=== PATIENT | female | born 1935 | race Caucasian/White ===

== ENCOUNTER → 2017-10-18 11:48 | Outpatient (CLI) | payer MEDICARE, OTHER, SELFPAY ==
[2017-10-18 11:56] LABS: Mucous, Urine 0 SEEN /hpf (<or=2+); Red Blood Cells-Urine 0 SEEN /hpf (0-5)
[2017-10-18 16:01] LABS: Color, Urine Yellow (Yellow); Glucose, Dipstick Normal (Normal); Ketone-Dipstick Negative (Negative); Leukocyte Esterase-Dipstick 500 /ul (Negative); Nitrite-Dipstick Positive (Negative); Occult Blood-Urine Negative /ul (Negative); Protein-Dipstick Negative (Negative); Urine Bilirubin Dipstick Negative (Negative); Urine Clarity Sl. Cloudy (Clear); Urine Urobilinogen Normal (Normal)
[2017-10-18 16:16] LABS: Anion Gap 8 (5-15); BUN 12 mg/dL (7-18); BUN/Creat Ratio 21.1 RATIO (10-20); Calcium,Total 9.2 mg/dL (8.5-10.1); Chloride 103 mmol/L (98-107); Creatinine, Serum 0.57 mg/dL (0.55-1.02); EST Glomerular Filtration Rate 108 mL/min (>60); Est Glom Filt Rate - Afr Amer 131 mL/min (>60); Glucose 82 mg/dL (70-110); Sodium Level 140 mmol/L (136-145); Thyroid Stim Hormone (TSH) 1.11 uIU/mL (0.358-3.74)
[2017-10-18 16:21] LABS: Squamous Epithelial Cells - UA 0-5 SEEN /hpf (5-10); White Blood Cells 10-25 SEEN /hpf (0-5)
[2017-10-18 16:22] LABS: Bacteria RARE /hpf (None Seen)
== END ==
PROVIDERS: Family Provider Family Medicine; PCP Family Medicine; Visit Provider Family Medicine
DX: I10 Essential (primary) hypertension (principal); E03.9 Hypothyroidism, unspecified
CPT/HCPCS: 36415; 80048; 81001; 84443

== ENCOUNTER 2017-11-07 13:00 | Outpatient (RCR) | payer MEDICARE, OTHER, SELFPAY ==
--- NOTE | 2017-10-25 13:21 | HP.PTEVAL_ITS ---
Patient's Visit Information DAVIAN ESCALERA is a 81 year old F referred to Physical Therapy by ALISHA AZUL with a diagnosis of Physical deconditioning.. Date of Evaluation: 10/25/17 Physical Therapist: Abran Torres DPT, OC - Visit Plan Frequency: 2x /Week Duration: 4-6 Weeks Plan: 2x/week for 4 weeks... 1. Teach machines for LE strength and work to I membership. 2. Teach balance ex on foam and or ec and dynamic and work to I with pics. 3. Functional steps and transfer to and fro floor. - Subjective Subjective: Has meningiomas and gets checked yearly. Doctor thought that she needs some ex for balance and because she is inactive. Tumors are front and R. Physical therapy in the past has made her feel. PT admits to getting winded easy and being unsteady although no falls recently. Last fall was a number of months ago as she was bending to get something in the closet. Got back up was a struggle but was able to do it. H/O B knee and hip replacement. Aslo hard to get out of tub, needed to call grandchildren to get out of tub last time so does not do it anymore (take a bath). Would love to take a bath. Did not have the strength. 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 No spinning. No numbness in legs but feels like she may have neuropathy. Had injection in R shoulder 3 months ago. Sleep is OK but stays up late as she is a night owl. Gets 7 hours sleep. Has cane that she uses occasionally if out of breath or tired and walking into college basketball games. Has steps to basement with railing to do laundry, doesnt like the steps and they wear her out. Basic ADLs are OK, dresses self, not much cooking or cleaning, makes her own meals. Does not work outside of the home. No regular exercises. Sits alot of day TV computer and reading. - Objective Walks well safe and I on firm flat surface. trasnfers I. Steps are reciprocal and needs railing. reflexes patella and achilles 1/3. Sensation LE distally is limited to gross light touch. strength LE 3+ hips and ankles, 4- knees. Functionally weak on steps noticably. Coordination to reciprocal toe and heel tap is minimal deficits as is heel to alex. VOR is unable to walk and mvoe head while focussing, head stops. - Balance Scores Functional Gait Assessment Score: 19 % Disability: 36.6700 CATSIB Score (Max score 120 seconds): 83 - Goals Goal 1:: FGA to limit fall risk Goal Time Frame: 4-6 Weeks Goal 2:: Pat feel balance and strength 50% improved and I with approp continued home/gym ex program Goal Time Frame: 4-6 Weeks Goal 3:: Get up off floor to simulate getting out of tub I. Goal Time Frame: 4-6 Weeks - Rehabilitation Potential Physical Therapy Diagnosis: Imbalance and weakness leading to mobility deficits Rehabilitation Potential: Fair - Anticipated Interventions Patient/Client Instruction: Educate patient on: Condition For the Purpose of:: To decrease pain, To increase tolerance to activity/ condition/position Therapeutic Exercise to Include: Balance training, Flexibilty training, Gait and locomotor training For the Purpose of:: To improve ability of physical actions for home/community/ work/leisure, To improve gait and locomotor functions, To improve balance Thank you for the opportunity to evaluate your patient. For Medicare and Medicare HMO plans, please review the plan of care and approve it. It will need to be FAXED BACK to us at [phone] for Medicare purposes. Please let me know if there are questions or concerns regarding this plan of care. Physician Signature: Date:
--- NOTE | 2018-03-11 15:15 | HP.PTDCNRP_ITS ---
HP - Discharge Summary (1) - Patient Information DAVIAN ESCALERA was seen in my office for initial evaluation on 10/25/17. The following Plan of Care was established for this patient: Initial Frequency: 2x /Week Initial Duration: 4-6 Weeks - Anticipated Interventions Patient/Client Instruction: Educate patient on: Condition For the Purpose of:: To decrease pain, To increase tolerance to activity/ condition/position Therapeutic Exercise to Include: Balance training, Flexibilty training, Gait and locomotor training For the Purpose of:: To improve ability of physical actions for home/community/ work/leisure, To improve gait and locomotor functions, To improve balance This patient was last seen in our office 11/07/17. Pertinent comments regarding their Physical therapy will appear below: Pt seen 5 visits but cancelled his last three due to illness and neglected to reschedule including recheck. At this point, it has been over 3 months and I will discontinue due to nonattendance. At this point I will be discontinuing this patient from physical therapy. I would be happy to see this patient again in the future if found appropriate by the physician. Thank you! Abran Torres, DPT, OC
== END 2017-11-07 19:00 | disposition home or self-care (01) ==
LOC: PT 13:00
PROVIDERS: Family Provider Family Medicine; PCP Family Medicine
DX: R53.81 Other malaise (principal)
CPT/HCPCS: 97110; 97162

== ENCOUNTER → 2017-11-19 16:04 | Outpatient (CLI) | payer MEDICARE, OTHER, SELFPAY ==
--- NOTE | 2017-11-19 16:10 | RAD_ITS ---
STUDY: X-RAY CHEST REASON FOR EXAM: Female, 81 years old. Acute bronchitis cough TECHNIQUE: PA and lateral views of the chest. COMPARISON: June 29, 2016 chest x-ray FINDINGS: The lungs are clear and expanded. There is no demonstrated pleural abnormality. Normal size heart. Normal mediastinum and chip. Normal visualized pulmonary arteries. There is atherosclerotic tortuosity of the aortic arch and descending thoracic aorta. There are diffuse degenerative changes of the visualized thoracic spine. Normal visualized ribs, clavicles, and shoulders. There is partial visualization of a lumbar spine fusion. There is no demonstrated abnormality of the visualized soft tissue structures of the upper abdomen. RAD/Chest PA and Lateral IMPRESSION: Degenerative changes, as described above. Stable chest. No demonstrated acute cardiopulmonary process. Electronically Signed: Dianne Clark MD at 1:52 EST Tel , Service support ,
== END ==
PROVIDERS: Family Provider Family Medicine; PCP Family Medicine; Visit Provider Family Medicine
DX: J20.9 Acute bronchitis, unspecified (principal)
CPT/HCPCS: 71046

== ENCOUNTER → 2018-06-10 14:06 | Outpatient (CLI) | payer MEDICARE, OTHER, SELFPAY ==
[2018-06-10 15:28] LABS: Absolute Lymphocyte Count 1.59 X10^3/ul (0.83-4.51); Absolute Neutrophil Count 4.4 X10^3/uL (2.0-7.7); Basophil# 0.02 X10^3/uL; Basophil% 0.3 % (0-1); Eosinophil# 0.08 X10^3/uL; Eosinophils% 1.3 % (0-5); Hematocrit 43.2 % (37-47); Hemoglobin 13.7 g/dl (12.0-15.0); Lymphocyte # 1.59 X10^3/ul (4.0); Lymphocyte % 24.9 % (19-41); Mean Corp Hgb Conc 31.7 g/gl (32-36); Mean Corpuscular Hgb 27.6 pg (27.0-32.0); Mean Corpuscular Volume 86.9 fL (81-99); Mean Platelet Vol. 9.6 fl (6.2-12.0); Monocyte# 0.31 X10^3/uL; Monocyte% 4.9 % (0-10); Neutrophil # 4.37 X10^3/uL (2.7-7.7); Neutrophil % 68.4 % (47-70); Platelet Count 275 K/mm3 (150-450); RBC Distribution Width CV 14.3 % (11.6-14.6); RBC Distribution Width SD 45.2 fl (35.1-43.9); Red Blood Count 4.97 M/mm3 (4.2-5.4); White Blood Count 6.4 K/mm3 (4.4-11.0)
[2018-06-10 15:45] LABS: ALB/GLOB Ratio 1.1 RATIO (0.9-2.4); AST(SGOT) 20 U/L (15-37); Alanine Aminotransfer ALT/SGPT 26 U/L (13-56); Albumin, Serum 3.8 g/dL (3.2-5.0); Alkaline Phosphatase 71 U/L (45-117); Anion Gap 9 (5-15); BUN 17 mg/dL (7-18); BUN/Creat Ratio 24.8 RATIO (10-20); Calcium,Total 9.6 mg/dL (8.5-10.1); Chloride 105 mmol/L (98-107); Creatinine, Serum 0.69 mg/dL (0.55-1.02); EST Glomerular Filtration Rate 87 mL/min (>60); Est Glom Filt Rate - Afr Amer 105 mL/min (>60); Globulin 3.4 g/dL (2.2-4.2); Glucose 84 mg/dL (74-106); POSITIVE COUNT NO; POSITIVE DIFFERENTIAL NO; POSITIVE MORPHOLOGY NO; Potassium 4.2 mmol/L (3.5-5.1); Protein, Total 7.2 g/dL (6.4-8.2); Sodium Level 143 mmol/L (136-145); T4 Free Direct 1.19 ng/dL (0.76-1.46); Thyroid Stim Hormone (TSH) 1.31 uIU/mL (0.358-3.74)
== END ==
PROVIDERS: Family Provider Family Medicine; PCP Family Medicine; Visit Provider Family Medicine
DX: E03.9 Hypothyroidism, unspecified (principal); I10 Essential (primary) hypertension; F41.8 Other specified anxiety disorders
CPT/HCPCS: 36415; 80053; 84439; 84443; 85025

== ENCOUNTER → 2018-07-08 12:31 | Outpatient (CLI) | payer MEDICARE, OTHER, SELFPAY ==
--- NOTE | 2018-07-08 12:34 | BI_ITS ---
MAMMOGRAPHY - BILATERAL SCREENING REASON FOR EXAM: Female, 82 years old. Routine annual screening examination. PERTINENT HISTORY: Sister with breast cancer. Mother with breast cancer. Prior right excisional breast biopsy. TECHNIQUE: Digital bilateral breast kristian (3D mammographic acquisition) in the CC and MLO projections. 2-D mediolateral oblique (MLO) and craniocaudad (CC) views of both breasts were obtained. CAD: Full Field Digital Mammography with Computer Added Detection was performed. COMPARISON: Comparison is made with prior study dated June 14, 2017 and February 24, 2016. FINDINGS: Breast Composition: There are scattered areas of fibroglandular density. There are no dominant masses or suspicious calcifications. Stable benign-appearing axillary lymph nodes. No other significant abnormalities are identified. There has been no significant change since the prior study. BI/SCREENING MAMM (CAD), BILAT IMPRESSION: Stable bilateral screening mammogram. Yearly follow-up mammogram recommended. (A) ASSESSMENT CATEGORY: BIRADS Category 2: Benign. A letter regarding these results will be sent to the patient by the facility within 30 days. Approximately 10% of breast cancers are not detected by mammography. A normal mammogram should not delay biopsy of a clinically suspicious abnormality. [id number] Electronically Signed: Hari Gomez MD at 12:05 EDT Tel [phone], Service support ,
== END ==
PROVIDERS: Family Provider Family Medicine; PCP Family Medicine; Referring Provider Family Medicine; Visit Provider Family Medicine
DX: Z12.31 Encounter for screening mammogram for malignant neoplasm of breast (principal); M25.512 Pain in left shoulder; M25.511 Pain in right shoulder; M54.9 Dorsalgia, unspecified
CPT/HCPCS: 77063; 77067; 97035; 97110

== ENCOUNTER 2018-07-29 16:00 | Outpatient (RCR) | payer MEDICARE, OTHER, SELFPAY ==
--- NOTE | 2018-07-03 16:05 | HP.PTEVAL_ITS ---
Patient's Visit Information DAVIAN ESCALERA is a 82 year old F referred to Physical Therapy by Seb Cohen MD with a diagnosis of Bilateral shoulder pain, trap tightness.. Date of Evaluation: 07/03/18 Physical Therapist: Magy Garza - Visit Plan Frequency: 2x /Week Duration: 3 Weeks Plan: Focus on RC strengthening to increase balance with deltoid, proper posture, scapular stabilization, and pain free shoulder ROM. Encourage movement and motivation as pt. says she tends to avoid activity. - Subjective Subjective: Shoulder, neck, back pain for 2 years, no ZOYA. R hand dominant. Dr. Preciado said it may be rotator cuff about 6 months ago. Pain has gotten worse, he said to try PT. Started in traps and midline, now at shoulder mainly R and moving down arm and starting in L. Taking Tyelnol, Advil. Had low back fusion surgery 2013. No imaging for shoulders. No f/u scheduled. Injection a year ago, helped a couple days. Had bursitis in past. Describes pain mostly along c-spine, R lateral shoulder, and supraspinus fossa. Some deltoid pain left arm. Not very active. Pain described as prominent, deep pain. Painful to the touch. Current shoulder pain 8/10, worst 8/10, best 0/10 when sleeping and if taking Advil/Alieve/Extra Strength. Sometimes pain radiates to elbow. Every once and awhile numbness/tingling in hand. Occasional BETANCOURT. 2 meningeomas getting watched at [facility] MRI once a year, have not grown much. Cataract surgery in February. Lightheaded if get up too fast. Sometimes massage helps, have used pain patches, heat helps a little. Sleep on one side and then rotate to other; pain wakes up from sleep. If vaccuum or carrying laundry increase pain. Does not do much activity to avoid pain in shoulders and other places. Doing little cooking, difficulty reaching behind to shower, difficult dressing when have to reach behind. Does not run errands much, procrastinate. Attends [employer], goes out to eat, grandchildren. Feels shoulder pain and fatigue restricts from doing these activities. Sits a lot at home. Drives, able to enter/exit car. No recent falls. PMH: bilat. TKA, hip replacements, laminectomy and L3,4,5 fusion. Retired 20 years ago. . Medications: Vilma lax, centrum silver, citracal, hylaauronic acid, Altace, Carvedilol, Levothryoxine sodium. Goals: decrease pain. - Pain R shoulder Pain Intensity (Out of 10): 8 Pain Intensity Range: 0, 8 - Objective Gait: WFL, good arm swing. Posture: R shoulder elevated, FHP, rounded shoulders. Dermatomes: UE intact bilat. ROM: Cervical flex. WNL, ext. approx 20 deg, side bend approx 15 deg, rotation aprox 20 deg. L shoulder flex. and abd. approx 170 deg, R shoulder flex. and abd. approx 100 deg, shoudler ext. WFL, L IR reach to mid back, R IR reach to nearly touch low back with pain in R shoulder, IR/ER arms at side WFL, elbow, wrist, opposition WNL. Strength: L shoulder flex 4+/5, R flex. 4/5, L abd. 4/5, R abd 3+/5, ext. 5/5, IR/ER in neutral and 90 deg 4/5, most increased pain with IR. Scapular strength fair. Palpation: TTP along cervical spinous processes, medial border L scapula, and infrapinatus on R. Traps mild restriction. Special: Neer's (-), Guerrero Rodrigo (-) Empty Can (-), Drop arm R (+) - Goals Goal 1:: Pt. will be I with HEP and progressions. Goal Time Frame: 4-6 Weeks Goal 2:: Pt. will demonstrate R shoulder flexion to at least 160 degrees. Goal Time Frame: 4-6 Weeks Goal 3:: Pt. will maintain proper posture throughout session to demonstrate good scapular strength. Goal Time Frame: 4-6 Weeks Goal 4:: Pt. will increase shoulder strength to at least 4+/5 throughout. Goal Time Frame: 4-6 Weeks Goal 5:: Pt. will demonstrate R shoulder abd. to at least 150 degrees. Goal Time Frame: 4-6 Weeks Goal 6:: Pt. will report pain 4/10 or less for 1 week. Goal Time Frame: 4-6 Weeks - Rehabilitation Potential Physical Therapy Diagnosis: Pt. presents with hypomobility. Decreased neck and shoulder ROM, muscular imbalance, scapular strength and stability along with pain and poor posture limiting pt. from full pn free mobility for household and activities outside the house. Rehabilitation Potential: Good - Anticipated Interventions Patient/Client Instruction: Educate patient on: Benefits of Fitness Program For the Purpose of:: To improve nutrient delivery to tissue, To increase flexibility/ROM, To improve endurance Therapeutic Exercise to Include: Strength training, Power training, Endurance tr aining, Coordination, Body mechanics, Postural training, Flexibilty training, Passive ROM, Active ROM, Scapular Strength/Stabilization For the Purpose of:: To decrease pain, To decrease swelling/inflammation, To increase ROM, To improve muscle performance and motor function, To improve ability to perform ADL's, To increase tolerance to activity/condition/position, To improve performance and independence with ADL's TENS: Yes Cryotherapy (ice pack, ice massage): Yes Thermo therapy (hot pack): Yes Ultrasound (thermal/non thermal): Yes For the Purpose of:: To decrease pain Thank you for the opportunity to evaluate your patient. For Medicare and Medicare HMO plans, please review the plan of care and approve it. It will need to be FAXED BACK to us at [phone] for Medicare purposes. Please let me know if there are questions or concerns regarding this plan of care. Physician Signature: Date:
--- NOTE | 2018-07-25 11:53 | HP.PTREVAL ---
Seb Cohen MD, It has been my pleasure to treat DAVIAN ESCALERA over the last 7 visits for Bilateral shoulder pain, trap tightness.. Please see the progress note below for an update on the physical therapy plan of care! Subjective: Patient reports that the shoulders are not so good- Sometimes she feels they are better and others they are not. Sleep is worse. Feels its her fault she isn't better because she isn't doing her exercises. Right is still much worse and the left is starting to get there. Objective/Function: Gait: WFL, good arm swing. Posture: R shoulder elevated, FHP, rounded shoulders. Can correct with verbal cueing but does not maitain.ROM: WFL L shoulder flex. and abd. approx 170 deg, R shoulder flex. and abd. approx 130 deg, shoudler ext. WFL, L IR reach to mid back, R IR reach to nearly touch low back with pain in R shoulder, IR/ER arms at side WFL, elbow, wrist, opposition WNL. Strength: L shoulder flex 4+/5, R flex. 4/5, L abd. 4/5, R abd 4-/5, ext. 5/5, IR/ER in neutral and 90 deg 4/5, most increased pain with IR. Scapular strength fair. Plan Plan: Continue 2x a week for 3 weeks with strength exercises Goals Goal 1:: Pt. will be I with HEP and progressions. Goal Time Frame: 4-6 Weeks Goal Progress: Progressing Goal 2:: Pt. will demonstrate R shoulder flexion to at least 160 degrees. Goal Time Frame: 4-6 Weeks Goal Progress: Progressing Goal 3:: Pt. will maintain proper posture throughout session to demonstrate good scapular strength. Goal Time Frame: 4-6 Weeks Goal Progress: Progressing Goal 4:: Pt. will increase shoulder strength to at least 4+/5 throughout. Goal Time Frame: 4-6 Weeks Goal Progress: Progressing Goal 5:: Pt. will demonstrate R shoulder abd. to at least 150 degrees. Goal Time Frame: 4-6 Weeks Goal Progress: Progressing Goal 6:: Pt. will report pain 4/10 or less for 1 week. Goal Time Frame: 4-6 Weeks Goal Progress: Progressing Anticipated Interventions Patient/Client Instruction: Educate patient on: Benefits of Fitness Program For the Purpose of:: To improve nutrient delivery to tissue, To increase flexibility/ROM, To improve endurance Therapeutic Exercise to Include: Strength training, Power training, Endurance training, Coordination, Body mechanics, Postural training, Flexibilty training, Passive ROM, Active ROM, Scapular Strength/Stabilization For the Purpose of:: To decrease pain, To decrease swelling/inflammation, To increase ROM, To improve muscle performance and motor function, To improve ability to perform ADL's, To increase tolerance to activity/condition/position, To improve performance and independence with ADL's TENS: Yes Cryotherapy (ice pack, ice massage): Yes Thermo therapy (hot pack): Yes Ultrasound (thermal/non thermal): Yes For the Purpose of:: To decrease pain Please do not hesitate to contact me at [phone] by phone or if you have questions or concerns regarding this new plan of care! Sincerely, Magy Garza
== END 2018-07-29 19:00 | disposition home or self-care (01) ==
LOC: PT 16:00
PROVIDERS: Family Provider Family Medicine; PCP Family Medicine; Referring Provider Family Medicine; Visit Provider Family Medicine
DX: M25.512 Pain in left shoulder (principal); M25.511 Pain in right shoulder; M54.9 Dorsalgia, unspecified
CPT/HCPCS: 97035; 97110; 97140; 97161; 97164

== ENCOUNTER → 2019-01-06 15:25 | Outpatient (CLI) | payer MEDICARE, OTHER, SELFPAY ==
[2018-08-20 13:19] VITALS: BMI 38.9
[2019-01-08 16:07] LABS: Endomysial Antibody IgA Negative (Negative)
[2019-01-08 16:59] LABS: Immunoglobulin A 107 mg/dL (64-422); t-Transglutaminase IgA <2 U/mL (0-3)
[2019-01-11 15:20] LABS: Giardia Lamblia, Stool EIA Negative (Negative)
== END ==
PROVIDERS: Family Provider Family Medicine; PCP Family Medicine; Visit Provider Family Medicine
DX: R19.7 Diarrhea, unspecified (principal)
CPT/HCPCS: 36415; 82784; 83516; 86255; 87329; 87493; 87506

== ENCOUNTER → 2019-06-24 13:49 | Outpatient (CLI) | payer MEDICARE, OTHER, SELFPAY ==
[2019-05-13 12:30] VITALS: BMI 38.5
[2019-06-24 15:21] LABS: Absolute Lymphocyte Count 1.33 X10^3/uL (0.83-4.51); Absolute Neutrophil Count 5.3 X10^3/uL (2.0-7.7); Basophil# 0.04 X10^3/uL; Basophil% 0.5 % (0-1); Eosinophil# 0.12 X10^3/uL; Eosinophils% 1.6 % (0-5); Hematocrit 44.4 % (37-47); Hemoglobin 14.4 g/dL (12.0-15.0); Lymphocyte # 1.33 X10^3/ul (4.0); Lymphocyte % 18.3 % (19-41); Mean Corp Hgb Conc 32.4 g/dL (32-36); Mean Corpuscular Hgb 27.9 pg (27.0-32.0); Mean Platelet Vol. 9.6 fl (6.2-12.0); Monocyte# 0.45 X10^3/uL; Monocyte% 6.2 % (0-10); NRBC Flagged by Analyzer 0 % (0-5); Neutrophil # 5.31 X10^3/uL (2.7-7.7); Platelet Count 293 K/mm3 (150-450); RBC Distribution Width CV 13.9 % (11.6-14.6); Red Blood Count 5.16 M/mm3 (4.2-5.4); White Blood Count 7.3 K/mm3 (4.4-11.0)
[2019-06-24 15:57] LABS: ALB/GLOB Ratio 1.1 RATIO (0.9-2.4); AST(SGOT) 17 U/L (15-37); Alanine Aminotransfer ALT/SGPT 28 U/L (13-56); Albumin, Serum 3.8 g/dL (3.2-5.0); Alkaline Phosphatase 76 U/L (45-117); Anion Gap 9 (5-15); BUN 18 mg/dL (7-18); BUN/Creat Ratio 26.8 RATIO (10-20); Calcium,Total 9.3 mg/dL (8.5-10.1); Chloride 108 mmol/L (98-107); Creatinine, Serum 0.67 mg/dL (0.55-1.02); EST Glomerular Filtration Rate 89 mL/min (>60); Est Glom Filt Rate - Afr Amer 108 mL/min (>60); Globulin 3.4 g/dL (2.2-4.2); Glucose 87 mg/dL (74-106); Phosphorus 3.1 mg/dL (2.5-4.9); Potassium 4.2 mmol/L (3.5-5.1); Protein, Total 7.2 g/dL (6.4-8.2); Sodium Level 143 mmol/L (136-145); T4 Free Direct 1.28 ng/dL (0.76-1.46); Thyroid Stim Hormone (TSH) 1.41 uIU/mL (0.358-3.74)
== END ==
PROVIDERS: Family Provider Family Medicine; PCP Family Medicine; Visit Provider Family Medicine
DX: I10 Essential (primary) hypertension (principal); E03.9 Hypothyroidism, unspecified; R06.00 Dyspnea, unspecified; L29.9 Pruritus, unspecified
CPT/HCPCS: 36415; 80053; 84100; 84439; 84443; 85025

== ENCOUNTER → 2019-07-10 12:01 | Outpatient (CLI) | payer MEDICARE, OTHER, SELFPAY ==
[2019-05-13 12:30] VITALS: BMI 38.5
--- NOTE | 2019-07-10 12:04 | BI_ITS ---
MAMMOGRAPHY - BILATERAL SCREENING REASON FOR EXAM: Female, 83 years old. Routine annual screening examination. PERTINENT HISTORY: Sisters with breast cancer. Mother with breast cancer. Remote right excisional breast biopsy. TECHNIQUE: Digital bilateral breast kaylan (3D mammographic acquisition) in the CC and MLO projections. 2-D mediolateral oblique (MLO) and craniocaudad (CC) views of both breasts were obtained. CAD: Full Field Digital Mammography with Computer Added Detection was performed. COMPARISON: Comparison is made with prior examination in July 08, 2018 and June 14, 2017. FINDINGS: Breast Composition: There are scattered areas of fibroglandular density. There are no dominant masses or suspicious calcifications. Stable asymmetry of breast tissue where more breast tissue is seen in the left breast as compared to the right side. Stable appearance of the benign-appearing bilateral axillary lymph nodes. No other significant abnormalities are identified. There has been no significant change since the prior study. BI/SCREEN MAMM (CAD) W/KAYLAN BILAT IMPRESSION: Stable bilateral screening mammogram. Yearly follow-up mammogram recommended. (A) ASSESSMENT CATEGORY: BIRADS Category 2: Benign. A letter regarding these results will be sent to the patient by the facility within 30 days. Approximately 10% of breast cancers are not detected by mammography. A normal mammogram should not delay biopsy of a clinically suspicious abnormality. [id number] Electronically Signed: Hari Gomez, at 13:42 EDT , Service support ,
== END ==
PROVIDERS: Family Provider Family Medicine; PCP Family Medicine; Referring Provider Family Medicine; Visit Provider Family Medicine
DX: Z12.31 Encounter for screening mammogram for malignant neoplasm of breast (principal)
CPT/HCPCS: 77063; 77067

== ENCOUNTER → 2020-05-28 12:52 | Outpatient (CLI) | payer MEDICARE, OTHER, SELFPAY ==
[2020-05-18 12:59] VITALS: BMI 37.5
--- NOTE | 2020-05-28 12:53 | ECHOD_ITS ---
Reason For Study: CHF Procedure This was a 2D Doppler, Color Flow transthoracic echocardiogram. Exam performed in department. Left Ventricle Normal LV size. Left ventricular systolic function is normal. The estimated ejection fraction is 60 %. Stage 1 diastolic dysfunction. No regional wall motion abnormalities noted. Right Ventricle Normal RV size. Normal systolic function. Atria Normal left atrium. Normal right atrium. Mitral Valve Normal mitral valve. Tricuspid Valve Normal tricuspid valve. Aortic Valve Trisinus/trileaflet aortic valve. Great Vessels Normal aortic root. The pulmonary artery is normal size. Normal inferior vena cava. Pericardium/Pleural No pericardial effusion. MMode/2D Measurements & Calculations LVIDd: 4.8 cm IVSd: 1.1 cm Ao root diam: 3.3 cm LVIDs: 3.8 cm LVPWd: 1.2 cm RVDd: 2.8 cm FS: 20.4 % LAV(MOD-bp): 39.9 ml LVAd ap4: 30.2 cm2 SV(MOD-sp4): 40.4 ml LAV(MOD-bp) Indexed: 21.1 ml/m2 EDV(MOD-sp4): 97.4 ml LAV(MOD-sp2): 39.4 ml EDV(sp4-el): 101.7 ml LAV(MOD-sp4): 39.7 ml LVAs ap4: 21.6 cm2 ESV(MOD-sp4): 56.9 ml ESV(sp4-el): 58.8 ml EF(MOD-sp4): 41.5 % EF(sp4-el): 42.1 % SV(sp4-el): 42.8 ml LA dimension(2D): 3.4 cm LA A4 area: 15.7 cm2 RA A4 area: 11.6 cm2 Time Measurements MV dec time: 0.33 sec Doppler Measurements & Calculations MV E max good: 49.2 cm/sec Lat Peak E' Good: 4.5 cm/sec Med Peak E' Good: 3.8 cm/sec MV A max good: 97.7 cm/sec E/E' lat: 11.0 E/E' med: 12.9 MV E/A: 0.50 Ao V2 max: 164.5 cm/sec LV V1 max: 73.5 cm/sec PA V2 max: 71.0 cm/sec Ao max P.8 mmHg LV V1 max P.2 mmHg Interpretation Summary Normal LV size. Left ventricular systolic function is normal. The estimated ejection fraction is 60 %. Stage 1 diastolic dysfunction. Compared to previous study, the left ventricular systolic function has improved.. Ordering Physician: Jose Francisco Parkinson Referring Physician: CESAR GARCIA Performed By: Nevaeh Patino RDCS
== END ==
PROVIDERS: PCP Family Medicine; Referring Provider Internal Medicine Cardiovascular Disease; Visit Provider Internal Medicine Cardiovascular Disease
DX: R06.00 Dyspnea, unspecified (principal)
CPT/HCPCS: 93306

== ENCOUNTER → 2020-07-29 12:06 | Outpatient (CLI) | payer MEDICARE, OTHER, SELFPAY ==
[2020-05-18 12:59] VITALS: BMI 37.5
--- NOTE | 2020-07-29 12:08 | BI_ITS ---
MAMMOGRAPHY - BILATERAL SCREENING REASON FOR EXAM: Female, 84 years old. Routine annual screening examination. PERTINENT HISTORY: Sisters with breast cancer. Mother with breast cancer. Remote right excisional breast biopsy. TECHNIQUE: Digital bilateral breast kaylan (3D mammographic acquisition) in the CC and MLO projections. 2-D mediolateral oblique (MLO) and craniocaudad (CC) views of both breasts were obtained. CAD: Full Field Digital Mammography with Computer Added Detection was performed. COMPARISON: Comparison is made with prior study dated 07/10/2019 and 07/08/2018. FINDINGS: Breast Composition: There are scattered areas of fibroglandular density. There are no dominant masses or suspicious calcifications. Once again, there is stable asymmetry of breast tissue where more breast tissue is seen in the left breast as compared to the right side. Stable small benign-appearing bilateral axillary lymph nodes. No other significant abnormalities are identified. There has been no significant change since the prior study. BI/SCREEN MAMM (CAD) W/KAYLAN BILAT IMPRESSION: Stable bilateral screening mammogram. Yearly follow-up mammogram recommended. (A) ASSESSMENT CATEGORY: BIRADS Category 2: Benign. A letter regarding these results will be sent to the patient by the facility within 30 days. Approximately 10% of breast cancers are not detected by mammography. A normal mammogram should not delay biopsy of a clinically suspicious abnormality. [id number] Electronically Signed: Hari Gomez, at 13:12 EST , Service support ,
== END ==
PROVIDERS: PCP Family Medicine; Referring Provider Family Medicine; Visit Provider Family Medicine
DX: Z12.31 Encounter for screening mammogram for malignant neoplasm of breast (principal); Z80.3 Family history of malignant neoplasm of breast
CPT/HCPCS: 77063; 77067

== ENCOUNTER → 2020-09-14 10:59 | Outpatient (CLI) | payer MEDICARE, OTHER, SELFPAY ==
[2020-05-18 12:59] VITALS: BMI 37.5
[2020-08-30 15:43] VITALS: BMI 36.9
[2020-09-14 12:16] LABS: Absolute Lymphocyte Count 1.51 X10^3/uL (0.83-4.51); Absolute Neutrophil Count 3.8 X10^3/uL (2.0-7.7); Basophil# 0.04 X10^3/uL; Basophil% 0.7 % (0-1); Eosinophil# 0.12 X10^3/uL; Hematocrit 43.2 % (37-47); Hemoglobin 13.9 g/dL (12.0-15.0); Lymphocyte # 1.51 X10^3/ul (4.0); Lymphocyte % 25.4 % (19-41); Mean Corp Hgb Conc 32.2 g/dL (32-36); Mean Corpuscular Hgb 28.7 pg (27.0-32.0); Mean Corpuscular Volume 89.1 fL (81-99); Mean Platelet Vol. 9.6 fl (6.2-12.0); Monocyte# 0.45 X10^3/uL; Monocyte% 7.6 % (0-10); NRBC Flagged by Analyzer 0 % (0-5); Platelet Count 257 K/mm3 (150-450); RBC Distribution Width CV 14.5 % (11.6-14.6); RBC Distribution Width SD 46.3 fl (35.1-43.9); Red Blood Count 4.85 M/mm3 (4.2-5.4); White Blood Count 5.9 K/mm3 (4.4-11.0)
[2020-09-14 12:58] LABS: ALB/GLOB Ratio 1.1 RATIO (0.9-2.4); AST(SGOT) 12 U/L (15-37); Alanine Aminotransfer ALT/SGPT 23 U/L (13-56); Albumin, Serum 3.6 g/dL (3.2-5.0); Alkaline Phosphatase 75 U/L (45-117); Anion Gap 6 (5-15); BUN 17 mg/dL (7-18); BUN/Creat Ratio 26.1 RATIO (10-20); Calcium,Total 9.6 mg/dL (8.5-10.1); Chloride 106 mmol/L (98-107); Cholesterol 220 mg/dL (200); Creatinine, Serum 0.65 mg/dL (0.55-1.02); EST Glomerular Filtration Rate 92 mL/min (>60); Est Glom Filt Rate - Afr Amer 111 mL/min (>60); Globulin 3.4 g/dL (2.2-4.2); Glucose 82 mg/dL (74-106); High Density Lipoprotein 58 mg/dL; Potassium 4.5 mmol/L (3.5-5.1); Sodium Level 141 mmol/L (136-145); T4 Free Direct 1.22 ng/dL (0.76-1.46); Thyroid Stim Hormone (TSH) 0.98 uIU/mL (0.358-3.74); Triglycerides 130 mg/dL; Very Low Density Lipoprotein 26 mg/dL (5-40)
== END ==
PROVIDERS: PCP Family Medicine; Visit Provider Family Medicine
DX: I10 Essential (primary) hypertension (principal); F41.8 Other specified anxiety disorders; E03.9 Hypothyroidism, unspecified; I42.8 Other cardiomyopathies
CPT/HCPCS: 36415; 80053; 80061; 84439; 84443; 85025

== ENCOUNTER 2021-11-01 14:49 | Outpatient (CLI) | payer MEDICARE, OTHER, SELFPAY ==
--- NOTE | 2021-11-01 14:52 | BI_ITS ---
MAMMOGRAPHY - BILATERAL SCREENING REASON FOR EXAM: Female, 85 years old. Routine annual screening examination. PERTINENT HISTORY: Sisters with breast cancer. Mother with breast cancer. TECHNIQUE: Digital bilateral breast kaylan (3D mammographic acquisition) in the CC and MLO projections. 2-D mediolateral oblique (MLO) and craniocaudad (CC) views of both breasts were obtained. CAD: Full Field Digital Mammography with Computer Added Detection was performed. COMPARISON: Comparison is made with prior study dated 07/29/2020 and 07/10/2019. FINDINGS: Breast Composition: There are scattered areas of fibroglandular density. There are no dominant masses or suspicious calcifications. Stable asymmetry of breast tissue where more breast tissue is seen in the left breast as compared to the right side. Stable small benign appearing bilateral axillary lymph. No other significant abnormalities are identified. There has been no significant change since the prior study. BI/SCRN MAMM (CAD)W/KAYLAN BILAT IMPRESSION: Stable bilateral screening mammogram. Yearly follow-up mammogram recommended. (A) ASSESSMENT CATEGORY: BIRADS Category 2: Benign. A letter regarding these results will be sent to the patient by the facility within 30 days. Approximately 10% of breast cancers are not detected by mammography. A normal mammogram should not delay biopsy of a clinically suspicious abnormality. [id number] Electronically Signed: Hari Gomez MD at 15:44 EST ,
== END 2021-11-01 23:59 | disposition home or self-care (01) ==
LOC: OPBI 14:49
PROVIDERS: PCP Family Medicine; Referring Provider Obstetrics & Gynecology; Visit Provider Obstetrics & Gynecology
DX: Z12.31 Encounter for screening mammogram for malignant neoplasm of breast (principal); Z80.3 Family history of malignant neoplasm of breast
CPT/HCPCS: 77063; 77067

== ENCOUNTER → 2023-01-31 | Outpatient (CLI) | payer MEDICARE, OTHER, SELFPAY ==
--- NOTE | 2023-01-31 14:12 | BI_ITS ---
MAMMOGRAPHY - BILATERAL SCREENING REASON FOR EXAM: Female, 87 years old. Routine annual screening examination. PERTINENT HISTORY: Sisters with breast cancer. Mother with breast cancer. Prior right excisional breast biopsy and aspiration. TECHNIQUE: Digital bilateral breast kaylan (3D mammographic acquisition) in the CC and MLO projections. 2-D mediolateral oblique (MLO) and craniocaudad (CC) views of both breasts were obtained. CAD: Full Field Digital Mammography with Computer Added Detection was performed. COMPARISON: Comparison is made with prior study November 01, 2021 and July 29, 2020. FINDINGS: Breast Composition: There are scattered areas of fibroglandular density. There are no dominant masses or suspicious calcifications. No other significant abnormalities are identified. There has been no significant change since the prior study. BI/SCRN MAMM (CAD)W/KAYLAN BILAT IMPRESSION: Stable bilateral screening mammogram. Yearly follow-up mammogram recommended. (A) ASSESSMENT CATEGORY: BIRADS Category 1: Negative. A letter regarding these results will be sent to the patient by the facility within 30 days. Approximately 10% of breast cancers are not detected by mammography. A normal mammogram should not delay biopsy of a clinically suspicious abnormality. [id number] Electronically Signed: Hari Gomez MD at 15:28 EDT ,
== END | disposition home or self-care (01) ==
LOC: OPBI 14:11
PROVIDERS: PCP Family Medicine; Referring Provider Obstetrics & Gynecology; Visit Provider Obstetrics & Gynecology
DX: Z12.31 Encounter for screening mammogram for malignant neoplasm of breast (principal); Z80.3 Family history of malignant neoplasm of breast
CPT/HCPCS: 77063; 77067

== ENCOUNTER → 2023-02-09 | Outpatient (CLI) | payer MEDICARE, OTHER, SELFPAY ==
--- NOTE | 2023-02-09 13:08 | VDLE_ITS ---
Reason For Study: Left Calf Pain RIGHT LEFT CFV is compressible, spontaneous, phasic, GSV is normal. competent and demonstrates normal CFV is compressible, spontaneous, phasic, augmentation. competent, and demonstrates normal Procedure augmentation. This is a venous duplex using B-mode, color FV is compressible, spontaneous, phasic, flow and spectral Doppler. competent and demonstrates normal Exam performed in department. augmentation. The exam was diagnostic. POP V is compressible, spontaneous, phasic, A preliminary report was called and/or faxed competent and demonstrates normal to Yoli Mane MANAGER OF MERCHANDISING. augmentation. T/P Trunk is compressible. PTV is compressible. LT PerV is compressible. VL/Venous Duplex US, Unilateral Interpretation Summary There is no evidence of left lower extremity deep vein thrombosis. Left great s aphenous vein appears patent and compressible segmentally. Normal flow patterns right common femoral vein Ordering Physician: Yoli Mane Referring Physician: Yoli Mane Performed By: Saji Fajardo RVT
[2023-02-09 13:23] LABS: Absolute Lymphocyte Count 1.54 X10^3/uL (0.83-4.51); Absolute Neutrophil Count 6.3 X10^3/uL (2.0-7.7); Basophil# 0.03 X10^3/uL; Basophil% 0.4 % (0-1); Eosinophils% 1.2 % (0-5); Hematocrit 44.5 % (37-47); Hemoglobin 14.3 g/dL (12.0-15.0); Lymphocyte # 1.54 X10^3/ul (0.83-4.51); Mean Corp Hgb Conc 32.1 g/dL (32-36); Mean Corpuscular Hgb 27.7 pg (27.0-32.0); Mean Corpuscular Volume 86.2 fL (81-99); Mean Platelet Vol. 9.2 fl (6.2-12.0); Monocyte# 0.51 X10^3/uL; NRBC Flagged by Analyzer 0 % (0-5); Neutrophil # 6.34 X10^3/uL (2.7-7.7); Neutrophil % 74.2 % (47-70); Platelet Count 269 K/mm3 (150-450); RBC Distribution Width CV 14.7 % (11.6-14.6); RBC Distribution Width SD 47.1 fl (35.1-43.9); Red Blood Count 5.16 M/mm3 (4.2-5.4); White Blood Count 8.5 K/mm3 (4.4-11.0)
[2023-02-09 14:03] LABS: ALB/GLOB Ratio 1.1 RATIO (0.9-2.4); AST(SGOT) 15 U/L (15-37); Alanine Aminotransfer ALT/SGPT 20 U/L (13-56); Albumin, Serum 3.7 g/dL (3.2-5.0); Alkaline Phosphatase 69 U/L (45-117); Anion Gap 6 (5-15); BUN 18 mg/dL (7-18); BUN/Creat Ratio 26.1 RATIO (10-20); Calcium,Total 9.6 mg/dL (8.5-10.1); Chloride 107 mmol/L (98-107); Cholesterol 218 mg/dL (200); Creatinine, Serum 0.69 mg/dL (0.55-1.02); EST Glomerular Filtration Rate 86 mL/min (>60); Est Glom Filt Rate - Afr Amer 104 mL/min (>60); Globulin 3.5 g/dL (2.2-4.2); Glucose 94 mg/dL (74-106); High Density Lipoprotein 66 mg/dL; Potassium 4.4 mmol/L (3.5-5.1); Protein, Total 7.2 g/dL (6.4-8.2); Sodium Level 142 mmol/L (136-145); T4 Free Direct 1.28 ng/dL (0.76-1.46); Thyroid Stim Hormone (TSH) 0.86 uIU/mL (0.358-3.74); Triglycerides 133 mg/dL; Very Low Density Lipoprotein 27 mg/dL (5-40)
== END | disposition home or self-care (01) ==
LOC: CVS 12:54
PROVIDERS: PCP Family Medicine; Referring Provider Nurse Practitioner Family; Visit Provider Nurse Practitioner Family
DX: I10 Essential (primary) hypertension (principal); E03.9 Hypothyroidism, unspecified; E78.5 Hyperlipidemia, unspecified; M79.662 Pain in left lower leg
CPT/HCPCS: 36415; 80053; 80061; 84439; 84443; 85025; 93971

== ENCOUNTER → 2024-02-13 | Outpatient (CLI) | payer MEDICARE, OTHER, SELFPAY ==
[2024-02-13 15:21] LABS: Absolute Lymphocyte Count 1.44 X10^3/uL (0.83-4.51); Absolute Neutrophil Count 5.1 X10^3/uL (2.0-7.7); Basophil# 0.02 X10^3/uL; Basophil% 0.3 % (0-1); Eosinophil# 0.12 X10^3/uL; Eosinophils% 1.7 % (0-5); Hematocrit 43.3 % (37-47); Hemoglobin 13.6 g/dL (12.0-15.0); Lymphocyte # 1.44 X10^3/ul (0.83-4.51); Lymphocyte % 20.1 % (19-41); Mean Corp Hgb Conc 31.4 g/dL (32-36); Mean Corpuscular Hgb 27.4 pg (27.0-32.0); Mean Corpuscular Volume 87.1 fL (81-99); Monocyte# 0.43 X10^3/uL; NRBC Flagged by Analyzer 0 % (0-5); Neutrophil # 5.12 X10^3/uL (2.7-7.7); Neutrophil % 71.5 % (47-70); Platelet Count 282 K/mm3 (150-450); RBC Distribution Width CV 14.3 % (11.6-14.6); RBC Distribution Width SD 45.8 fl (35.1-43.9); Red Blood Count 4.97 M/mm3 (4.2-5.4); White Blood Count 7.2 K/mm3 (4.4-11.0)
[2024-02-13 16:02] LABS: Vitamin B12 599 pg/mL (211-911); Vitamin D,25 Hydroxy 40.8 ng/mL
[2024-02-13 16:13] LABS: ALB/GLOB Ratio 1.1 RATIO (0.9-2.4); AST(SGOT) 19 U/L (15-37); Alanine Aminotransfer ALT/SGPT 20 U/L (13-56); Albumin, Serum 3.7 g/dL (3.2-5.0); Alkaline Phosphatase 69 U/L (45-117); Anion Gap 7 (5-15); BUN 16 mg/dL (7-18); BUN/Creat Ratio 22.8 RATIO (10-20); Calcium,Total 9.7 mg/dL (8.5-10.1); Chloride 106 mmol/L (98-107); Cholesterol 189 mg/dL (200); EST Glomerular Filtration Rate 84 mL/min (>60); Est Glom Filt Rate - Afr Amer 101 mL/min (>60); Globulin 3.3 g/dL (2.2-4.2); Glucose 89 mg/dL (74-106); High Density Lipoprotein 64 mg/dL; Potassium 4.2 mmol/L (3.5-5.1); Sodium Level 139 mmol/L (136-145); T4 Free Direct 1.59 ng/dL (0.76-1.46); Thyroid Stim Hormone (TSH) 0.21 uIU/mL (0.358-3.74); Triglycerides 82 mg/dL; Very Low Density Lipoprotein 16 mg/dL (5-40)
== END | disposition home or self-care (01) ==
LOC: BFHLAB 13:34
PROVIDERS: PCP Nurse Practitioner Family; Referring Provider Nurse Practitioner Family; Visit Provider Nurse Practitioner Family
DX: I10 Essential (primary) hypertension (principal); E03.9 Hypothyroidism, unspecified; E78.5 Hyperlipidemia, unspecified; E55.9 Vitamin D deficiency, unspecified; E53.8 Deficiency of other specified B group vitamins
CPT/HCPCS: 36415; 80053; 80061; 82306; 82607; 84439; 84443; 85025

== ENCOUNTER → 2024-02-18 | Outpatient (CLI) | payer MEDICARE, OTHER, SELFPAY ==
--- NOTE | 2024-02-18 15:36 | BI_ITS ---
MAMMOGRAPHY - BILATERAL SCREENING REASON FOR EXAM: Female, 88 years old. Routine annual screening examination. PERTINENT HISTORY: Sisters with breast cancer. Mother with breast cancer. Remote right excisional breast biopsy and breast aspiration. TECHNIQUE: Digital bilateral breast kaylan (3D mammographic acquisition) in the CC and MLO projections. 2-D mediolateral oblique (MLO) and craniocaudad (CC) views of both breasts were obtained. CAD: Full Field Digital Mammography with Computer Added Detection was performed. COMPARISON: Comparison is made with prior study dated January 31, 2023 and November 01, 2021. FINDINGS: Breast Composition: There are scattered areas of fibroglandular density. There are no dominant masses or suspicious calcifications. Stable benign-appearing axillary lymph nodes. No other significant abnormalities are identified. There has been no significant change since the prior study. BI/SCRN MAMM (CAD)W/KAYLAN BILAT IMPRESSION: Stable bilateral screening mammogram. Yearly follow-up mammogram recommended. (A) ASSESSMENT CATEGORY: BIRADS Category 2: Benign. A letter regarding these results will be sent to the patient by the facility within 30 days. Approximately 10% of breast cancers are not detected by mammography. A normal mammogram should not delay biopsy of a clinically suspicious abnormality. [id number] Electronically Signed: Hari Gomez MD at 8:36 EDT ,
== END | disposition home or self-care (01) ==
LOC: OPBI 15:34
PROVIDERS: PCP Nurse Practitioner Family; Referring Provider Nurse Practitioner Family; Visit Provider Nurse Practitioner Family
DX: Z12.31 Encounter for screening mammogram for malignant neoplasm of breast (principal); Z80.3 Family history of malignant neoplasm of breast
CPT/HCPCS: 77063; 77067

== ENCOUNTER → 2024-08-08 | Outpatient (CLI) | payer MEDICARE, OTHER, SELFPAY ==
[2024-08-08 15:38] LABS: Absolute Lymphocyte Count 1.29 X10^3/uL (0.83-4.51); Absolute Neutrophil Count 4.8 X10^3/uL (2.0-7.7); Basophil# 0.06 X10^3/uL; Basophil% 0.9 % (0-1); Eosinophil# 0.24 X10^3/uL; Eosinophils% 3.5 % (0-5); Hematocrit 42.7 % (37-47); Hemoglobin 13.6 g/dL (12.0-15.0); Lymphocyte # 1.29 X10^3/ul (0.83-4.51); Lymphocyte % 18.7 % (19-41); Mean Corp Hgb Conc 31.9 g/dL (32-36); Mean Corpuscular Hgb 27.6 pg (27.0-32.0); Mean Corpuscular Volume 86.6 fL (81-99); Mean Platelet Vol. 9.6 fl (6.2-12.0); Monocyte% 7.2 % (0-10); NRBC Flagged by Analyzer 0 % (0-5); Neutrophil # 4.79 X10^3/uL (2.7-7.7); Neutrophil % 69.3 % (47-70); Platelet Count 278 K/mm3 (150-450); RBC Distribution Width CV 13.9 % (11.6-14.6); RBC Distribution Width SD 44.5 fl (35.1-43.9); Red Blood Count 4.93 M/mm3 (4.2-5.4); White Blood Count 6.9 K/mm3 (4.4-11.0)
[2024-08-08 16:39] LABS: AST(SGOT) 13 U/L (15-37); Alanine Aminotransfer ALT/SGPT 19 U/L (13-56); Albumin, Serum 3.5 g/dL (3.2-5.0); Alkaline Phosphatase 70 U/L (45-117); Anion Gap 8 (5-15); BUN 15 mg/dL (7-18); BUN/Creat Ratio 22.2 RATIO (10-20); Calcium,Total 9.6 mg/dL (8.5-10.1); Chloride 106 mmol/L (98-107); Cholesterol 207 mg/dL (200); Creatinine, Serum 0.68 mg/dL (0.55-1.02); EST Glomerular Filtration Rate 87 mL/min (>60); Est Glom Filt Rate - Afr Amer 106 mL/min (>60); Globulin 3.5 g/dL (2.2-4.2); Glucose 96 mg/dL (74-106); High Density Lipoprotein 53 mg/dL; Potassium 4.3 mmol/L (3.5-5.1); Sodium Level 139 mmol/L (136-145); T4 Free Direct 1.14 ng/dL (0.76-1.46); Triglycerides 186 mg/dL; Very Low Density Lipoprotein 37 mg/dL (5-40)
== END | disposition home or self-care (01) ==
LOC: BFHLAB 13:35
PROVIDERS: PCP Nurse Practitioner Family; Referring Provider Nurse Practitioner Family; Visit Provider Nurse Practitioner Family
DX: E03.9 Hypothyroidism, unspecified (principal); I10 Essential (primary) hypertension; E78.5 Hyperlipidemia, unspecified
CPT/HCPCS: 36415; 80053; 80061; 84439; 84443; 85025

== ENCOUNTER 2024-09-23 14:40 | Day surgery (SDC) | payer MEDICARE, OTHER, SELFPAY ==
--- NOTE | 2024-09-23 | IMM_PTH ---
PATIENT: DAVIAN ESCALERA LOC: EN U#:[id number] AGE/SX: 88/F ROOM: RE09/23/[address]: Dr. Radhames Casillas DO : 1935 BED: DIS: 09/23/2024 SPEC #: [id number] RECD: 09/25/24 11:24 STATUS: KAYLA RESonja #: [id number] THELMA: 09/23/24 00:[address]: Radhames Casillas DEPT: IMMUNOHISTOCHEMISTRY RECD BY: Geoff Manzano ENTERED: 09/25/24 11:25 SP TYPE: IMMUNO OTHR DR: Yoli Mane, DRUM SANDER OFFBEARER-C Tissues: A - Gastric mucous membrane Procedures: H Pylori (initial) PHYSICIAN & INSTITUTION [place] [id number] SPECIMEN INFORMATION: Tissue Source: A- Gastric polyp biopsy Clinical Info: Constipation, diarrhea Specimen Number: [id number] CPT code: 53658 METHODOLOGY: Deparaffinized sections of prefer/formalin-fixed tissue or PAP/DQ stained slides are incubated with monoclonal/polyclonal antibodies/oligonucleotide probes. Localization is made via biotin free immunoperoxidase method. Appropriate controls are performed and reacted as expected. Results on target cell population are indicated in the following table: RESULTS: ANTIBODY / CLONE RESULT Block A H Pylori (polyclonal) negative These tests were developed and their performance characteristics determined by [facility]. They may not have been cleared or approved by the U.S. Food and Drug Administration. The FDA has determined that such clearance or approval is not necessary. The above immunohistochemical/dualISH markers are ordered and reviewed by the Pathologist. INTERPRETATION: A. Gastric polyp, biopsy: Negative for Helicobacter pylori organisms. 09/26/2024
[2024-09-23 15:08] VITALS: BP 155/79; PULSE 70; RESP 16; TEMP 36.6; O2SAT 97; BMI 36.1
--- NOTE | 2024-09-23 15:30 | COLBX_PTH ---
PATIENT: DAVIAN ESCALERA LOC: EN U#:[id number] AGE/SX: 88/F ROOM: RE09/23/[address]: Dr. Radhames Casillas DO : 1935 BED: DIS: 09/23/2024 SPEC #: [id number] RECD: 09/23/24 17:18 STATUS: KAYLA ALEXYS #: [id number] THELMA: 09/23/24 15:[address]: Radhames Casillas DEPT: SURGICAL PATHOLOGY RECD BY: Katie Quinones ENTERED: 09/24/24 09:06 SP TYPE: COLON BX OTHR DR: Yoli Mane, AGER OPERATOR-C Tissues: A - Gastric mucous membrane B - Cecum, NOS C - COLON BIOPSY Procedures: Surgery Specimen Level IV HEADER OPERATION: Colonoscopy, EGD, biopsy PRE-OP DIAGNOSIS: Constipation, diarrhea TISSUE SUBMITTED: A- Gastric polyp biopsy, B- Cecal polyp biopsy, C- Random colonic biopsy MICROSCOPIC DIAGNOSIS A. Gastric polyp, biopsy: Moderate gastritis. See microscopic description and comment. B. Cecal polyp, biopsy: Fragments of tubular adenoma. C. Colon, random biopsy: Fragments of colonic mucosa, no pathologic diagnosis. 09/25/2024 COMMENT A. The results of immunohistochemistry for Helicobacter pylori will be reported separately ([id number]). MICROSCOPIC DESCRIPTION Slides are reviewed. A. The specimen shows fragments of gastric mucosa with chronic inflammatory cell infiltrates in the lamina propria consisting of lymphocytes and plasma cells, consistent with moderate chronic gastritis. GROSS DESCRIPTION A. Received in fixative is one container labeled with the patient's name and designated Gastric polyp biopsy. The specimen consists of one irregular fragment of light bauman soft tissue that measures 0.7 x 0.4 x 0.1 cm. The specimen is totally submitted in one cassette. B. Received in fixative is one container labeled with the patient's name and designated Cecal polyp biopsy. The specimen consists of multiple irregular fragments of light bauman soft tissue that in aggregate measure 1.0 x 0.5 x 0.1 cm. The specimen is totally submitted in one cassette. C. Received in fixative is one container labeled with the patient's name and designated Random colonic biopsy. The specimen consists of multiple irregular fragments of light bauman soft tissue that in aggregate measure 1.5 x 0.5 x 0.2 cm. The specimen is totally submitted in one cassette. 09/24/2024 TC:1 CPT:82375b5
--- NOTE | 2024-09-23 15:33 | HP.PCM_ITS ---
HPI - General General Date of Admission: 09/23/24 Date of Service: 09/23/24 Chief Complaint: Diarrhea HPI Narrative DAVIAN ESCALERA, is a 88 F who presentsSOL ESCALERA, is a 88 F who presents to the office today for initial consult. *[facility] established 1.3 pt referred by primary for colonoscopy due to worsening symptoms. Pt reports she has always had constipation, but in the past few months miralax stopped working for her, her primary gave her lactulose. Since taking lactulose pt is having daily incontinence and only liquid stools. Pt reports she thinks there is a blockage she has been unable to pass. Pt reports lactulose gives her a stomachache and increased flatulence. Pt reports her last colonoscopy was 5 years ago. [facility] Medical History Lichen sclerosus Hypothyroidism Non-ischemic cardiomyopathy Chronic systolic heart failure Essential (primary) hypertension Lichen sclerosus et atrophicus Cystocele and rectocele with incomplete uterovaginal prolapse Osteoarthritis Vision problems Kidney stones IBS (irritable bowel syndrome) Hearing loss Depression Anxiety Breast lump in female DVT (deep venous thrombosis) Back problem Arthritis Seasonal allergies Hyperlipemia Body mass index (BMI) 35 or more Obesity Home Medications ?Medication ?Instructions ?Recorded ?Last Taken ?Type levothyroxine 100 mcg tablet 100 mcg PO DAILY 10/31/13 07/17/16 History ramipril 10 mg capsule 10 mg PO DAILY 10/31/13 09/23/24 History multivitamin with folic acid 400 1 tab PO DAILY 07/14/16 Unknown History mcg tablet Curt Move Free Ultra PO DAILY 05/13/19 Unknown History cranberry concentrate-ascorbic 2 cap PO .qday PRN uti 05/18/20 Unknown History acid 4,200 mg-20 mg capsule lactobacillus combination no.8 3 3,000 mmu cells PO DAILY 08/30/20 Unknown History billion cell capsule (Adult Probiotic) calcium 250 mg (as 1 tab PO DAILY 11/16/20 Unknown History citrate)-vitamin D3 5 mcg (200 unit) tablet (Citracal Regular) clobetasol 0.05 % topical ointment 1 applic topical QHS PRN itching 01/19/23 Unknown Rx #30 grams carvedilol 6.25 mg tablet 6.25 mg PO BID #180 TABLETS 07/18/24 09/23/24 07:00 Rx Allergy/AdvReac Type Severity Reaction Status Date / Time Penicillins Allergy Anaphylaxis Verified 09/23/24 15:04 shrimp Allergy Unknown Verified 09/23/24 15:04 procaine (From Novocain) AdvReac Severe / Verified 09/23/24 15:04 amoxicillin AdvReac Intermediate / Verified 09/23/24 15:04 Family History Mother Breast cancer CAD (coronary artery disease) Brother Asthma Heart disease Bronchitis Father Parkinsons disease Sister Breast cancer Heart disease Daughter Anxiety Son COPD (chronic obstructive pulmonary disease) Alcoholism Other Family history of alcohol abuse Surgical History History of left heart catheterization (07/17/16) Hx of breast lump removal H/O laminectomy H/O bilateral hip replacements History of bilateral knee replacement S/P excision of White's neuroma History of bladder suspension procedure History of hysterectomy H/O umbilical hernia repair History of appendectomy H/O adenoidectomy History of tonsillectomy H/O tubal ligation Cataracts, bilateral Social History Smoking Status: Former smoker quit date: 09/16/71 how long ago did patient quit smokin second hand exposure: No alcohol intake: current alcohol intake frequency: a few times a week Alcohol type: wine substance use type: does not use caffeine: Yes Type: coffee Number of servings: 3 what type of physical activity do you participate in: none seatbelt use: always do you feel safe at home: Yes ROS Constitutional Constitutional: Denies fatigue, fever(s), poor appetite, weight gain or weight loss Gastrointestinal Gastrointestinal: Denies belching, bloating, change in bowel habits, change in stool character, chewing difficulty, coffee ground emesis, constipation, cramping, diarrhea, dyspepsia, dysphagia, early satiety, excessive flatus, fecal incontinence, heartburn, hematemesis, hematochezia, hemorrhoids, loose stools, melena, nausea, odynophagia, rectal bleeding, tenesmus, vomiting or weight changes Vital Signs Vital Signs Vital Signs: 09/23/24 15:08 Temperature 97.8 F Temperature Source Temporal Pulse Rate 70 Respiratory Rate 16 Blood Pressure 155/79 H Blood Pressure Mean 104 Blood Pressure Source Monitor Blood Pressure Position Semi-Fowlers Blood Pressure Location Right Arm Pulse Ox 97 Oxygen Delivery Method Room Air Weight Weight: 191 lb Body Mass Index (BMI) 36.1 Physical Exam Const alert, oriented x3, no apparent distress and healthy appearing General Appearance: cooperative GI normal to inspection, nondistended, normoactive bowel sounds, soft to palpation, non-tender and non-distended Percussion: normal to percussion Rectal Exam: deferred Assessment & Plan Assessment/Plan (1) Diarrhea: PLAN: Assessment and Plan Assessment and Plan (1) Constipation: Status: Acute (2) Diarrhea: Status: Acute Plan: I think she mostly has irritable bowel syndrome with constipation, diarrhea or both. However due to her change in stool diameter and other symptoms such as worsening diarrhea. We will check her stools for infection and inflammation. She will get a CT scan of the abdomen pelvis. It we may also get a gastric emptying study pending her colonoscopy.
--- NOTE | 2024-09-23 15:44 | PRE.ANES_ITS ---
ASA Classification* ASA Classification ASA Classification: 3 Assessment & Plan Anesthesia* Anesthesia Assessment Anesthesia Assessment: Discussed sedation and/or anesthesia options, risks, benefits, and alternatives with patient/parents/legal guardian/POA. Questions invited. The patient/parents/legal guardian/POA seems to understand and agrees to proceed with anesthesia plan. Reviewed the physical assessment, medical history, allergy history and patient home medications list prior to surgery/procedure/anesthetic and documented any changes. Performed airway and anesthesia risk assessments. Anesthesia Type Anesthesia Type: MAC History Source History Obtained from:: Patient and Chart Anesthesia Focused Assessment* Temperature: 97.8 F Pulse Rate: 70 Blood Pressure: 155/79 Respiratory Rate: 16 Pulse Ox: 97 Oxygen Delivery Method: Room Air Airway Assessment Mouth opens: >3 cm Mallampati Score: II Teeth Condition: Full (Patient has a full upper denture.) and Partial (Patient has a partial lower denture. Rest of her teeth are tight.) Neck Range of motion (ROM): Full ROM Focused Labs Anesthesia Preop lab: CBC WBC 6.9 K/mm3 (4.4-11.0) 08/08/24 13:36 RBC 4.93 M/mm3 (4.2-5.4) 08/08/24 13:36 Hgb 13.6 g/dL (12.0-15.0) 08/08/24 13:36 Hct 42.7 % (37-47) 08/08/24 13:36 Plt Count 278 K/mm3 (150-450) 08/08/24 13:36 CHEMISTRY Potassium 4.3 mmol/L (3.5-5.1) 08/08/24 13:36 Sodium 139 mmol/L (136-145) 08/08/24 13:36 Phosphorus 3.1 mg/dL (2.5-4.9) 06/24/19 13:50 BUN 15 mg/dL (7-18) 08/08/24 13:36 Creatinine 0.68 mg/dL (0.55-1.02) 08/08/24 13:36 Glucose 96 mg/dL (74-106) 08/08/24 13:36 TSH 1.240 uIU/mL (0.358-3.740) 08/08/24 13:36 COAG PT 13.2 SECONDS (11.7-14.9) 06/29/16 16:15 Pre-Assessment Diagnosis/Proposed Procedure Planned Operative Procedure(s): colonoscopy Anesthesia History Anesthesia History - public space attendant: Anesthesia History - public space attendant Hx Hospitalization No 09/23/24 15:08 Any Problems With Anesthesia Yes: PONV 09/23/24 15:08 Cholinesterase deficiency No 09/23/24 15:08 You/Your Family Experience No 09/23/24 15:08 fever (hyperthermia) with Relationship Recent Exposure to Contagious No 09/23/24 15:08 Disease Does patient have nerve No 09/23/24 15:08 stimulator Patient instructed to have device shut off --Does patient have Pacemaker No 09/23/24 15:08 or ICD? When Was Last Pacemaker Check QUESTION #4 FULL TEXT: You/Your Family Experience fever (hyperthermia) with Anesthesia Last Oral Intake Last Oral intake: Last Oral Intake NPO since 11:30 09/23/24 15:08 Meds taken in AM with sips of water? Meds patient instructed to take am of surgery Any additional information?: Yes NPO since: 11:30 (Patient finished the last of her prep at 11:30 AM.) Meds taken in AM with sips of water?: Yes PONV PONV - public space attendant: PONV - public space attendant Female Yes 09/23/24 15:08 HX of Motion Sickness No 09/23/24 15:08 HX of N/V After Surgery Yes 09/23/24 15:08 Non-Smoker Yes 09/23/24 15:08 Duration of Surgery greater No 09/23/24 15:08 than 60 minutes Number of Risk Factors 3 09/23/24 15:08 PONV Score Moderate Risk 09/23/24 15:08 Height & Weight Height & Weight: Anesthesia: Height & Weight Height 5 ft 1 in 09/23/24 15:08 Weight: 86.636 kg 09/23/24 15:08 Body Mass Index (BMI) 36.1 09/23/24 15:08 Respiratory Assessment Respiratory Assessment - public space attendant: Respiratory Tract Infection Hx - public space attendant Hx Respiratory Tract Infection No 09/23/24 15:08 STOP Sleep Apnea STOP Sleep Apnea - public space attendant: STOP Sleep Apnea - public space attendant Hx Hypertension Yes 09/23/24 15:08 Hx Sleep Apnea No 09/23/24 15:08 CPAP No 10/31/13 12:26 BIPAP No 10/31/13 12:26 Do you snore loudly (louder No 09/23/24 15:08 than talking or can be heard Do you often feel tired/ No 09/23/24 15:08 fatigued/ sleepy during daytime? Has anyone observed you stop No 09/23/24 15:08 breathing during sleep? STOP Results Negative 09/23/24 15:08 QUESTION #5 FULL TEXT : Do you snore loudly (louder than talking or can be heard through closed doors)? Tobacco Use History Tobacco Use History - public space attendant: Tobacco Use History - public space attendant Tobacco Use Smoking Status Former smoker 09/23/24 15:08 Hx Tobacco Use No 09/23/24 15:08 Years Smoking Packs Smoked per Day Smoking Cessation Date was Yes - quit smoking within 15 09/23/24 15:08 within the last 15 years years Hx Smoking Cessation Date Hx Smoking Cessation Counseling Hematologic Medial History Hematologic Hx - public space attendant: Hematologic Medical Hx - pediatric speech language pathologist Hx of Blood Transfusion No 09/23/24 15:08 Hx of Transfusion in last 3 No 09/23/24 15:08 Months Date of Last Transfusion (if within last 3 months) Ever experience any problems No 09/23/24 15:08 with transfusion(s)? Specify any problems Hx of Preganancy in last 3 No 09/23/24 15:08 Months Nurse Filling Out Transfusion KNAPOLKACY 09/23/24 15:08 & Questions: Date: 09/23/24 09/23/24 15:08 Time: 15:12 09/23/24 15:08 Patient unable to answer at this time (ie. confused, unrespo /Reproduction History /Reproductive History - public space attendant: /Reproductive Hx- public space attendant Hx Now Gestational Age (in weeks): EDC: Hx Hx Para Hx Section SAB No 09/21/21 14:21 PFSH Medical History Lichen sclerosus Hypothyroidism Non-ischemic cardiomyopathy Chronic systolic heart failure Essential (primary) hypertension Lichen sclerosus et atrophicus Cystocele and rectocele with incomplete uterovaginal prolapse Osteoarthritis Vision problems Kidney stones IBS (irritable bowel syndrome) Hearing loss Depression Anxiety Breast lump in female DVT (deep venous thrombosis) Back problem Arthritis Seasonal allergies Hyperlipemia Body mass index (BMI) 35 or more Obesity Home Medications ?Medication ?Instructions ?Recorded ?Last Taken ?Type levothyroxine 100 mcg tablet 100 mcg PO DAILY 10/31/13 07/17/16 History ramipril 10 mg capsule 10 mg PO DAILY 10/31/13 09/23/24 History multivitamin with folic acid 400 1 tab PO DAILY 07/14/16 Unknown History mcg tablet Curt Move Free Ultra PO DAILY 05/13/19 Unknown History cranberry concentrate-ascorbic 2 cap PO .qday PRN uti 05/18/20 Unknown History acid 4,200 mg-20 mg capsule lactobacillus combination no.8 3 3,000 mmu cells PO DAILY 08/30/20 Unknown History billion cell capsule (Adult Probiotic) calcium 250 mg (as 1 tab PO DAILY 11/16/20 Unknown History citrate)-vitamin D3 5 mcg (200 unit) tablet (Citracal Regular) clobetasol 0.05 % topical ointment 1 applic topical QHS PRN itching 01/19/23 Unknown Rx #30 grams carvedilol 6.25 mg tablet 6.25 mg PO BID #180 TABLETS 07/18/24 09/23/24 07:00 Rx Allergy/AdvReac Type Severity Reaction Status Date / Time Penicillins Allergy Anaphylaxis Verified 09/23/24 15:04 shrimp Allergy Unknown Verified 09/23/24 15:04 procaine (From Novocain) AdvReac Severe / Verified 09/23/24 15:04 amoxicillin AdvReac Intermediate / Verified 09/23/24 15:04 Family History Mother Breast cancer CAD (coronary artery disease) Brother Asthma Heart disease Bronchitis Father Parkinsons disease Sister Breast cancer Heart disease Daughter Anxiety Son COPD (chronic obstructive pulmonary disease) Alcoholism Other Family history of alcohol abuse Surgical History History of left heart catheterization (07/17/16) Hx of breast lump removal H/O laminectomy H/O bilateral hip replacements History of bilateral knee replacement S/P excision of White's neuroma History of bladder suspension procedure History of hysterectomy H/O umbilical hernia repair History of appendectomy H/O adenoidectomy History of tonsillectomy H/O tubal ligation Cataracts, bilateral Social History Smoking Status: Former smoker quit date: 09/16/71 how long ago did patient quit smokin second hand exposure: No alcohol intake: current alcohol intake frequency: a few times a week Alcohol type: wine substance use type: does not use caffeine: Yes Type: coffee Number of servings: 3 what type of physical activity do you participate in: none seatbelt use: always do you feel safe at home: Yes Review of Systems (Anesthesia) ROS Narrative System reviewed and no additional complaints, except as documented.
[2024-09-23 15:48] VITALS: BP 155/79; PULSE 70; RESP 16; TEMP 36.6; O2SAT 97
[2024-09-23 16:13] VITALS: BP 144/73; BP 155/79; PULSE 62; RESP 16; TEMP 37.2; O2SAT 97
--- NOTE | 2024-09-23 16:14 | PCM.POST.ANE ---
Anesthesia: Postop Eval I Current Vital Signs Temperature: 98.9 F Pulse Rate: 62 Blood Pressure: 144/73 Respiratory Rate: 16 Pulse Ox: 97 Oxygen Delivery Method: Room Air Assessment Airway patent: Yes Spontaneous unlabored respirations: Yes Mental status: Awake and Calm nausea: No Vomiting: No Anesthesia Complication: No Fluid Hydration Crystalloid volume administer (ml): 10 Total IV fluid infused: 10 Progress Note Anesthesia document: Postop Eval 1 completed: Yes
[2024-09-23 16:15] VITALS: BP 141/78; BP 144/73; BP 155/79; PULSE 62; PULSE 64; RESP 16; TEMP 37.2; O2SAT 97
--- NOTE | 2024-09-23 16:15 | OP.EGD_ITS ---
Patient Name: Dolly Stewart Procedure Date: 09/23/2024 3:49 PM Date of : 1935 Age: 88 Procedure: Upper GI endoscopy Indications: Epigastric abdominal pain, Functional Dyspepsia, Failure to respond to medical treatment Providers: Radhames Casillas DO Medicines: Monitored Anesthesia Care Patient Profile: This is an 88 year old female. Refer to note in patient chart for documentation of history and physical. Patient has symptoms of chronic abdominal cramping, chronic epigastric abdominal pain, chronic dyspepsia and chronic nausea. Complications: No immediate complications. Procedure: Pre-Anesthesia Assessment: - Prior to the procedure, a History and Physical was performed, and patient medications and allergies were reviewed. The patient is competent. The risks and benefits of the procedure and the sedation options and risks were discussed with the patient. All questions were answered and informed consent was obtained. Patient identification and proposed procedure were verified by the physician in the pre-procedure area. Mental Status Examination: alert and oriented. Airway Examination: normal oropharyngeal airway and neck mobility. Respiratory Examination: clear to auscultation. CV Examination: normal. Prophylactic Antibiotics: The patient does not require prophylactic antibiotics. Prior Anticoagulants: The patient has taken no anticoagulant or antiplatelet agents except for aspirin. ASA Grade Assessment: II - A patient with mild systemic disease. After reviewing the risks and benefits, the patient was deemed in satisfactory condition to undergo the procedure. The anesthesia plan was to use monitored anesthesia care (MAC). Immediately prior to administration of medications, the patient was re-assessed for adequacy to receive sedatives. The heart rate, respiratory rate, oxygen saturations, blood pressure, adequacy of pulmonary ventilation, and response to care were monitored throughout the procedure. The physical status of the patient was re-assessed after the procedure. After obtaining informed consent, the endoscope was passed under direct vision. Throughout the procedure, the patient's blood pressure, pulse, and oxygen saturations were monitored continuously. The pediatric colonoscope was introduced through the mouth, and advanced to the second part of duodenum. The upper GI endoscopy was accomplished without difficulty. The patient tolerated the procedure well. Scope In: 3:53:08 PM Scope Out: 3:55:47 PM Total Procedure Duration Time 0 hours 2 minutes 39 seconds Findings: The examined esophagus was normal. There was a medium-sized lipoma, 9 mm in diameter, in the gastric body. Biopsies were taken with a cold forceps for histology. Multiple 4 mm hyperplastic polyps with no bleeding and no stigmata of recent bleeding were found in the cardia, in the gastric fundus and in the gastric body. No gross lesions were noted in the first portion of the duodenum. Impression: - Normal esophagus. - Gastric lipoma. Biopsied. - Multiple gastric polyps. - No gross lesions in the first portion of the duodenum. Recommendation: - Await pathology results. - Await pathology results. - Continue present medications. Procedure Code(s): --- Professional --- 92082, Esophagogastroduodenoscopy, flexible, transoral; with biopsy, single or multiple CPT copyright 2021 [employer]. All rights reserved. The codes documented in this report are preliminary and upon stitch rubber review may be revised to meet current compliance requirements. Radhames Casillas DO 09/23/2024 4:15:29 PM This report has been signed electronically. Number of Addenda: 0 Note Initiated On: 09/23/2024 3:49 PM
--- NOTE | 2024-09-23 16:16 | OP.CCLET_ITS ---
09/23/2024 [place] Az[facility] Re : Upper GI endoscopy procedure for Dolly Stewart Dear Alhaji This procedure was performed on Monday, September 23, 2024. My impressions and recommendations are as follows: Impressions : - Normal esophagus. - Gastric lipoma. Biopsied. - Multiple gastric polyps. - No gross lesions in the first portion of the duodenum. Recommendations : - Await pathology results. - Await pathology results. - Continue present medications. My findings are described in the full procedure note, which is enclosed. If I can be of further assistance, please feel free to contact me at . Sincerely, Radhames Casillas, 09/23/2024 4:15:29 PM This report has been signed electronically.
--- NOTE | 2024-09-23 16:19 | OP.COLON_ITS ---
Patient Name: Dolly Stewart Procedure Date: 09/23/2024 3:40 PM Date of : 1935 Age: 88 Procedure: Colonoscopy Indications: Chronic diarrhea, Clinically significant diarrhea of unexplained origin, Functional diarrhea Providers: Radhames Casillas DO Medicines: Monitored Anesthesia Care Patient Profile: This is an 88 year old female. Refer to note in patient chart for documentation of history and physical. Last Colonoscopy: 5 years ago. Complications: No immediate complications. Procedure: Pre-Anesthesia Assessment: - Prior to the procedure, a History and Physical was performed, and patient medications and allergies were reviewed. The patient is competent. The risks and benefits of the procedure and the sedation options and risks were discussed with the patient. All questions were answered and informed consent was obtained. Patient identification and proposed procedure were verified by the physician in the pre-procedure area. Mental Status Examination: alert and oriented. Airway Examination: normal oropharyngeal airway and neck mobility. Respiratory Examination: clear to auscultation. CV Examination: normal. ASA Grade Assessment: II - A patient with mild systemic disease. After reviewing the risks and benefits, the patient was deemed in satisfactory condition to undergo the procedure. The anesthesia plan was to use moderate sedation / analgesia (conscious sedation). Immediately prior to administration of medications, the patient was re-assessed for adequacy to receive sedatives. The heart rate, respiratory rate, oxygen saturations, blood pressure, adequacy of pulmonary ventilation, and response to care were monitored throughout the procedure. The physical status of the patient was re-assessed after the procedure. After I obtained informed consent, the scope was passed under direct vision. Throughout the procedure, the patient's blood pressure, pulse, and oxygen saturations were monitored continuously. The pediatric colonoscope was introduced through the anus and advanced to the cecum, identified by appendiceal orifice and ileocecal valve. The colonoscopy was performed without difficulty. The patient tolerated the procedure well. The quality of the bowel preparation was adequate. The ileocecal valve, appendiceal orifice, and rectum were photographed. Scope In: 3:57:24 PM Scope Withdrawal Time 0 hours 8 minutes 50 seconds Scope Out: 4:09:38 PM Total Procedure Duration Time 0 hours 12 minutes 14 seconds Findings: The perianal and digital rectal examinations were normal. Hemorrhoids were found on perianal exam. Non-bleeding external and internal hemorrhoids were found during retroflexion. The hemorrhoids were Grade III (internal hemorrhoids that prolapse but require manual reduction). Multiple small-mouthed diverticula were found in the recto-sigmoid colon, sigmoid colon and hepatic flexure. An area of mildly congested mucosa was found in the sigmoid colon, in the transverse colon and in the ascending colon. Biopsies were taken with a cold forceps for histology. Verification of patient identification for the specimen was done. Estimated blood loss was minimal. An 8 mm polyp was found in the cecum. The polyp was sessile. The polyp was removed with a jumbo cold forceps. Resection and retrieval were complete. Verification of patient identification for the specimen was done. Estimated blood loss was minimal. Impression: - Hemorrhoids found on perianal exam. - Non-bleeding external and internal hemorrhoids. - Diverticulosis in the recto-sigmoid colon, in the sigmoid colon and at the hepatic flexure. - Congested mucosa in the sigmoid colon, in the transverse colon and in the ascending colon. Biopsied. - One 8 mm polyp in the cecum, removed with a jumbo cold forceps. Resected and retrieved. Recommendation: - No recommendation at this time regarding repeat colonoscopy due to age. - Continue present medications. Procedure Code(s): --- Professional --- 56373, Colonoscopy, flexible; with biopsy, single or multiple CPT copyright 2021 [employer]. All rights reserved. The codes documented in this report are preliminary and upon machine technician review may be revised to meet current compliance requirements. Radhames Casillas DO 09/23/2024 4:18:44 PM This report has been signed electronically. Number of Addenda: 0 Note Initiated On: 09/23/2024 3:40 PM
--- NOTE | 2024-09-23 16:19 | OP.CCLET_ITS ---
09/23/2024 [place] Azar Re : Colonoscopy procedure for Dolly Stewart Dear Alhaji This procedure was performed on Monday, September 23, 2024. My impressions and recommendations are as follows: Impressions : - Hemorrhoids found on perianal exam. - Non-bleeding external and internal hemorrhoids. - Diverticulosis in the recto-sigmoid colon, in the sigmoid colon and at the hepatic flexure. - Congested mucosa in the sigmoid colon, in the transverse colon and in the ascending colon. Biopsied. - One 8 mm polyp in the cecum, removed with a jumbo cold forceps. Resected and retrieved. Recommendations : - No recommendation at this time regarding repeat colonoscopy due to age. - Continue present medications. My findings are described in the full procedure note, which is enclosed. If I can be of further assistance, please feel free to contact me at . Sincerely, Radhames Casillas, 09/23/2024 4:18:44 PM This report has been signed electronically.
[2024-09-23 16:23] VITALS: BP 155/79; BP 162/87; PULSE 59; RESP 16; TEMP 37.2; O2SAT 98
[2024-09-23 16:48] VITALS: BP 155/79
--- NOTE | 2024-09-23 17:10 | POSTOPAN2_ITS ---
Anesthesia Postop Eval I Sum Postop Eval Completion status Anesthesia document: Postop Eval 1 completed: Yes Anesthesia Postop Eval I Summary Anesthesia Postop Eval I Summary: Anesthesia Postop Eval I: Assessment Summary Airway patent Yes 09/23/24 16:15 AOC AADC OPERATIONS STAFF OFFICER.SKOBY Spontaneous unlabored Yes 09/23/24 16:15 AOC [employer]ADC OPERATIONS STAFF OFFICER.HARJINDER respirations Mental status Awake,Calm 09/23/24 16:15 AOC AADC OPERATIONS STAFF OFFICER.LALOOBVadim nausea No 09/23/24 16:15 AOC AADC OPERATIONS STAFF OFFICER.LALOOBVadim Vomiting No 09/23/24 16:15 AOC AADC OPERATIONS STAFF OFFICER.LALOOBVadim Anesthesia Postop Eval I: Fluid Summary Crystalloid volume administer 10 09/23/24 16:15 AOC AADC OPERATIONS STAFF OFFICER.LALOOBY (ml) Colloids volume administered ( ml) Blood Product volume administered (ml) Total IV fluid infused 10 09/23/24 16:15 AOC [employer]ADC OPERATIONS STAFF OFFICER.HARJINDER Anesthesia Postop Eval I: Summary Notes Anesthesia Complication No 09/23/24 16:15 AOC AADC OPERATIONS STAFF OFFICER.HARJINDER Anesthesia Complication Comment: Post-operative progress note Anesthesia: Postop Eval II Evaluation Mental status: Awake and Calm Pain Level: 0 nausea: No Vomiting: No Complications Anesthesia Complication: No
--- NOTE | 2024-09-23 17:10 | PCM.POSTANE2 ---
Anesthesia Postop Eval I Sum Postop Eval Completion status Anesthesia document: Postop Eval 1 completed: Yes Anesthesia Postop Eval I Summary Anesthesia Postop Eval I Summary: Anesthesia Postop Eval I: Assessment Summary Airway patent Yes 09/23/24 16:15 LABORATORY VETERINARIAN.SKOBY Spontaneous unlabored Yes 09/23/24 16:15 LABORATORY VETERINARIAN.HARJINDER respirations Mental status Awake,Calm 09/23/24 16:15 LABORATORY VETERINARIAN.LALOOBVadim nausea No 09/23/24 16:15 LABORATORY VETERINARIAN.LALOOBVadim Vomiting No 09/23/24 16:15 LABORATORY VETERINARIAN.LALOOBVadim Anesthesia Postop Eval I: Fluid Summary Crystalloid volume administer 10 09/23/24 16:15 LABORATORY VETERINARIAN.LALOOBY (ml) Colloids volume administered ( ml) Blood Product volume administered (ml) Total IV fluid infused 10 09/23/24 16:15 LABORATORY VETERINARIAN.HARJINDER Anesthesia Postop Eval I: Summary Notes Anesthesia Complication No 09/23/24 16:15 LABORATORY VETERINARIAN.HARJINDER Anesthesia Complication Comment: Post-operative progress note Anesthesia: Postop Eval II Evaluation Mental status: Awake and Calm Pain Level: 0 nausea: No Vomiting: No Complications Anesthesia Complication: No
== END 2024-09-23 17:21 | disposition home or self-care (01) ==
LOC: EN 14:43 → AC 14:44
PROVIDERS: PCP Nurse Practitioner Family; Referring Provider Nurse Practitioner Family; Visit Provider Internal Medicine Gastroenterology
PROC: 0DJD8ZZ Inspection of Lower Intestinal Tract, Via Natural or Artificial Opening Endoscopic (ICD-10-PCS; CPT 45378; principal; 2024-09-23 15:25)
DX: K29.70 Gastritis, unspecified, without bleeding (principal); I11.0 Hypertensive heart disease with heart failure; I50.22 Chronic systolic (congestive) heart failure; K57.30 Diverticulosis of large intestine without perforation or abscess without bleeding; K52.9 Noninfective gastroenteritis and colitis, unspecified; Z87.891 Personal history of nicotine dependence; K31.7 Polyp of stomach and duodenum; E78.5 Hyperlipidemia, unspecified; K63.5 Polyp of colon; Z79.899 Other long term (current) drug therapy; K64.2 Third degree hemorrhoids; K64.4 Residual hemorrhoidal skin tags; D17.5 Benign lipomatous neoplasm of intra-abdominal organs; D12.0 Benign neoplasm of cecum
CPT/HCPCS: 45380; 43239; 88305; 88342; A4216

== ENCOUNTER → 2024-10-02 | Outpatient (CLI) | payer MEDICARE, OTHER, SELFPAY ==
--- NOTE | 2024-10-02 14:33 | CT_ITS ---
STUDY: CT ABDOMEN AND PELVIS WITH CONTRAST REASON FOR EXAM: Female, 88 years old. Diarrhea RADIATION DOSAGE (If Supplied By Facility): CTDIvol = ( 18.82 ) mGy, DLP = ( 959.42 ) mGycm TECHNIQUE: Transaxial images were obtained from the dome of the diaphragm to the symphysis pubis with oral contrast. Oral and amp; IV Readi-CAT and amp; 100mL Isovue-370 was administered. Sagittal and coronal images were reconstructed. Individualized dose optimization techniques were used for this CT. COMPARISON: None. FINDINGS: The visualized lung bases are unremarkable. Coronary artery calcification. There is decreased attenuation of the liver consistent with steatosis. Normal gallbladder and extrahepatic biliary system. Normal spleen. Normal pancreas. Normal bilateral adrenal glands. There is a 1.6 cm cyst in the medial upper pole of the right kidney. There is also evidence of a 1.2 cm cyst in the inferior lateral aspect of the right kidney. Normal left kidney. There is a small hiatal hernia. Normal small intestine. There are multiple colonic diverticula consistent with diverticulosis. The patient is status post appendectomy. There is diffuse atherosclerotic calcification of the abdominal aorta and its major visceral branches., without a demonstrated aneurysm. Normal inferior vena cava. Normal retroperitoneum. Normal urinary bladder. Prior hysterectomy. Normal abdominal wall. There are diffuse degenerative changes of the visualized lumbar spine. Prior intraventricular screw and megan fixation at the L3-L4 and L4-L5 levels. Anterior listhesis of L4 on L5. 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 CT/Abdomen/Pelvis WITH Contrast IMPRESSION: Fatty infiltration of the liver. Right renal cysts. Sigmoid diverticulosis. Electronically Signed: Hari Gomez MD at 15:07 EST ,
[2024-10-02 15:07] LABS: Erythrocyte Sedimentation Rate 16 mm/hr (0-30)
[2024-10-02 15:19] LABS: Vitamin B12 689 pg/mL (211-911)
[2024-10-02 15:54] LABS: CRP 4.27 mg/L (0.0-3.0); LDH 192 U/L (84-246)
[2024-10-07 10:07] LABS: Beef <0.10 kU/L (Class 0); Chocolate <0.10 kU/L (Class 0); Codfish <0.10 kU/L (Class 0); Corn <0.10 kU/L (Class 0); Egg, Whole <0.10 kU/L (Class 0); Milk (Cow) <0.10 kU/L (Class 0); Mussels <0.10 kU/L (Class 0); Peanut <0.10 kU/L (Class 0); Pork <0.10 kU/L (Class 0); Salmon <0.10 kU/L (Class 0); Shrimp <0.10 kU/L (Class 0); Soybean <0.10 kU/L (Class 0); Tuna <0.10 kU/L (Class 0); Wheat <0.10 kU/L (Class 0)
== END | disposition home or self-care (01) ==
LOC: CT 14:03
PROVIDERS: PCP Nurse Practitioner Family; Referring Provider Internal Medicine Gastroenterology; Visit Provider Internal Medicine Gastroenterology
DX: K59.00 Constipation, unspecified (principal); R19.7 Diarrhea, unspecified
CPT/HCPCS: 36415; 74177; 82607; 82746; 82784; 82785; 82941; 83516; 83615; 84165; 85652; 86003; 86005; 86036; 86140; 86334; 86671; Q9967

== ENCOUNTER → 2024-10-09 | Outpatient (CLI) | payer MEDICARE, OTHER, SELFPAY ==
[2024-10-13 03:06] LABS: Pancreatic Elastase, Fecal 125 (>200)
[2024-10-15 08:09] LABS: Calprotectin, Stool 29 ug/g (0-120); Fats, Neutral Normal (.); Fats, Total Normal (.)
== END | disposition home or self-care (01) ==
LOC: LAB 14:11 → LABSPEC 14:12
PROVIDERS: PCP Nurse Practitioner Family; Referring Provider Internal Medicine Gastroenterology; Visit Provider Internal Medicine Gastroenterology
DX: K59.00 Constipation, unspecified (principal); K58.9 Irritable bowel syndrome, unspecified; R19.7 Diarrhea, unspecified
CPT/HCPCS: 82274; 82653; 82705; 83630; 83993; 87177; 87209; 87329; 87493; 87506

== ENCOUNTER → 2025-06-11 | Outpatient (CLI) | payer MEDICARE, OTHER, SELFPAY ==
--- NOTE | 2025-06-11 17:03 | RAD_ITS ---
PROCEDURE: ABDOMEN SINGLE VIEW 06/11/2025 REASON FOR EXAM: CONSTIPATION TECHNIQUE: Procedure Code: RADABD Modality: DX Procedure: ABDOMEN SINGLE VIEW COMPARISON: CT abdomen and pelvis dated 10/02/2024 FINDINGS: Bowel gas: A moderate to large amount of stool and gas is present throughout a mildly distended colon. The ascending colon near the cecum measures 6.5 cm. Mildly dilated gas-filled loops of small bowel are noted. No free air is seen. Psoas muscles and renal outlines are partially obscured by overlying bowel gas and fecal material within colon. No gross organomegaly is seen. Calcifications: No abnormal calcific densities are seen in the region of the kidneys or ureters to suggest stone. Please note however that small stones could be obscured by the fecal material within the colon. Bones: Radiopaque hardware is projected over the lower lumbar spine. There is no fracture or loosening of the radiopaque hardware. Bilateral prosthetic hip devices are noted. The visualized radiopaque hardware appears to be intact without evidence fracture or loosening. Please note that the most distal components of the prosthetic hip devices is not included on this study. Other: Soft tissues appear grossly unremarkable. RAD/Abdomen Single View IMPRESSION: The patient appears to be constipated. Small-bowel and colonic ileus without evidence of obstruction. RECOMMENDATION: If the patient's symptoms continue or worsen follow-up imaging is recommended. Reading Location: [id number]
--- OUTSIDE RECORDS SUMMARY | 2025-06-11 17:39 | XMS RPT_ITS | CCD ---
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 Seb Cohen Primary Care Provider [phone] Dr. Seb Cohen Referring Provider Dr. Glenis Pena Attending Provider Dr. Krunal Garcia Attending Provider Alhaji, Yoli Primary Care Unavailable Friend, Radhames Referring Unavailable Friend, Radhames Attending Unavailable Friend, Radhames Referring Unavailable Friend, Radhames Attending Unavailable Alhaji, Yoli Primary Care Unavailable Alhaji, Yoli Primary Care Unavailable Alhaji, Yoli Attending Unavailable Alhaji, Yoli Referring Unavailable Alhaji, Yoli Primary Care Unavailable Alhaji, Yoli Attending Unavailable Alhaji, Yoli Referring Unavailable Alhaji, Yoli Primary Care Unavailable Alhaji, Yoli Attending Unavailable Alhaji, Yoli Referring Unavailable Friend, Radhames Attending Unavailable Alhaji, Yoli Referring Unavailable Alhaji, Yoli Primary Care Unavailable Alhaji, Yoli Primary Care Unavailable Friend, Radhames Attending Unavailable Alhaji, Yoli Primary Care Unavailable Friend, Radhames Attending Unavailable Alhaji, Yoli Referring Unavailable Alhaji, Yoli Primary Care Unavailable Roof Golden MCDANIEL Attending Unavailable Alhaji, Yoli Referring Unavailable Friend, Radhames Consulting Unavailable Friend, Radhames Attending Unavailable Alhaji, Yoli Referring Unavailable Alhaji, Yoli Primary Care Unavailable Friend, Radhames Attending Unavailable Alhaji, Yoli Primary Care Unavailable Allergies Allergy Classification Reported Allergen(s) Allergy Type Date of Onset Reaction(s) Facility (2 sources) amoxicillin Drug Allergy 7 neck to bottom of chin red, / [facility] Work Phone: (1 source) penicillin Drug Allergy 6 Severe Itching hives on neck [facility] Work Phone: (1 source) shrimp, unspecified; Translations: [SHRIMP] food allergy 6 Severe vomiting [facility] Work Phone: (1 source) NOVOCAIN drug allergy 6 Severe redness and itching. [facility] Work Phone: (1 source) Penicillins Allergy to substance [address] [facility] (1 source) Procaine Drug Allergy 3 / [facility] (1 source) shrimp allergenic extract Drug Allergy [address] [facility] (1 source) Amoxicillin Drug Allergy [address] [facility] Rep[facility] (1 source) Penicillins Drug allergy (disorder) [address] [facility] (1 source) Procaine Drug Allergy [address] [facility] (1 source) Shrimp product Drug allergy (disorder) [address] [facility] Repository Medications Current Medications Medication Drug Class(es) Dates Sig (Normalized) Sig (Original) Cranberry Conc-Ascorbic Acid (2 sources) Non-Standardized Food Allergenic Extract, Non-Standardized Plant Allergenic Extract, Vitamin C Start: 05-18-2020 Cranberry Conc-Ascorbic Acid Active CAP PO May 18, 2020 2:04pm Start: 05-13-2019 End: 05-18-2020 Cranberry Conc-Ascorbic Acid Discontinued CAP PO May 13, 2019 12:00am May 18, 2020 2:04pm calcium citrate 1190 mg / cholecalciferol 0.005 mg oral tablet (1 source) Vitamin D Start: 11-16-2020 take 1 tablet by mouth once daily calcium citrate 250 mg calcium-vitamin D3 5 mcg (200 unit) tablet Active 1 TABLET PO DAILY November 16, 2020 1:00am carvedilol 6.25 mg oral tablet (10 sources) alpha-Adrenerg ic Swapna, beta-Adrenergi c Swapna Start: 05-18-2020 End: 06-26-2022 take 1 tablet by mouth twice daily Carvedilol Active 0 .ROUTE .COMPLEX 180 June 26, 2022 11:39am TAKE 1 TABLET BY MOUTH TWICE A DAY Start: 10-29-2017 End: 05-18-2020 take 3.125 mg by mouth twice daily Carvedilol Discontinued 3.125 MG PO TWICE A DAY 60 December 19, 2019 2:02pm May 18, 2020 2:38pm Start: 07-17-2016 take 1 tablet by julieta th twice daily at mealtime CARVEDILOL 3.125 MG TABS One tablet by mouth twice daily with food CARVEDILOL [id number] Patricia Gerri Collazo clobetasol propionate 0.0005 mg/mg topical ointment (5 sources) Corticosteroid Start: 08-25-2019 End: 01-19-2023 Clobetasol Active 1 APPLIC TOPICAL AT BEDTIME January 19, 2023 12:04pm Start: 07-09-2018 End: 05-13-2019 Clobetasol Discontinued 1 AP PLIC TOPICAL AT BEDTIME July 09, 2018 12:00am May 13, 2019 1:16pm apply thin layer; massage gently into affected area nightly x 6 weeks then 1-2x weekly diphenhydrAMINE (3 sources) Histamine-1 Receptor Antagonist Start: 07-12-2022 take 1 capsule by mouth once daily Nervine Active 1 CAP PO DAILY July 12, 2022 12:00am Start: 07-06-2016 End: 05-01-2017 take 1 tablet by mouth once daily at bedtime BENADRYL DYE-FREE ALLERGY 25 MG CAPS One tablet by mouth daily at bedtime on 07/15/16 and 07/16/16 for heart cath on 07/17/16 DIPHENHYDRAMINE HCL [id number] Jose Francisco Parkinson MD Lactobacillus Combination No.8 (Adult Probiotic) 3 billion cell capsule (1 source) Start: 08-30-2020 take 3 capsules by mouth once daily Lactobacillus Combination No.8 (Adult Probiotic) 3 billion cell capsule Active 3000 MMU CELLS PO DAILY August 30, 2020 1:00am administer with a meal Multivitamin With Folic Acid (1 source) Start: 07-14-2016 take 1 tablet by mouth once daily Multivitamin With Folic Acid Active 1 TABLET PO DAILY July 14, 2016 12:00am polyethylene glycol 3350 36327 mg powder for oral solution (3 sources) Osmotic Laxative Start: 11-16-2020 Polyethylene Glycol 3350 (Miralax) 17 gram/dose powder Active 17 GM PO DAILY November 16, 2020 2:20pm Start: 05-13-2019 End: 11-16-2020 Polyethylene Glycol 3350 (Mi ralax) 17 gram/dose powder Discontinued 8.5 GM PO DAILY May 13, 2019 12:00am November 16, 2020 2:21pm Start: 10-31-2013 End: 08-20-2018 take 17 g by mouth once daily Polyethylene Glycol 3350 Discontinued 17 GM PO DAILY October 31, 2013 1:00am August 20, 2018 2:21pm Katie Move Free Ultra (1 source) Start: 05-13-2019 Katie Move Fr ee Ultra Active PO DAILY May 13, 2019 12:00am Completed/Discontinued Medications Medication Drug Class(es) Dates Sig (Normalized) Sig (Original) acetaminophen 325 mg oral tablet (1 source) Start: 10-31-2013 End: 11-06-2013 take 325-650 mg by mouth every six hours as needed Acetaminophen (Tylenol) 325 MG tablet Discontinued 325 - 650 MG PO EVERY 6 HOURS NEEDED October 31, 2013 1:00am November 06, 2013 12:50pm acetaminophen 325 mg / oxyCODONE hydrochloride 5 mg oral tablet (1 source) Opioid Agonist Start: 10-31-2013 End: 11-06-2013 take 1 tablet by mouth every four hours as needed Oxycodone-Acetamino phen Discontinued 1 - 2 TABLET PO EVERY 4 HOURS NEEDED October 31, 2013 1:00am November 06, 2013 12:48pm Cranberry Conc-Ascorbic Acid (1 source) Non-Standardized Food Allergenic Extract, Non-Standardized Plant Allergenic Extract, Vitamin C Start: 07-14-2016 End: 08-20-2018 Cranberry Conc-Ascorbic Acid Discontinued 1 EACH PO DAILY July 14, 2016 12:00am August 20, 2018 2:21pm Ca Carb-D3-Mag Tk-Vys-Zbyn-Zn (Caltrate + D3 Plus Minerals) 300 mg-800 unit -25 mg-0.5 mg tablet (1 source) Start: 05-13-2019 End: 11-16-2020 take 1 tablet by mouth once daily Ca Carb-D3-Mag Yf-Imi-Cahj-Zn (Caltrate + D3 Plus Minerals) 300 mg-800 unit -25 mg-0.5 mg tablet Discontinued 1 TABLET PO DAILY May 13, 2019 12:00am November 16, 2020 2:20pm CALCIUM CITRATE-VITAMIN D TABS (1 source) Start: 05-16-2016 take 1 tablet by mouth once daily CITRACAL MAXIMUM TABS One tablet by mouth daily CALCIUM CITRATE-VITAMIN D TABS [id number] Jose Francisco Parkinson MD citalopram 20 mg oral tablet (1 source) Serotonin Reuptake Inhibitor Start: 09-21-2021 End: 01-19-2023 take 1 tablet by mouth once daily Citalopram (Celexa) 20 mg tablet Discontinued 20 MG PO DAILY September 21, 2021 1:00am January 19, 2023 11:44am cranberry preparation (3 sources) Non-Standardized Food Allergenic Extract, Non-Standardized Plant Allergenic Extract Start: 06-01-2017 take 2 tablets by mouth once daily CRANBERRY CONCENTRATE CAPS Two tablets by mouth daily CRANBERRY CAPS [id number] Patricia Collazo Start: 05-16-2016 take 1 tablet by julieta th once daily CRANBERRY CONCENTRATE CAPS One tablet by mouth daily CRANBERRY CAPS [id number] Sandra Mondragon RN Start: 05-16-2016 take 1 tablet by julieta th once daily as needed CRANBERRY CONCENTRATE CAPS One tablet by mouth daily as needed CRANBERRY CAPS [id number] Jose Francisco Parkinson MD escitalopram 20 mg oral tablet (3 sources) Serotonin Reuptake Inhibitor Start: 11-01-2017 End: 05-13-2019 Escitalopram Oxalate Discontinued PO 90 90 November 01, 2017 1:00am May 13, 2019 1:17pm Start: 10-29-2017 End: 08-20-2018 take 10 mg by mouth once daily Escitalopram Oxalate Di scontinued 10 MG PO daily October 29, 2017 1:00am August 20, 2018 2:21pm Start: 07-16-2017 take 1 tablet by julieta th once daily LEXAPRO 10 MG TABS One tablet by mouth daily ESCITALOPRAM OXALATE [id number] Katelynn Hearn Ac-Chond Sul-Colg Ii-Aa (1 source) Start: 07-14-2016 End: 08-20-2018 Hyalur Ac-Chond Sul-Colg Ii-Aa Discontinued 1 EACH PO DAILY July 14, 2016 12:00am August 20, 2018 2:21pm hyaluronate (2 sources) Start: 05-16-2016 take 1 tablet by mouth once daily HYALURONIC ACID CAPS One tablet by mouth daily [id number] C ACID CAPS [id number] Sandra Mondragon RN Start: 05-16-2016 End: 06-07-2017 take 1 tablet by mouth once daily HYALURONIC ACID CAPS One tablet by mouth daily [id number] ACID CAPS [id number] Patricia Talley Zay hydroCHLOROthiazide 25 mg oral tablet (3 sources) Thiazide Diuretic Start: 10-31-2013 End: 11-01-2017 take 1 tablet by mouth once daily HYDROCHLOROTHIAZIDE 25 MG TABS One tablet by mouth daily HYDROCHLOROTHIAZIDE [id number] Sandra Mondragon RN Lactobacillus Combination No.9 (Adult 50+ Probiotic) 4 billion cell capsule (1 source) Start: 08-25-2019 End: 11-16-2020 take 4 capsules by mouth once daily Lactobacillus Combination No.9 (Adult 50+ Probiotic) 4 billion cell capsule Discontinued 4000 MMU CELLS PO DAILY August 25, 2019 1:00am November 16, 2020 2:21pm meloxicam 7.5 mg oral tablet (2 sources) Nonsteroidal Anti-inflammator y Drug Start: 05-16-2016 End: 06-29-2016 take 1 tablet by mouth once daily MELOXICAM 7.5 MG TABS One tablet by mouth daily MELOXICAM [id number] Sandra Mondragon RN methylcellulose 500 mg oral tablet (2 sources) Start: 05-16-2016 End: 11-01-2017 take 500 mg by mouth once daily Methylcellulose (Laxative) Discontinued 500 MG PO DAILY July 14, 2016 12:00am November 01, 2017 2:36pm MULTIPLE VITAMIN (1 source) Start: 05-16-2016 take 1 tablet by mouth once daily MULTIVITAMINS TABS One tablet by mouth daily MULTIPLE VITAMIN Sandra Mondragon RN naproxen sodium 220 mg oral capsule (1 source) Nonsteroidal Anti-inflammator y Drug Start: 11-01-2017 End: 08-20-2018 take 1 capsule by mouth every twelve hours Naproxen Sodium (Aleve) 220 mg capsule Discontinued 220 MG PO Q12H November 01, 2017 1:00am August 20, 2018 2:21pm omeprazole 20 mg delayed release oral tablet (1 source) Proton Pump Inhibitor Start: 05-13-2019 End: 05-18-2020 take 1 tablet by mouth once daily Omeprazole Magnesium (Prilosec Otc) 20 mg tablet,delayed release (DR/EC) Discontinued 20 MG PO DAILY May 13, 2019 12:00am May 18, 2020 2:03pm PARoxetine hydrochloride 10 mg oral tablet (4 sources) Serotonin Reuptake Inhibitor Start: 06-23-2021 End: 07-12-2022 take 1 tablet by mouth once daily Paroxetine Hcl Discontinued 0 .ROUTE .COMPLEX 90 September 12, 2021 9:20am July 12, 2022 1:47pm TAKE 1 TABLET BY MOUTH ONCE DAILY Start: 11-18-2020 End: 06-23-2021 take 1 tablet by mouth once daily Paroxetine Hcl (Paxil) 20 mg tablet Discontinued 20 MG PO DAILY November 18, 2020 1:00am June 23, 2021 4:10pm Start: 08-30-2020 End: 11-18-2020 take 1 tablet by mouth once daily Paroxetine Hcl (Paxil) 10 mg tablet Discontinued 10 MG PO DAILY August 30, 2020 1:00am November 18, 2020 12:25pm POLYETHYLENE GLYCOL 3350 (2 sources) Start: 05-16-2016 MIRALAX PACK T haim as directed 17 grams daily as needed constipation POLYETHYLENE GLYCOL 3350 [id number] Patricia Collazo Start: 05-16-2016 MIRALAX PACK T haim as directed 17 grams daily POLYETHYLENE GLYCOL 3350 [id number] Sandra Mondragon RN pravastatin sodium 20 mg oral tablet (2 sources) HMG-CoA Reductase Inhibitor Start: 10-31-2013 End: 11-01-2017 take 1 tablet by mouth at bedtime PRAVACHOL 20 MG TABS One tablet by mouth at bedtime. PRAVASTATIN SODIUM [id number] Sandra Mondragon RN predniSONE 20 mg oral tablet (2 sources) Corticosteroid Start: 07-06-2016 End: 05-01-2017 take 1 tablet by mouth in the morning PREDNISONE 20 MG TABS 1 tablet by mouth am of 07/15/16 and am of 07/16/16 for heart cath on 07/17/16 PREDNISONE [id number] Jose Francisco Parkinson MD ramipril 10 mg oral capsule (2 sources) Angiotensin Converting Enzyme Inhibitor Start: 10-31-2013 take 1 tablet by mouth once daily ALTACE 10 MG CAPS One tablet by mouth daily RAMIPRIL [id number] Sandra Mondragon RN KATIE MOVE FREE ULTRA -CARTILEGE BLEND AND HYALAURONIC ACID (1 source) Start: 07-16-2017 take 1 tablet by mouth once daily KATIE MOVE FREE ULTRA -CARTILEGE BLEND AND HYALAURONIC ACID One tablet by mouth daily KATIE MOVE FREE ULTRA -CARTILEGE BLEND AND HYALAURONIC ACID Katelynn Corea sertraline 50 mg oral tablet (3 sources) Serotonin Reuptake Inhibitor Start: 05-16-2016 End: 11-01-2017 take 50 mg by mouth once daily Sertraline Discontinued 50 MG PO DAILY July 14, 2016 12:00am November 01, 2017 2:37pm levothyroxine sodium 0.1 mg oral tablet (2 sources) l-Thyroxine Start: 10-31-2013 take 1 tablet by mouth once daily SYNTHROID 100 MCG TABS One tablet by mouth daily LEVOTHYROXINE SODIUM [id number] Sandra Mondragon RN Problems Active Problems Problem Classification Problem Date Documented Da te Episodic/Chronic Cardiac dysrhythmias (1 source) Ventricular premature depolarization; Translations: [Ventricular premature depolarization] Onset: 06-29-2016 06-29-2016 Chronic Cardiac dysrhythmias (2 sources) Palpitations; Translations: [Palpitations] Onset: 05-24-2016 05-24-2016 Episodic Congestive heart failure; nonhypertensive (2 sources) Heart failure; Translations: [Chronic systolic heart failure] Onset: 07-16-2017 07-16-2017 Chronic Disorders of lipid metabolism (2 sources) Hyperlipidemia; Translations: [Hyperlipidemia, unspecified] Onset: 05-16-2016 05-16-2016 Chronic Essential hypertension (3 sources) Hypertensive disorder; Translations: [Essential hypertension] Onset: 05-16-2016 05-16-2016 Chronic Mood disorders (2 sources) Depressive disorder; Translations: [Depression] 01-19-2023 Chronic Nonspecific chest pain (2 sources) Chest pain; Translations: [Chest pain, unspecified] Onset: 06-29-2016 06-29-2016 Episodic Other gastrointestinal disorders (2 sources) Constipation, unspecified; Translations: [Constipation, unspecified] Onset: 09-24-2024 Episodic Other gastrointestinal disorders (2 sources) Diarrhea, unspecified; Translations: [Diarrhea, unspecified] Onset: 09-29-2024 Episodic Other lower respiratory disease (3 sources) Dyspnea on exertion; Translations: [Other forms of dyspnea] Onset: 06-29-2016 06-29-2016 Episodic Other nutritional; endocrine; and metabolic disorders (1 source) Obesity; Translations: [Obesity, unspecified] Onset: 07-16-2017 07-16-2017 Chronic Other skin disorders (2 sources) Lichen sclerosus et atrophicus; 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 Felicitas-; endo-; and myocarditis; cardiomyopathy (2 sources) Cardiomyopathy; Translations: [Other cardiomyopathies] Onset: 06-29-2016 06-29-2016 Chronic Residual codes; unclassified (1 source) Family history of substance abuse; Translations: [Family history of alcohol abuse and dependence] 05-05-2019 Episodic Thyroid disorders (1 source) Hypothyroidism, unspecified; Translations: [Hypothyroidism, unspecified] Onset: 08-20-2024 Chronic Unclassified (1 source) Body mass index (BMI) 37.0-37.9, adult; Translations: [Body mass index (BMI) 37.0-37.9, adult] Onset: 05-16-2016 05-16-2016 Chronic Unclassified (1 source) Long-term drug therapy; Translations: [Other nursing home (current) drug therapy] Onset: 05-16-2016 05-16-2016 Past or Other Problems Problem Classification Problem Date Documented Da te Episodic/Chronic Immunizations and screening for infectious disease (1 source) Encounter for immunization; Translations: [Encounter for immunization] Onset: 07-06-2024 Episodic Other screening for suspected conditions (not mental disorders or infectious disease) (1 source) Encounter for screening mammogram for malignant neoplasm of breast; Translations: [Encounter for screening mammogram for malignant neoplasm of breast] Onset: 02-25-2024 Episodic Unclassified (1 source) Family history of alcoholism; Translations: [Family history of alcohol abuse and dependence] 06-07-2017 Episodic Results Test Name Value Interpretation Reference Range Facility Calprotectin, Stoolon [address] 29 ug/g Normal 0-[address] [facility] Comment on above: Order Comment: Test( s) [id number], Neutral; [id number]-Fqsg, Totalwas developed and its performance characteristicsdetermined by [facility]. It has not been cleared or approvedby the Food and Drug Administration. Result Comment: Conc entration Interpretation Follow-Up < 5 - 50 ug/g Normal None >50 -120 ug/g Borderline Re-evaluate in 4-6 weeks >120 ug/g Abnormal Repeat as clinically indicated Performed at: [address] [id number] Bobbin Fixer: Onofre Zepeda PhD, Phone: [phone] Performed at: [address] [id number] [employer] Fixer: Tonya Angeles MD, Phone: [phone] Performed By: #### L [id number], L506.1000, L500.4100, L100.0100, L506.0400, L500.4050, L503.0105 #### [facility] [address] [place], [address] Fecal Fat, Qualitativeon FATS, NEUTRAL Normal Normal . [facility] Comment on above: Order Comment: Test( s) [id number], Neutral; [id number]-Iwfd, Totalwas developed and its performance characteristicsdetermined by [facility]. It has not been cleared or approvedby the Food and Drug Administration. Result Comment: Norm al (<60 Droplets/HPF) Performed By: #### L [id number], L506.1000, L500.4100, L100.0100, L506.0400, L500.4050, L503.0105 #### [facility] [address] [place], [place], [id number] FATS, TOTAL Normal Normal . [facility] Comment on above: Order Comment: Test( s) [id number], Neutral; [id number]-Qczr, Totalwas developed and its performance characteristicsdetermined by [facility]. It has not been cleared or approvedby the Food and Drug Administration. Result Comment: Norm al (<100 Droplets/HPF) Performed By: #### L [id number], L506.1000, L500.4100, L100.0100, L506.0400, L500.4050, L503.0105 #### [facility] [address] [place], [address] [id number] 10-13-2024 P ELASTASE,FECA 125 Low >[address] [facility] Comment on above: Result Comment: Resu lt Units: ug Elast./g Severe Pancreatic Insufficiency: <100 Moderate Pancreatic Insufficiency: 100 - 200 Normal: >200 Performed at: [address] [id number] Bobbin Fixer: Tonya Angeles MD, Phone: [phone] Performed By: #### L [id number], L506.1000, L500.4100, L100.0100, L506.0400, L500.4050, L503.0105 #### [facility] [address] [place], [address] CDIFF (PCR)on 10-10-2024 CDIFF Pending [phone] [id number] Presumptive Negative *for epidemiolologic???use C. Diff PCR Negative- No toxigenic C. Diff Detected Normal [facility] Comment on above: Performed By: #### L [id number], L506.1000, L500.4100, L100.0100, L506.0400, L500.4050, L503.0105 #### [facility] [address] [place], [address] ENTERIC PATHOGEN PANEL STOOL on 10-10-2024 EP PANEL Normal Reference Ran ge = Not Detected Not detected for Campylobacter group, Salmonella species, Shigella species, Vibrio Group, Yersinia enterocolitica, EHEC (Shiga Toxin 1, Shiga Toxin 2), Norovirus Gl/Gll, and Rotavirus A. Other common stool pathogens are not detected on this panel include: Aeromonas/Plesiomonas or parasites. Order testing for these organisms separately if suspected. This is an amplified DNA test which makes it both specific and sensitive. CAMPYLOBACTER Not Detected Norovirus Not Detected Rotavirus Not Detected Salmonella Not Detected Shiga Toxin Not Detected Shigella sp. Not Detected VIBRIO Not Detected Yersinia Not Detected Normal [facility] Comment on above: Performed By: #### L [id number], L506.1000, L500.4100, L100.0100, L506.0400, L500.4050, L503.0105 #### [facility] [address] [place], [place], [id number] Stool Lactoferrin/WBCon 09-18 WBCST Normal Reference Ran ge = Negative Fecal WBC Lactoferrin Negative: No Fecal WBC Lactoferrin present Normal [facility] Comment on above: Performed By: #### L [id number], L506.1000, L500.4100, L100.0100, L506.0400, L500.4050, L503.0105 #### [facility] [address] [place], [place], [id number] Stool Occult Blood iFOBon STOB Normal Reference Ran ge = Negative Immunochemical Fecal Occult Blood (iFOBT) method. Hemoccult Stl Ql IA Limitation: Menstrual bleeding, constipation bleeding, bleeding hemorrhoids, and urinary bleeding conditions may interfere with test. Occult Blood Negative Normal [facility] Comment on above: Performed By: #### L [id number], L506.1000, L500.4100, L100.0100, L506.0400, L500.4050, L503.0105 #### [facility] [address] [place], [place], [id number] MIGUE + Protein Elect, Serumon 10-08-2024 PROTEIN,TOTAL Normal [facility] Comment on above: Order Comment: Y Result Comment: TEST RESULTS LIMITS MIGUE and PE, Serum Immunoglobulin G, Qn, Serum 750 mg/dL [id number] Immunoglobulin A, Qn, Serum 119 mg/dL 64-422 Immunoglobulin M, Qn, Serum 44 mg/dL 26-217 Protein, Total 6.3 g/dL 6.0-8.5 Albumin 3.9 g/dL 2.9-4.4 Mykvp-8-Opaiazxg 0.2 g/dL 0.0-0.4 Ghgsh-0-Sohbehir 0.7 g/dL 0.4-1.0 Beta Globulin 0.8 g/dL 0.7-1.3 Gamma Globulin 0.6 g/dL 0.4-1.8 M-Barber Not Observed g/dL Not Observed Globulin, Total 2.4 g/dL 2.2-3.9 A/G Ratio 1.7 0.7-1.7 Immunofixation Result, Serum No monoclonality detected. Please note: Protein electrophoresis scan will follow via computer, mail, or deaf teacher delivery. TESTING PERFORMED AT [facility]. ORIGINAL REPORT ON FILE IN LAB CONTAINS ADDITIONAL TEST SITE INFORMATION. Performed By: #### L [id number], L506.1000, L500.4100, L100.0100, L506.0400, L500.4050, L503.0105 #### [facility] [address] [place], [address] Immunoglobulins G/A/M/See IMMUNOGLOB E QN Normal [facility] Comment on above: Order Comment: Y Result Comment: TEST RESULTS LIMITS Immunoglobulin E, Total <2 Low IU/mL 6-495 TESTING PERFORMED AT [facility]. ORIGINAL REPORT ON FILE IN LAB CONTAINS ADDITIONAL TEST SITE INFORMATION. Performed By: #### L [id number], L506.1000, L500.4100, L100.0100, L506.0400, L500.4050, L503.0105 #### [facility] [address] [place], [address] L2100.0000on 10-08-2024 ALCA Normal [facility] Comment on above: Order Comment: Y Result Comment: TEST RESULTS LIMITS IBD Expanded Panel Italo 3 units 0-50 Negative: <45 Equivocal: 45-50 Positive: >50 ACCA 24 units 0-90 Negative: <80 Equivocal: 80-90 Positive: >90 ALCA 5 units 0-60 Negative:<55 Equivocal: 55-60 Positive: >60 AMCA 23 units 0-100 Negative: <90 Equivocal: 90-100 Positive: >100 This test was developed and its performance characteristics determined by [facility]. It has not been cleared or approved by the Food and Drug Administration. The FDA has determined that such clearance or approval is not necessary. Atypical pANCA Negative Negative Comments Pattern is not suggestive of Inflammatory Bowel Disease TESTING PERFORMED AT [facility]. ORIGINAL REPORT ON FILE IN LAB CONTAINS ADDITIONAL TEST SITE INFORMATION. Performed By: #### L 501.9520, L506.1000, L500.4100, L100.0100, L506.0400, L500.4050, L503.0105 #### [facility] [address] [place], [place], [id number] L5500.0550on 10-07-2024 BEEF <0.10 Normal Class [address] [facility] Comment on above: Performed By: #### L 506.0250, L3100.3425, L501.6710, L2100.0000, L101.9900, L504.2610, L5500.0550, L3200.1100, L503.0105 ####[facility] [address] [place], [place], [phone] CHOCOLATE <0.10 Normal Class [address] [facility] Comment on above: Performed By: #### L 506.0250, L3100.3425, L501.6710, L2100.0000, L101.9900, L504.2610, L5500.0550, L3200.1100, L503.0105 ####[facility] [address] [place], [place], [id number] CODFISH <0.10 Normal Class [address] [facility] Comment on above: Performed By: #### L 506.0250, L3100.3425, L501.6710, L2100.0000, L101.9900, L504.2610, L5500.0550, L3200.1100, L503.0105 ####[facility] [address] [place], [place], [phone] COMMENT Comment Normal . [facility] Comment on above: Result Comment: Elena fine of Specific IgE Class Description of Class ----- < 0.10 0 Negative 0.10 - 0.31 0/I Equivocal/Low 0.32 - 0.55 I Low 0.56 - 1.40 II Moderate 1.41 - 3.90 III High 3.91 - 19.00 IV Very High 19.01 - 100.00 V Very High >100.00 Very High Performed By: #### L 506.0250, L3100.3425, L501.6710, L2100.0000, L101.9900, L504.2610, L5500.0550, L3200.1100, L503.0105 ####[facility] [address] [place], [place], [id number] CORN <0.10 Normal Class [address] [facility] Comment on above: Performed By: #### L 506.0250, L3100.3425, L501.6710, L2100.0000, L101.9900, L504.2610, L5500.0550, L3200.1100, L503.0105 ####[facility] [address] [place], [place], [id number] EGG, WHOLE <0.10 Normal Class [address] [facility] Comment on above: Result Comment: Perf ormed at: - Lab[address] [id number] Bobbin Fixer: Tonya Angeles MD, Phone: [phone] Performed By: #### L 506.0250, L3100.3425, L501.6710, L2100.0000, L101.9900, L504.2610, L5500.0550, L3200.1100, L503.0105 ####[facility] [address] [place], [place], [phone] MILK (COW) <0.10 Normal Class [address] [facility] Comment on above: Performed By: #### L 506.0250, L3100.3425, L501.6710, L2100.0000, L101.9900, L504.2610, L5500.0550, L3200.1100, L503.0105 ####[facility] [address] [place], [address] MUSSELS <0.10 Normal Class [address] [facility] Comment on above: Performed By: #### L 506.0250, L3100.3425, L501.6710, L2100.0000, L101.9900, L504.2610, L5500.0550, L3200.1100, L503.0105 ####[facility] [address] [place], [address] PEANUT <0.10 Normal Class [address] [facility] Comment on above: Performed By: #### L 506.0250, L3100.3425, L501.6710, L2100.0000, L101.9900, L504.2610, L5500.0550, L3200.1100, L503.0105 ####[facility] [address] [place], [place], [phone] PORK <0.10 Normal Class [address] [facility] Comment on above: Performed By: #### L 506.0250, L3100.3425, L501.6710, L2100.0000, L101.9900, L504.2610, L5500.0550, L3200.1100, L503.0105 ####[facility] [address] [place], [place], [phone] SALMON <0.10 Normal Class [address] [facility] Comment on above: Performed By: #### L 506.0250, L3100.3425, L501.6710, L2100.0000, L101.9900, L504.2610, L5500.0550, L3200.1100, L503.0105 ####[facility] [address] [place], [address] SHRIMP <0.10 Normal Class [address] [facility] Comment on above: Performed By: #### L 506.0250, L3100.3425, L501.6710, L2100.0000, L101.9900, L504.2610, L5500.0550, L3200.1100, L503.0105 ####[facility] [address] [place], [address] SOYBEAN <0.10 Normal Class [address] [facility] Comment on above: Performed By: #### L 506.0250, L3100.3425, L501.6710, L2100.0000, L101.9900, L504.2610, L5500.0550, L3200.1100, L503.0105 ####[facility] [address] [place], [address] TUNA <0.10 Normal Class [address] [facility] Comment on above: Performed By: #### L 506.0250, L3100.3425, L501.6710, L2100.0000, L101.9900, L504.2610, L5500.0550, L3200.1100, L503.0105 ####[facility] [address] [place], [address] WHEAT <0.10 Normal Class [address] [facility] Comment on above: Performed By: #### L 506.0250, L3100.3425, L501.6710, L2100.0000, L101.9900, L504.2610, L5500.0550, L3200.1100, L503.0105 ####[facility] [address] [place], [address] Abdomen/Pelvis WITH Contrast on 10-02-2024 Abdomen/Pelvis WITH Contrast [facility] Imaging Services [address] [place] [address] Abdomen/Pelvis WITH Contrast MR#: [id number] Acct: [id number] Name: DOLLY ESCALERA Rep #: [id number] : 1935 F 88 From: Hari lea MD PCP: JOSÉ MANUEL Azar Status: REG CLI Study: Abdomen/Pelvis WITH Contrast Date of Exam: Exam# [id number] Ordering Dr: Radhames Casillas DO [id number] STUDY: CT ABDOMEN AND PELVIS WITH CONTRAST REASON FOR EXAM: Female, 88 years old. Diarrhea RADIATION DOSAGE (If Supplied By Facility): CTDIvol = ( 18.82 ) mGy, DLP = ( 959.42 ) mGycm TECHNIQUE: Transaxial images were obtained from the dome of the diaphragm to the symphysis pubis with oral contrast. Oral and amp; IV Readi-CAT and amp; 100mL Isovue-370 was administered. Sagittal and coronal images were reconstructed. Individualized dose optimization techniques were used for this CT. COMPARISON: None. FINDINGS: The visualized lung bases are unremarkable. Coronary artery calcification. There is decreased attenuation of the liver consistent with steatosis. Normal gallbladder and extrahepatic biliary system. Normal spleen. Normal pancreas. Normal bilateral adrenal glands. There is a 1.6 cm cyst in the medial upper pole of the right kidney. There is also evidence of a 1.2 cm cyst in the inferior lateral aspect of the right kidney. Normal left kidney. There is a small hiatal hernia. Normal small intestine. There are multiple colonic diverticula consistent with diverticulosis. The patient is status post appendectomy. There is diffuse atherosclerotic calcification of the abdominal aorta and its major visceral branches., without a demonstrated aneurysm. Normal inferior vena cava. Normal retroperitoneum. Normal urinary bladder. Prior hysterectomy. Normal abdominal wall. There are diffuse degenerative changes of the visualized lumbar spine. Prior intraventricular screw and megan fixation at the L3-L4 and L4-L5 levels. Anterior listhesis of L4 on L5. 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 CT/Abdomen/Pelvis WITH Contrast IMPRESSION: Fatty infiltration of the liver. Right renal cysts. Sigmoid diverticulosis. Electronically Signed: Hari Gomez MD at 15:07 EST , CC: JOSÉ MANUEL Mane; Radhames Friend, Flipping Machine Operator: Signed Normal [facility] CRPon 10-02-2024 C-REACTIVE PROT 4.27 mg/L High 0.0-3.[address] [facility] Comment on above: Order Comment: 1N Result Comment: C-Re active Protein (CRP) provides useful information for the diagnosis, therapy and monitoring of inflammatory processes and associated diseases. For the evaluation of Relative Risk for Cardiovascular Disease, a High Sensitivity CRP (HSCRP) should be ordered. Performed By: #### L 506.0250, L3100.3425, L501.6710, L2100.0000, L101.9900, L504.2610, L5500.0550, L3200.1100, L503.0105 ####[facility] [address] [place], [place], [phone] Erythrocyte Sed Rateon 10-02 SED RATE 16 mm/hr Normal 0-[address] [facility] Comment on above: Performed By: #### L 506.0250, L3100.3425, L501.6710, L2100.0000, L101.9900, L504.2610, L5500.0550, L3200.1100, L503.0105 ####[facility] [address] [place], [place], [phone] Folates, (Folic Acid)on 09-17 FOLATES 32.40 ng/mL Normal 3.1-55.[address] [facility] Comment on above: Order Comment: 1N Performed By: #### L 506.0250, L3100.3425, L501.6710, L2100.0000, L101.9900, L504.2610, L5500.0550, L3200.1100, L503.0105 ####[facility] [address] [place], [place], [phone] LDHon 10-02-2024 LDH 192 U/L Normal 84-[address] [facility] Comment on above: Order Comment: 1N Performed By: #### L 506.0250, L3100.3425, L501.6710, L2100.0000, L101.9900, L504.2610, L5500.0550, L3200.1100, L503.0105 ####[facility] [address] [facility] [place], [address] Vitamin B12on 10-02-2024 Cobalamin (Vitamin B12) [Mass/Vol] 689 pg/mL Normal 211-[address] [facility] Comment on above: Performed By: #### L 506.0250, L3100.3425, L501.6710, L2100.0000, L101.9900, L504.2610, L5500.0550, L3200.1100, L503.0105 ####[facility] [address] [facility] [place], [address] Colonoscopy Reporton 025 Colonoscopy Report [facility] Medical Records Department [address] [place] [address] Colonoscopy Report MR#: [id number] Acct: [id number] Name: DOLLY ESCALERA Rep #: [id number] : 1935 88 From: Radhames Casillas DO PCP: JOSÉ MANUEL Azar Status:[facility] Patient Name: Dolly Escalera Procedure Date: 09/23/2024 3:40 PM Date of : 1935 Age: 88 Procedure: Colonoscopy Indications: Chronic diarrhea, Clinically significant diarrhea of unexplained origin, Functional diarrhea Providers: Radhames Casillas DO Medicines: Monitored Anesthesia Care Patient Profile: This is an 88 year old female. Refer to note in patient chart for documentation of history and physical. Last Colonoscopy: 5 years ago. Complications: No immediate complications. Procedure: Pre-Anesthesia Assessment: - Prior to the procedure, a History and Physical was performed, and patient medications and allergies were reviewed. The patient is competent. The risks and benefits of the procedure and the sedation options and risks were discussed with the patient. All questions were answered and informed consent was obtained. Patient identification and proposed procedure were verified by the physician in the pre-procedure area. Mental Status Examination: alert and oriented. Airway Examination: normal oropharyngeal airway and neck mobility. Respiratory Examination: clear to auscultation. CV Examination: normal. ASA Grade Assessment: II - A patient with mild systemic disease. After reviewing the risks and benefits, the patient was deemed in satisfactory condition to undergo the procedure. The anesthesia plan was to use moderate sedation / analgesia (conscious sedation). Immediately prior to administration of medications, the patient was re-assessed for adequacy to receive sedatives. The heart rate, respiratory rate, oxygen saturations, blood pressure, adequacy of pulmonary ventilation, and response to care were monitored throughout the procedure. The physical status of the patient was re-assessed after the procedure. After I obtained informed consent, the scope was passed under direct vision. Throughout the procedure, the patient's blood pressure, pulse, and oxygen saturations were monitored continuously. The pediatric colonoscope was introduced through the anus and advanced to the cecum, identified by appendiceal orifice and ileocecal valve. The colonoscopy was performed without difficulty. The patient tolerated the procedure well. The quality of the bowel preparation was adequate. The ileocecal valve, appendiceal orifice, and rectum were photographed. Scope In: 3:57:24 PM Scope Withdrawal Time 0 hours 8 minutes 50 seconds Scope Out: 4:09:38 PM Total Procedure Duration Time 0 hours 12 minutes 14 seconds Findings: The perianal and digital rectal examinations were normal. Hemorrhoids were found on perianal exam. Non-bleeding external and internal hemorrhoids were found during retroflexion. The hemorrhoids were Grade III (internal hemorrhoids that prolapse but require manual reduction). Multiple small-mouthed diverticula were found in the recto-sigmoid colon, sigmoid colon and hepatic flexure. An area of mildly congested mucosa was found in the sigmoid colon, in the transverse colon and in the ascending colon. Biopsies were taken with a cold forceps for histology. Verification of patient identification for the specimen was done. Estimated blood loss was minimal. An 8 mm polyp was found in the cecum. The polyp was sessile. The polyp was removed with a jumbo cold forceps. Resection and retrieval were complete. Verification of patient identification for the specimen was done. Estimated blood loss was minimal. Impression: - Hemorrhoids found on perianal exam. - Non-bleeding external and internal hemorrhoids. - Diverticulosis in the recto-sigmoid colon, in the sigmoid colon and at the hepatic flexure. - Congested mucosa in the sigmoid colon, in the transverse colon and in the ascending colon. Biopsied. - One 8 mm polyp in the cecum, removed with a jumbo cold forceps. Resected and retrieved. Recommendation: - No recommendation at this time regarding repeat colonoscopy due to age. - Continue present medications. Procedure Code(s): --- Professional --- 32947, Colonoscopy, flexible; with biopsy, single or multiple CPT copyright 2021 [employer]. All rights reserved. The codes documented in this report are preliminary and upon housing counselor review may be revised to meet current compliance requirements. Radhames Casillas DO 09/23/2024 4:18:44 PM This report has been signed electronically. Number of Addenda: 0 Note Initiated On: 09/23/2024 3:40 PM 09/23/24 1618 Date Radhames Casillas DO Cosigner Signature: Date _ (more content not included)... Normal [facility] EGD Reporton 09-23-2024 EGD Report [facility] Medical Records Department [address] [place] [address] EGD Report MR#: [id number] Acct: [id number] Name: DOLLY ESCALERA Rep #: [id number] : 1935 88 From: Radhames Casillas DO PCP: JOSÉ MANUEL Azar Status[place] [facility] Patient Name: Dolly Escalera Procedure Date: 09/23/2024 3:49 PM Date of : 1935 Age: 88 Procedure: Upper GI endoscopy Indications: Epigastric abdominal pain, Functional Dyspepsia, Failure to respond to medical treatment Providers: Radhames Casillas DO Medicines: Monitored Anesthesia Care Patient Profile: This is an 88 year old female. Refer to note in patient chart for documentation of history and physical. Patient has symptoms of chronic abdominal cramping, chronic epigastric abdominal pain, chronic dyspepsia and chronic nausea. Complications: No immediate complications. Procedure: Pre-Anesthesia Assessment: - Prior to the procedure, a History and Physical was performed, and patient medications and allergies were reviewed. The patient is competent. The risks and benefits of the procedure and the sedation options and risks were discussed with the patient. All questions were answered and informed consent was obtained. Patient identification and proposed procedure were verified by the physician in the pre-procedure area. Mental Status Examination: alert and oriented. Airway Examination: normal oropharyngeal airway and neck mobility. Respiratory Examination: clear to auscultation. CV Examination: normal. Prophylactic Antibiotics: The patient does not require prophylactic antibiotics. Prior Anticoagulants: The patient has taken no anticoagulant or antiplatelet agents except for aspirin. ASA Grade Assessment: II - A patient with mild systemic disease. After reviewing the risks and benefits, the patient was deemed in satisfactory condition to undergo the procedure. The anesthesia plan was to use monitored anesthesia care (MAC). Immediately prior to administration of medications, the patient was re-assessed for adequacy to receive sedatives. The heart rate, respiratory rate, oxygen saturations, blood pressure, adequacy of pulmonary ventilation, and response to care were monitored throughout the procedure. The physical status of the patient was re-assessed after the procedure. After obtaining informed consent, the endoscope was passed under direct vision. Throughout the procedure, the patient's blood pressure, pulse, and oxygen saturations were monitored continuously. The pediatric colonoscope was introduced through the mouth, and advanced to the second part of duodenum. The upper GI endoscopy was accomplished without difficulty. The patient tolerated the procedure well. Scope In: 3:53:08 PM Scope Out: 3:55:47 PM Total Procedure Duration Time 0 hours 2 minutes 39 seconds Findings: The examined esophagus was normal. There was a medium-sized lipoma, 9 mm in diameter, in the gastric body. Biopsies were taken with a cold forceps for histology. Multiple 4 mm hyperplastic polyps with no bleeding and no stigmata of recent bleeding were found in the cardia, in the gastric fundus and in the gastric body. No gross lesions were noted in the first portion of the duodenum. Impression: - Normal esophagus. - Gastric lipoma. Biopsied. - Multiple gastric polyps. - No gross lesions in the first portion of the duodenum. Recommendation: - Await pathology results. - Await pathology results. - Continue present medications. Procedure Code(s): --- Professional --- 65725, Esophagogastroduodenoscopy, flexible, transoral; with biopsy, single or multiple CPT copyright 2021 [employer]. All rights reserved. The codes documented in this report are preliminary and upon housing counselor review may be revised to meet current compliance requirements. Radhames Casillas DO 09/23/2024 4:15:29 PM This report has been signed electronically. Number of Addenda: 0 Note Initiated On: 09/23/2024 3:49 PM 09/23/24 1615 Date Radhames Casillas DO Cosigner Signature: Date (if indicated) CC: PROGRAM ARCHITECT-Freda Mane; Radhames Casillas, Date Dictated: 09/23/24 1549 Date Transcribed: Flipping Machine Operator: AMARI Signed [facility] H Pylori (initial)on 025 H Pylori (initial) ------- Patient Age/Sex Location Account Attending Physician DOLLY ESCALERA 88/F EN [id number] Radhames Casillas DO Specimen: [id number] Received: 09/25/24 Status: KAYLA Vázquez Num: [id number] Spec Type: IMMUNO Subm Dr: Radhames Casillas DO PHYSICIAN INSTITUTION [place] [address] SPECIMEN INFORMATION: Tissue Source: A- Gastric polyp biopsy Clinical Info: Constipation, diarrhea Specimen Number: [id number] CPT code: 85073 METHODOLOGY: Deparaffinized sections of prefer/formalin-fixed tissue or PAP/DQ stained slides are incubated with monoclonal/polyclonal antibodies/oligonucleotide probes. Localization is made via biotin free immunoperoxidase method. Appropriate controls are performed and reacted as expected. Results on target cell population are indicated in the following table: RESULTS: ANTIBODY / CLONE RESULT Block A H Pylori (polyclonal) negative These tests were developed and their performance characteristics determined by [facility]. They may not have been cleared or approved by the U.S. Food and Drug Administration. The FDA has determined that such clearance or approval is not necessary. The above immunohistochemical/dualISH markers are ordered and reviewed by the Pathologist. INTERPRETATION: A. Gastric polyp, biopsy: Negative for Helicobacter pylori organisms. 09/26/2024 Signed (signature on file) Dr. Deon Vargas MD 09/26/[address] [facility] Comment on above: Performed By: #### L 501.9520, L506.1000, L500.4100, L100.0100, L506.0400, L500.4050, L503.0105 #### [facility] [address] [place], [address] MR/POSTOP.ANEon 09-23-2024 MR/POSTOP.ANE [facility] Medical Records Department [address] [place] [address] Anesthesia Postop Eval I 09/23/24 1614 MR#: [id number] Acct: [id number] Name: DOLLY ESCALERA Rep #: [id number] : 1935 88 From: Kristi Sams CRNA PCP: JOSÉ MANUEL Azar Status:REG SDC Y Race: C Location: [place] [address] Anesthesia: Postop Eval I Current Vital Signs Temperature: 98.9 F Pulse Rate: 62 Blood Pressure: 144/73 Respiratory Rate: 16 Pulse Ox: 97 Oxygen Delivery Method: Room Air Assessment Airway patent: Yes Spontaneous unlabored respirations: Yes Mental status: Awake and Calm nausea: No Vomiting: No Anesthesia Complication: No Fluid Hydration Crystalloid volume administer (ml): 10 Total IV fluid infused: 10 Progress Note Anesthesia document: Postop Eval 1 completed: Yes 09/23/241614 Date Kristi Sams CRNA Cosigner Signature: Date CC: Signed Normal [facility] MR/[id number] 09-23-2024 MR/POSTOPAN2 [facility] Medical Records Department [address] [place] [address] Anesthesia Postop Eval II 09/23/24 1710 MR#: [id number] Acct: [id number] Name: DOLLY ESCALERA Rep #: [id number] : 1935 88 From: Ricardo Soliman MD PCP: Yoli Mane PROGRAM ARCHITECT-C Status:REG SDC Y Race: C Location: [place] [address] Anesthesia Postop Eval I Sum Postop Eval Completion status Anesthesia document: Postop Eval 1 completed: Yes Anesthesia Postop Eval I Summary Anesthesia Postop Eval I Summary: Anesthesia Postop Eval I: Assessment Summary Airway patent Yes 09/23/24 16:15 ENVIRONMENTAL PLANNER.SKOBY Spontaneous unlabored Yes 09/23/24 16:15 ENVIRONMENTAL PLANNER.SKOBY respirations Mental status Awake,Calm 09/23/24 16:15 ENVIRONMENTAL PLANNER.SKOBY nausea No 09/23/24 16:15 ENVIRONMENTAL PLANNER.SKOBY Vomiting No 09/23/24 16:15 ENVIRONMENTAL PLANNER.SKOBY Anesthesia Postop Eval I: Fluid Summary Crystalloid volume administer 10 09/23/24 16:15 ENVIRONMENTAL PLANNER.SKOBY (ml) Colloids volume administered ( ml) Blood Product volume administered (ml) Total IV fluid infused 10 09/23/24 16:15 ENVIRONMENTAL PLANNER.SKOBY Anesthesia Postop Eval I: Summary Notes Anesthesia Complication No 09/23/24 16:15 ENVIRONMENTAL PLANNER.SKOBY Anesthesia Complication Comment: Post-operative progress note Anesthesia: Postop Eval II Evaluation Mental status: Awake and Calm Pain Level: 0 nausea: No Vomiting: No Complications Anesthesia Complication: No 09/23/24 1711 Date Ricardo Soliman MD Cosigner Signature: Date CC: Signed Normal [facility] Surgery Specimen Level Adele 09-23-2024 Surgery Specimen Level IV Patient Age/Sex Location Account Attending Physician DOLLY ESCALERA 88/F EN [id number] Radhames Casillas DO Specimen: [id number] Received: 09/23/24 Status: KAYLA Kathie Num: [id number] Spec Type: COLON BX Subm Dr: Radhames Casillas DO HEADER OPERATION: Colonoscopy, EGD, biopsy PRE-OP DIAGNOSIS: Constipation, diarrhea TISSUE SUBMITTED: A- Gastric polyp biopsy, B- Cecal polyp biopsy, C- Random colonic biopsy MICROSCOPIC DIAGNOSIS A. Gastric polyp, biopsy: Moderate gastritis. See microscopic description and comment. B. Cecal polyp, biopsy: Fragments of tubular adenoma. C. Colon, random biopsy: Fragments of colonic mucosa, no pathologic diagnosis. SJ. 09/25/2024 COMMENT A. The results of immunohistochemistry for Helicobacter pylori will be reported separately ([id number]). MICROSCOPIC DESCRIPTION Slides are reviewed. A. The specimen shows fragments of gastric mucosa with chronic inflammatory cell infiltrates in the lamina propria consisting of lymphocytes and plasma cells, consistent with moderate chronic gastritis. GROSS DESCRIPTION A. Received in fixative is one container labeled with the patient's name and designated Gastric polyp biopsy. The specimen consists of one irregular fragment of light bauman soft tissue that measures 0.7 x 0.4 x 0.1 cm. The specimen is totally submitted in one cassette. B. Received in fixative is one container labeled with the patient's name and designated Cecal polyp biopsy. The specimen consists of multiple irregular fragments of light bauman soft tissue that in aggregate measure 1.0 x 0.5 x 0.1 cm. The specimen is totally submitted in one cassette. C. Received in fixative is one container labeled with the patient's name and designated Random colonic biopsy. The specimen consists of multiple irregular fragments of light bauman soft tissue that in aggregate measure 1.5 x 0.5 x 0.2 cm. The specimen is totally submitted in one cassette. 09/24/2024 TC:1 [facility]:[id number] Patient Age/Sex Location Account Attending Physician DOLLY ESCALERA 88/ EN [id number] Radhames Casillas DO Signed (signature on file) Dr. Deon Vargas MD 09/25/[address] [facility] Comment on above: Performed By: #### L 501.9520, L506.1000, L500.4100, L100.0100, L506.0400, L500.4050, L503.0105 #### [facility] Laboratory [address] [place], [address] Gastroenterology Visit Repor ton 09-19-2024 Gastroenterology Visit Report [facility] [address] [place] [address] OFFICE VISIT Date of Service: 09/19/24 MR#: [id number] Acct: [id number] Name: DOLLY ESCALERA Rep #: [id number] : 1935 Provider: Radhames Casillas DO Age/Sex: 88/F Location: [facility] Status: Signed Intake Vital Signs 08/28/23 13:07 Height 5 ft 2 in Intake Visit Reasons: Pre Colon Allergies Penicillins Allergy (Verified 07/06/24 13:11) Anaphylaxis shrimp Allergy (Verified 07/06/24 13:11) Unknown procaine (From Novocain) Adverse Reaction (Severe, Verified 07/06/24 13:11) / amoxicillin Adverse Reaction (Intermediate, Verified 07/06/24 13:11) / Medications ???Medication ???Instructions ???Recorded ???Confirmed ???Type levothyroxine 100 mcg tablet 100 mcg PO DAILY 10/31/13 09/19/24 History ramipril 10 mg capsule 10 mg PO DAILY 10/31/13 09/19/24 History multivitamin with folic acid 400 1 tab PO DAILY 07/14/16 09/19/24 History mcg tablet Katie Move Free Ultra PO DAILY 05/13/19 09/19/24 History cranberry concentrate-ascorbic cap PO PRN 05/18/20 09/19/24 History acid 4,200 mg-20 mg capsule lactobacillus combination no.8 3 3,000 mmu cells PO DAILY 08/30/20 09/19/24 History billion cell capsule (Adult Probiotic) calcium 250 mg (as 1 tab PO DAILY 11/16/20 09/19/24 History citrate)-vitamin D3 5 mcg (200 unit) tablet (Citracal Regular) polyethylene glycol 3350 17 17 g PO DAILY 11/16/20 09/19/24 History gram/dose oral powder (Miralax) clobetasol 0.05 % topical ointment 1 applic topical QHS PRN itching 01/19/23 09/19/24 Rx #30 grams carvedilol 6.25 mg tablet 6.25 mg PO BID #180 TABLETS 07/18/24 09/19/24 Rx lactulose 10 gram/15 mL oral 10 g PO QDAY 09/19/24 09/19/24 History solution Have you fallen in the past year?: No PFSH Medical History Lichen sclerosus Hypothyroidism Non-ischemic cardiomyopathy Chronic systolic heart failure Essential (primary) hypertension Lichen sclerosus et atrophicus Cystocele and rectocele with incomplete uterovaginal prolapse Osteoarthritis Vision problems Kidney stones IBS (irritable bowel syndrome) Hearing loss Depression Anxiety Breast lump in female DVT (deep venous thrombosis) Back problem Arthritis Seasonal allergies Hyperlipemia Body mass index (BMI) 35 or more Obesity Surgical History History of left heart catheterization (07/17/16) Hx of breast lump removal H/O laminectomy H/O bilateral hip replacements History of bilateral knee replacement S/P excision of White's neuroma History of bladder suspension procedure History of hysterectomy H/O umbilical hernia repair History of appendectomy H/O adenoidectomy History of tonsillectomy H/O tubal ligation Cataracts, bilateral Family History Mother Breast cancer CAD (coronary artery disease) Brother Asthma Heart disease Bronchitis Father Parkinsons disease Sister Breast cancer Heart disease Daughter Anxiety Son COPD (chronic obstructive pulmonary disease) Alcoholism Other Family history of alcohol abuse Social History Smoking Status: Former smoker quit date: 09/16/71 how long ago did patient quit smokin second hand exposure: No alcohol intake: current alcohol intake frequency: a few times a week Alcohol type: wine substance use type: does not use caffeine: Yes Type: coffee Number of servings: 3 what type of physical activity do you participate in: none seatbelt use: always do you feel safe at home: Yes HPI HPI Details: DOLLY ESCALERA, is a 88 F who presents to the office today for initial consult. *BGI established 1.3. pt referred by primary for colonoscopy due to worsening symptoms. Pt reports she has always had constipation, but in the past few months miralax stopped working for her, her primary gave her lactulose. Since taking lactulose pt is having daily incontinence and only liquid stools. Pt reports she thinks there is a blockage she has been unable to pass. Pt reports lactulose gives her a stomachache and increased flatulence. Pt reports her last colonoscopy was 5 years ago. ROS Const Constitutional: Positive for fatigue and weakness; No fever(s) or weight change ENT ENT: No difficulty swallowing Cardio Cardiology: Positive for leg pain with exertion Gastro GI: Positive for abdominal pain, bloating, change in bowel habits, constipation, diarrhea, heartburn and excessive flatus; No belching, change in stool character, coffee ground emesis, cramping, difficulty swallowing, feeling full early, incontinent of stools, Vomiting blood/hematemesis, Blood in s (more content not included)... Normal [facility] CBC W/Diff, Automatedon 07-19 Absolute Lymph 1.29 X10 3/uL Normal 0.83-4.[address] [facility] Comment on above: Performed By: #### L 506.0400, L100.0100, L500.4050, L501.9520, L500.4100 #### [facility] [address] [place], [address] Absolute Neut 4.8 X10 3/uL Normal 2.0-7.[address] [facility] Comment on above: Performed By: #### L 506.0400, L100.0100, L500.4050, L501.9520, L500.4100 #### [facility] [address] [place], [address] Basophils/100 WBC (Bld) 0.9 % Normal 0-[address] [facility] Comment on above: Performed By: #### L 506.0400, L100.0100, L500.4050, L501.9520, L500.4100 #### [facility] [address] [place], [address] Eosinophils/100 WBC (Bld) 3.5 % Normal 0-[address] [facility] Comment on above: Performed By: #### L 506.0400, L100.0100, L500.4050, L501.9520, L500.4100 #### [facility] [address] [place], [address] Erythrocyte distribution width (RBC) [Ratio] 13.9 % Normal 11.6-14.[address] [facility] Comment on above: Performed By: #### L 506.0400, L100.0100, L500.4050, L501.9520, L500.4100 #### [facility] [address] [place], [address] Hematocrit (Bld) [Volume fraction] 42.7 % Normal 37-[address] [facility] Comment on above: Performed By: #### L 506.0400, L100.0100, L500.4050, L501.9520, L500.4100 #### [facility] [address] [place], [address] Hemoglobin (Bld) [Mass/Vol] 13.6 g/dL Normal 12.0-15.[address] [facility] Comment on above: Performed By: #### L 506.0400, L100.0100, L500.4050, L501.9520, L500.4100 #### [facility] [address] [place], [address] IG% 0.400 Normal 0.0-0.[address] [facility] Comment on above: Result Comment: IG% - Immature Granulocytes (promyelocytes, myelocytes and metamyelocytes) > 1% indicates that a LEFT SHIFT is Present. Performed By: #### L 506.0400, L100.0100, L500.4050, L501.9520, L500.4100 #### [facility] [address] [place], [address] Lymphocytes/100 WBC (Bld) 18.7 % Low 19-[address] [facility] Comment on above: Performed By: #### L 506.0400, L100.0100, L500.4050, L501.9520, L500.4100 #### [facility] [address] [place], [address] MCH (RBC) [Entitic mass] 27.6 pg Normal 27.0-32.[address] [facility] Comment on above: Performed By: #### L 506.0400, L100.0100, L500.4050, L501.9520, L500.4100 #### [facility] [address] [place], [address] MCHC (RBC) [Mass/Vol] 31.9 g/dL Low 32-[address] [facility] Comment on above: Performed By: #### L 506.0400, L100.0100, L500.4050, L501.9520, L500.4100 #### [facility] [address] [place], [address] MCV (RBC) [Entitic vol] 86.6 fL Normal 81-[address] [facility] Comment on above: Performed By: #### L 506.0400, L100.0100, L500.4050, L501.9520, L500.4100 #### [facility] [address] [place], [address] Monocytes/100 WBC (Bld) 7.2 % Normal 0-[address] [facility] Comment on above: Performed By: #### L 506.0400, L100.0100, L500.4050, L501.9520, L500.4100 #### [facility] [address] [place], [address] Neutrophils/100 WBC (Bld) 69.3 % Normal 47-[address] [facility] Comment on above: Performed By: #### L 506.0400, L100.0100, L500.4050, L501.9520, L500.4100 #### [facility] [address] [place], [address] Nucleated RBC (Bld) [#/Vol] 0 10*3/uL Normal 0-[address] [facility] Comment on above: Performed By: #### L 506.0400, L100.0100, L500.4050, L501.9520, L500.4100 #### [facility] [address] [place], [address] Platelet mean volume (Bld) [Entitic vol] 9.6 fL Normal 6.2-12.[address] [facility] Comment on above: Performed By: #### L 506.0400, L100.0100, L500.4050, L501.9520, L500.4100 #### [facility] [address] [place], [address] Platelets (Bld) [#/Vol] 278 10*3/uL Normal 150-[address] [facility] Comment on above: Performed By: #### L 506.0400, L100.0100, L500.4050, L501.9520, L500.4100 #### [facility] [address] [place], [address] RBC (Bld) [#/Vol] 4.93 10*6/uL Normal 4.2-5.4 [facility] Comment on above: Performed By: #### L 506.0400, L100.0100, L500.4050, L501.9520, L500.4100 #### [facility] [address] [place], [address] RDW SD 44.5 fl High 35.1-43.[address] [facility] Comment on above: Performed By: #### L 506.0400, L100.0100, L500.4050, L501.9520, L500.4100 #### [facility] [address] [place], [address] WBC (Bld) [#/Vol] 6.9 10*3/uL Normal 4.4-11.0 [facility] Comment on above: Performed By: #### L 506.0400, L100.0100, L500.4050, L501.9520, L500.4100 #### [facility] [address] [place], [address] Comprehensive [facility] 08-08-2024 Albumin [Mass/Vol] 3.5 g/dL Normal 3.2-5.0 [facility] Comment on above: Performed By: #### L 506.0400, L100.0100, L500.4050, L501.9520, L500.4100 ####[facility] [address] [place], [address] Albumin/Globulin [Mass ratio] 1.0 {ratio} Normal 0.9-2.[address] [facility] Comment on above: Performed By: #### L 506.0400, L100.0100, L500.4050, L501.9520, L500.4100 ####[facility] [address] [place], [address] ALK P 70 U/L Normal 45-[address] [facility] Comment on above: Performed By: #### L 506.0400, L100.0100, L500.4050, L501.9520, L500.4100 ####[facility] [address] [place], [address] ALT [Catalytic activity/Vol] 19 U/L Normal 13-[address] [facility] Comment on above: Performed By: #### L 506.0400, L100.0100, L500.4050, L501.9520, L500.4100 ####[facility] [address] [place], [address] AST [Catalytic activity/Vol] 13 U/L Low 15-[address] [facility] Comment on above: Performed By: #### L 506.0400, L100.0100, L500.4050, L501.9520, L500.4100 ####[facility] [address] [place], [address] Bilirubin [Mass/Vol] 0.40 mg/dL Normal 0.20-1.00 [facility] Comment on above: Result Comment: For patients on eltrombopag therapy, use of Dimension [place] TBIL is not recommended. Performed By: #### L 506.0400, L100.0100, L500.4050, L501.9520, L500.4100 ####[facility] [address] [place], [address] BUN/CRE 22.2 RATIO High 10-[address] [facility] Comment on above: Performed By: #### L 506.0400, L100.0100, L500.4050, L501.9520, L500.4100 ####[facility] [address] [place], [address] CA,Total 9.6 mg/dL Normal 8.5-10.[address] [facility] Comment on above: Performed By: #### L 506.0400, L100.0100, L500.4050, L501.9520, L500.4100 ####[facility] [address] [place], [address] Chloride [Moles/Vol] 106 mmol/L Normal 98-107 [facility] Comment on above: Performed By: #### L 506.0400, L100.0100, L500.4050, L501.9520, L500.4100 ####[facility] [address] [place], [address] CO2 [Moles/Vol] 26.0 mmol/L Normal 21.0-32.[address] [facility] Comment on above: Performed By: #### L 506.0400, L100.0100, L500.4050, L501.9520, L500.4100 ####[facility] [address] [place], [address] Creatinine [Mass/Vol] 0.68 mg/dL Normal 0.55-1.[address] [facility] Comment on above: Result Comment: The validity of the calculated GFR GFRAA in patients over 70 years has not been determined. Clinical correlation is essential. Performed By: #### L 506.0400, L100.0100, L500.4050, L501.9520, L500.4100 ####[facility] [address] [place], [address] EST GFR - AA 106 mL/min Normal >[address] [facility] Comment on above: Result Comment: Afri can Nigerian GFR Calc Performed By: #### L 506.0400, L100.0100, L500.4050, L501.9520, L500.4100 ####[facility] [address] [place], [address] GAP 8 Normal 5-[address] [facility] Comment on above: Performed By: #### L 506.0400, L100.0100, L500.4050, L501.9520, L500.4100 ####[facility] [address] [place], [address] GFR/1.73 sq M.predicted among non-blacks MDRD (S/P/Bld) [Vol rate/Area] 87 mL/min/{1.73_m2} Normal >[address] [facility] Comment on above: Result Comment: Non- GFR Calc Performed By: #### L 506.0400, L100.0100, L500.4050, L501.9520, L500.4100 ####[facility] [address] [place], [address] Globulin (S) [Mass/Vol] 3.5 g/dL Normal 2.2-4.[address] [facility] Comment on above: Performed By: #### L 506.0400, L100.0100, L500.4050, L501.9520, L500.4100 ####[facility] [address] [place], [address] Glucose [Mass/Vol] 96 mg/dL Normal 74-106 [facility] Comment on above: Performed By: #### L 506.0400, L100.0100, L500.4050, L501.9520, L500.4100 ####[facility] [address] [place], [address] Potassium [Moles/Vol] 4.3 mmol/L Normal 3.5-5.[address] [facility] Comment on above: Performed By: #### L 506.0400, L100.0100, L500.4050, L501.9520, L500.4100 ####[facility] [address] [place], [address] Sodium [Moles/Vol] 139 mmol/L Normal 136-145 [facility] Comment on above: Performed By: #### L 506.0400, L100.0100, L500.4050, L501.9520, L500.4100 ####[facility] [address] [place], [address] T PROT 7.0 g/dL Normal 6.4-8.[address] [facility] Comment on above: Performed By: #### L 506.0400, L100.0100, L500.4050, L501.9520, L500.4100 ####[facility] [address] [place], [address] Urea nitrogen [Mass/Vol] 15 mg/dL Normal 7-[address] [facility] Comment on above: Performed By: #### L 506.0400, L100.0100, L500.4050, L501.9520, L500.4100 ####[facility] [address] [place], [address] Lipid Profileon 08-08-2024 Cholesterol [Mass/Vol] 207 mg/dL High [address] [facility] Comment on above: Result Comment: <200 mg/dL Desirable 200-240 mg/dL Borderline >240 mg/dL High Risk Performed By: #### L 506.0400, L100.0100, L500.4050, L501.9520, L500.4100 ####[facility] [address] [place], [address] Cholesterol in HDL [Mass/Vol] 53 mg/dL Normal [facility] Comment on above: Result Comment: The drugs N-Acetylcysteine and Metamizole may falsely depress this assay. Reference Range HDL <40 mg/dL Low HDL Cholesterol HDL >or= 60 mg/dL High HDL Cholesterol Performed By: #### L 506.0400, L100.0100, L500.4050, L501.9520, L500.4100 ####[facility] [address] [place], [address] Cholesterol in LDL [Mass/Vol] 117 mg/dL Normal 0-[address] [facility] Comment on above: Performed By: #### L 506.0400, L100.0100, L500.4050, L501.9520, L500.4100 ####[facility] [address] [place], [address] Cholesterol in VLDL [Mass/Vol] 37 mg/dL Normal 5-[address] [facility] Comment on above: Performed By: #### L 506.0400, L100.0100, L500.4050, L501.9520, L500.4100 ####[facility] [address] [place], [address] Triglyceride [Mass/Vol] 186 mg/dL Normal [facility] Comment on above: Result Comment: The drugs N-Acetylcysteine and Metamizole may falsely depress this assay. Serum Triglycerides Reference Interval Normal <150 mg/dL Borderline high 150 - 199 mg/dL High 200 - 499 mg/dL Very High > or = 500 mg/dL Performed By: #### L 506.0400, L100.0100, L500.4050, L501.9520, L500.4100 ####[facility] [address] [place], [address] T4 Free Directon 08-08-2024 T4 FREE DIRECT 1.14 ng/dL Normal 0.76-1.[address] [facility] Comment on above: Performed By: #### L 506.0400, L100.0100, L500.4050, L501.9520, L500.4100 ####[facility] [address] [place], [address] Thyroid Stim Hormone (TSH)on 08-08-2024 TSH 1.240 uIU/mL Normal 0.358-3.[address] [facility] Comment on above: Performed By: #### L 506.0400, L100.0100, L500.4050, L501.9521, L500.4100 ####[facility] [address] [place], [address] Office Visit Reporton 2023 Office Visit Report [facility] [address] [place] [address] OFFICE VISIT Date of Service: 07/06/24 MR#: [id number] Acct: [id number] Patient: DOLLY ESCALERA Rep #: [id number] : 1935 Provider: JOSÉ MANUEL salgado Age/Sex: 88/F Location: [facility] Status: Signed Intake Vital Signs 08/28/23 13:07 Height 5 ft 2 in Weight: 210 lb BMI 38.4 BP 156/88 H Blood Pressure Location Lt brachial Position Sitting Respiration 22 H Pulse 75 Pulse Source Monitor Pulse Oximetry (%) 92 Intake Visit Reasons: ELBOW LACERATION [employer] Required: No Is patient in pain?: Yes Allergies Penicillins Allergy (Verified 07/06/24 13:11) Anaphylaxis shrimp Allergy (Verified 07/06/24 13:11) Unknown procaine (From Novocain) Adverse Reaction (Severe, Verified 07/06/24 13:11) / amoxicillin Adverse Reaction (Intermediate, Verified 07/06/24 13:11) / Is last menstrual period known: No Post menopausal: Yes Patient : No Have you fallen in the past year?: Yes Nurse's Note: tripped and fell yesterday onto right elbow in parking lot. c/o pain and wound to area. family cleansed area and applied steri-strips and pressure dressing later that day when pt returned home. pt would like medical opinion and recommendations. pt is NOT concerned for fracture and does NOT feel xray is warranted. dressing and steri strips removed, no active bleeding noted. tetanus is past due, pt willing to update. [facility] Medical History Lichen sclerosus Hypothyroidism Non-ischemic cardiomyopathy Chronic systolic heart failure Essential (primary) hypertension Lichen sclerosus et atrophicus Cystocele and rectocele with incomplete uterovaginal prolapse Osteoarthritis Vision problems Kidney stones IBS (irritable bowel syndrome) Hearing loss Depression Anxiety Breast lump in female DVT (deep venous thrombosis) Back problem Arthritis Seasonal allergies Hyperlipemia Body mass index (BMI) 35 or more Obesity Surgical History History of left heart catheterization (07/17/16) Hx of breast lump removal H/O laminectomy H/O bilateral hip replacements History of bilateral knee replacement S/P excision of White's neuroma History of bladder suspension procedure History of hysterectomy H/O umbilical hernia repair History of appendectomy H/O adenoidectomy History of tonsillectomy H/O tubal ligation Cataracts, bilateral Family History Mother Breast cancer CAD (coronary artery disease) Brother Asthma Heart disease Bronchitis Father Parkinsons disease Sister Breast cancer Heart disease Daughter Anxiety Son COPD (chronic obstructive pulmonary disease) Alcoholism Other Family history of alcohol abuse Social History Smoking Status: Former smoker quit date: 09/16/71 how long ago did patient quit smokin second hand exposure: No alcohol intake: current alcohol intake frequency: a few times a week Alcohol type: wine substance use type: does not use caffeine: Yes Type: coffee Number of servings: 3 what type of physical activity do you participate in: none seatbelt use: always do you feel safe at home: Yes HPI HPI Details: DOLLY ESCALERA, is a 88 F who presents to the office today for right elbow laceration. This occurred yesterday after a mechanical fall. She did not get it evaluated and wrapped it and placed Steri strips on it. She was concerned that the wrap on her elbow was tight and she wanted to make sure it was healing as it should. She denies fever, chills, right arm numbness, right arm tingling, decreased range of motion, or decreased sensitivity. On physical exam, her right radial pulses 2+. She acknowledges full sensation. She has full range of motion. She is able to move all digits. She does have a very small pinpoint laceration to her right elbow. Bleeding is intact. No drainage noted. ROS Const Constitutional: Positive for other (See HPI) Exam Const Other: See HPI Immunizations Boostrix Tdap 2.5 Lf unit-8 mcg-5 Lf/0.5 mL intramuscular syringe Performing Provider: Golden Soto PROGRAM ARCHITECT, PROGRAM ARCHITECT-C [facility] Location[facility] Administered by: Esther Rivera on 07/06/24 13:39 Dose Route Admin Location Dispensed Lot Number Expiration Date NDC Man ufacturer 0.5 mL IM Right Deltoid 0.5 mL [id number] 07/26/26 98676-113-11 [employer] (Chat[employer]) VIS Given Date VIS Provided VIS Publication Date 07/06/24 Single Vaccine 21 Eligibility Eligibility Date Funding Source Not Applicable Coding Level of Care Code Off vis,new,level 2 Diagnoses Laceration of right elbow, initial encounter S51.011A Encounter type: initial enc (more content not included)... Normal [facility] Urgent Care Visit Reporton 1 Urgent Care Visit Report [facility] [address] [place] [address] OFFICE VISIT Date of Service: 07/06/24 MR#: [id number] Acct: [id number] Patient: DOLLY ESCALERA Rep #: [id number] : 1935 Provider: JOSÉ MANUEL salgado Age/Sex: 88/F Location: [facility] Status: Signed with Addenda ADDENDUM by VIOLETA-Freda Soto on 07/06/24 at 1403 Assessment and Plan Assessment and Plan (1) Elbow laceration: Status: Acute Qualifiers: Encounter type: initial encounter Laterality: right Qualified Code(s): S51.011A - Laceration without foreign body of right elbow, initial encounter Plan: She did receive her tetanus vaccination on an abundance of caution. 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 c/o pain and wound to area. family cleansed area and applied steri-strips and pressure dressing later that day when pt returned home. pt would like medical opinion and recommendations. pt is NOT concerned for fracture and does NOT feel xray is warranted. dressing and steri strips removed, no active bleeding noted. tetanus is past due, pt willing to update. [facility] Medical History Lichen sclerosus Hypothyroidism Non-ischemic cardiomyopathy Chronic systolic heart failure Essential (primary) hypertension Lichen sclerosus et atrophicus Cystocele and rectocele with incomplete uterovaginal prolapse Osteoarthritis Vision problems Kidney stones IBS (irritable bowel syndrome) Hearing loss Depression Anxiety Breast lump in female DVT (deep venous thrombosis) Back problem Arthritis Seasonal allergies Hyperlipemia Body mass index (BMI) 35 or more Obesity Surgical History History of left heart catheterization (07/17/16) Hx of breast lump removal H/O laminectomy H/O bilateral hip replacements History of bilateral knee replacement S/P excision of White's neuroma History of bladder suspension procedure History of hysterectomy H/O umbilical hernia repair History of appendectomy H/O adenoidectomy History of tonsillectomy H/O tubal ligation Cataracts, bilateral Family History Mother Breast cancer CAD (coronary artery disease) Brother Asthma Heart disease Bronchitis Father Parkinsons disease Sister Breast cancer Heart disease Daughter Anxiety Son COPD (chronic obstructive pulmonary disease) Alcoholism Other Family history of alcohol abuse Social History Smoking Status: Former smoker quit date: 09/16/71 how long ago did patient quit smokin second hand exposure: No alcohol intake: current alcohol intake frequency: a few times a week Alcohol type: wine substance use type: does not use caffeine: Yes Type: coffee Number of servings: 3 what type of physical activity do you participate in: none seatbelt use: always do you feel safe at home: Yes HPI HPI Details: DOLLY ESCALERA, is a 88 F who presents to the office today for right elbow laceration. This occurred yesterday after a mechanical fall. She did not get it evaluated and wrapped it and placed Steri strips on it. She was concerned that the wrap on her elbow was tight and she wanted to make sure it was healing as it should. She denies fever, chills, right arm numbness, right arm tingling, decreased range of motion, or decreased sensitivity. On physical exam, her right radial pulses 2+. She acknowledges full sensation. She has full range of motion. She is able to move all digits. She does have a very small pinpoint laceration to her right elbow. Bleeding is intact. No drainage noted. ROS Const Constitutional: Positive for other (See HPI) Exam Const Other: See HPI Immunizations Boostrix Tdap 2.5 Lf unit-8 mcg-5 Lf/0.5 mL intramuscular sy (more content not included)... Normal [facility] SCRN MAMM (CAD)W/KAYLAN BILATo n 02-18-2024 SCRN MAMM (CAD)W/KAYLAN [facility] Imaging Services [address] [place] [id number] SCRN MAMM (CAD)W/KAYLAN BILAT MR#: [id number] Acct: [id number] Name: DOLLY ESCALERA Rep #: [id number] : 1935 F 88 From: Hari lea MD PCP: JOSÉ MANUEL Azar Status: REG CLI Study: SCRN MAMM (CAD)W/KAYLAN BILAT Date of Exam: 12/08 Exam# [id number] Ordering Dr: Yoli ManeC [id number] MAMMOGRAPHY - BILATERAL SCREENING REASON FOR EXAM: Female, 88 years old. Routine annual screening examination. PERTINENT HISTORY: Sisters with breast cancer. Mother with breast cancer. Remote right excisional breast biopsy and breast aspiration. TECHNIQUE: Digital bilateral breast kaylan (3D mammographic acquisition) in the CC and MLO projections. 2-D mediolateral oblique (MLO) and craniocaudad (CC) views of both breasts were obtained. CAD: Full Field Digital Mammography with Computer Added Detection was performed. COMPARISON: Comparison is made with prior study dated January 31, 2023 and November 01, 2021. FINDINGS: Breast Composition: There are scattered areas of fibroglandular density. There are no dominant masses or suspicious calcifications. Stable benign-appearing axillary lymph nodes. No other significant abnormalities are identified. There has been no significant change since the prior study. BI/SCRN MAMM (CAD)W/KAYLAN BILAT IMPRESSION: Stable bilateral screening mammogram. Yearly follow-up mammogram recommended. (A) ASSESSMENT CATEGORY: BIRADS Category 2: Benign. A letter regarding these results will be sent to the patient by the facility within 30 days. Approximately 10% of breast cancers are not detected by mammography. A normal mammogram should not delay biopsy of a clinically suspicious abnormality. [id number] Electronically Signed: Hari Gomez MD at 8:36 EDT , CC: JOSÉ MANUEL Mane Flipping Machine Operator: Signed Normal [facility] CBC W/Diff, Automatedon 05-2 Absolute Lymph 1.44 X10 3/uL Normal 0.83-4.[address] [facility] Comment on above: Performed By: #### L 501.9520, L506.1000, L500.4100, L100.0100, L506.0400, L500.4050, L503.0105 #### [facility] [address] [place], [address] Absolute Neut 5.1 X10 3/uL Normal 2.0-7.[address] [facility] Comment on above: Performed By: #### L 501.9520, L506.1000, L500.4100, L100.0100, L506.0400, L500.4050, L503.0105 #### [facility] [address] [place], [address] Basophils/100 WBC (Bld) 0.3 % Normal 0-[address] [facility] Comment on above: Performed By: #### L 501.9520, L506.1000, L500.4100, L100.0100, L506.0400, L500.4050, L503.0105 #### [facility] [address] [place], [address] Eosinophils/100 WBC (Bld) 1.7 % Normal 0-[address] [facility] Comment on above: Performed By: #### L 501.9520, L506.1000, L500.4100, L100.0100, L506.0400, L500.4050, L503.0105 #### [facility] [address] [place], [address] Erythrocyte distribution width (RBC) [Ratio] 14.3 % Normal 11.6-14.[address] [facility] Comment on above: Performed By: #### L 501.9520, L506.1000, L500.4100, L100.0100, L506.0400, L500.4050, L503.0105 #### [facility] [address] [place], [address] Hematocrit (Bld) [Volume fraction] 43.3 % Normal 37-[address] [facility] Comment on above: Performed By: #### L 501.9520, L506.1000, L500.4100, L100.0100, L506.0400, L500.4050, L503.0105 #### [facility] [address] [place], [address] Hemoglobin (Bld) [Mass/Vol] 13.6 g/dL Normal 12.0-15.[address] [facility] Comment on above: Performed By: #### L 501.9520, L506.1000, L500.4100, L100.0100, L506.0400, L500.4050, L503.0105 #### [facility] [address] [place], [address] IG% 0.400 Normal 0.0-0.[address] [facility] Comment on above: Result Comment: IG% - Immature Granulocytes (promyelocytes, myelocytes and metamyelocytes) > 1% indicates that a LEFT SHIFT is Present. Performed By: #### L 501.9520, L506.1000, L500.4100, L100.0100, L506.0400, L500.4050, L503.0105 #### [facility] [address] [place], [address] Lymphocytes/100 WBC (Bld) 20.1 % Normal 19-[address] [facility] Comment on above: Performed By: #### L 501.9520, L506.1000, L500.4100, L100.0100, L506.0400, L500.4050, L503.0105 #### [facility] [address] [place], [address] MCH (RBC) [Entitic mass] 27.4 pg Normal 27.0-32.[address] [facility] Comment on above: Performed By: #### L 501.9520, L506.1000, L500.4100, L100.0100, L506.0400, L500.4050, L503.0105 #### [facility] [address] [place], [address] MCHC (RBC) [Mass/Vol] 31.4 g/dL Low 32-[address] [facility] Comment on above: Performed By: #### L 501.9520, L506.1000, L500.4100, L100.0100, L506.0400, L500.4050, L503.0105 #### [facility] [address] [place], [address] MCV (RBC) [Entitic vol] 87.1 fL Normal 81-[address] [facility] Comment on above: Performed By: #### L 501.9520, L506.1000, L500.4100, L100.0100, L506.0400, L500.4050, L503.0105 #### [facility] [address] [place], [address] Monocytes/100 WBC (Bld) 6.0 % Normal 0-[address] [facility] Comment on above: Performed By: #### L 501.9520, L506.1000, L500.4100, L100.0100, L506.0400, L500.4050, L503.0105 #### [facility] [address] [place], [address] Neutrophils/100 WBC (Bld) 71.5 % High 47-[address] [facility] Comment on above: Performed By: #### L 501.9520, L506.1000, L500.4100, L100.0100, L506.0400, L500.4050, L503.0105 #### [facility] [address] [place], [address] Nucleated RBC (Bld) [#/Vol] 0 10*3/uL Normal 0-[address] [facility] Comment on above: Performed By: #### L 501.9520, L506.1000, L500.4100, L100.0100, L506.0400, L500.4050, L503.0105 #### [facility] [address] [place], [address] Platelet mean volume (Bld) [Entitic vol] 10.0 fL Normal 6.2-12.[address] [facility] Comment on above: Performed By: #### L 501.9520, L506.1000, L500.4100, L100.0100, L506.0400, L500.4050, L503.0105 #### [facility] [address] [place], [address] Platelets (Bld) [#/Vol] 282 10*3/uL Normal 150-[address] [facility] Comment on above: Performed By: #### L 501.9520, L506.1000, L500.4100, L100.0100, L506.0400, L500.4050, L503.0105 #### [facility] [address] [place], [address] RBC (Bld) [#/Vol] 4.97 10*6/uL Normal 4.2-5.4 [facility] Comment on above: Performed By: #### L 501.9520, L506.1000, L500.4100, L100.0100, L506.0400, L500.4050, L503.0105 #### [facility] [address] [place], [address] RDW SD 45.8 fl High 35.1-43.[address] [facility] Comment on above: Performed By: #### L 501.9520, L506.1000, L500.4100, L100.0100, L506.0400, L500.4050, L503.0105 #### [facility] [address] [place], [address] WBC (Bld) [#/Vol] 7.2 10*3/uL Normal 4.4-11.0 [facility] Comment on above: Performed By: #### L 501.9520, L506.1000, L500.4100, L100.0100, L506.0400, L500.4050, L503.0105 #### [facility] [address] [place], [address] Comprehensive Metabolic Prof ilon 02-13-2024 Albumin [Mass/Vol] 3.7 g/dL Normal 3.2-5.0 [facility] Comment on above: Performed By: #### L 501.9520, L506.1000, L500.4100, L100.0100, L506.0400, L500.4050, L503.0105 #### [facility] [address] [place], [address] Albumin/Globulin [Mass ratio] 1.1 {ratio} Normal 0.9-2.[address] [facility] Comment on above: Performed By: #### L 501.9520, L506.1000, L500.4100, L100.0100, L506.0400, L500.4050, L503.0105 #### [facility] [address] [place], [address] ALK P 69 U/L Normal 45-[address] [facility] Comment on above: Performed By: #### L 501.9520, L506.1000, L500.4100, L100.0100, L506.0400, L500.4050, L503.0105 #### [facility] [address] [place], [address] ALT [Catalytic activity/Vol] 20 U/L Normal 13-[address] [facility] Comment on above: Performed By: #### L 501.9520, L506.1000, L500.4100, L100.0100, L506.0400, L500.4050, L503.0105 #### [facility] [address] [place], [address] AST [Catalytic activity/Vol] 19 U/L Normal 15-[address] [facility] Comment on above: Performed By: #### L 501.9520, L506.1000, L500.4100, L100.0100, L506.0400, L500.4050, L503.0105 #### [facility] [address] [place], [address] Bilirubin [Mass/Vol] 0.40 mg/dL Normal 0.20-1.00 [facility] Comment on above: Result Comment: For patients on eltrombopag therapy, use of Dimension [place] TBIL is not recommended. Performed By: #### L 501.9520, L506.1000, L500.4100, L100.0100, L506.0400, L500.4050, L503.0105 #### [facility] [address] [place], [address] BUN/CRE 22.8 RATIO High 10-[address] [facility] Comment on above: Performed By: #### L 501.9520, L506.1000, L500.4100, L100.0100, L506.0400, L500.4050, L503.0105 #### [facility] [address] [place], [address] CA,Total 9.7 mg/dL Normal 8.5-10.[address] [facility] Comment on above: Performed By: #### L 501.9520, L506.1000, L500.4100, L100.0100, L506.0400, L500.4050, L503.0105 #### [facility] [address] [place], [address] Chloride [Moles/Vol] 106 mmol/L Normal 98-107 [facility] Comment on above: Performed By: #### L 501.9520, L506.1000, L500.4100, L100.0100, L506.0400, L500.4050, L503.0105 #### [facility] [address] [place], [address] CO2 [Moles/Vol] 26.0 mmol/L Normal 21.0-32.[address] [facility] Comment on above: Performed By: #### L 501.9520, L506.1000, L500.4100, L100.0100, L506.0400, L500.4050, L503.0105 #### [facility] [address] [place], [address] Creatinine [Mass/Vol] 0.70 mg/dL Normal 0.55-1.[address] [facility] Comment on above: Result Comment: The validity of the calculated GFR GFRAA in patients over 70 years has not been determined. Clinical correlation is essential. Performed By: #### L 501.9520, L506.1000, L500.4100, L100.0100, L506.0400, L500.4050, L503.0105 #### [facility] [address] [place], [address] EST GFR - AA 101 mL/min Normal >[address] [facility] Comment on above: Result Comment: Afri can Nigerian GFR Calc Performed By: #### L 501.9520, L506.1000, L500.4100, L100.0100, L506.0400, L500.4050, L503.0105 #### [facility] [address] [place], [address] GAP 7 Normal 5-[address] [facility] Comment on above: Performed By: #### L 501.9520, L506.1000, L500.4100, L100.0100, L506.0400, L500.4050, L503.0105 #### [facility] [address] [place], [address] GFR/1.73 sq M.predicted among non-blacks MDRD (S/P/Bld) [Vol rate/Area] 84 mL/min/{1.73_m2} Normal >[address] [facility] Comment on above: Result Comment: Non- GFR Calc Performed By: #### L 501.9520, L506.1000, L500.4100, L100.0100, L506.0400, L500.4050, L503.0105 #### [facility] [address] [place], [address] Globulin (S) [Mass/Vol] 3.3 g/dL Normal 2.2-4.[address] [facility] Comment on above: Performed By: #### L 501.9520, L506.1000, L500.4100, L100.0100, L506.0400, L500.4050, L503.0105 #### [facility] [address] [place], [address] Glucose [Mass/Vol] 89 mg/dL Normal 74-106 [facility] Comment on above: Performed By: #### L 501.9520, L506.1000, L500.4100, L100.0100, L506.0400, L500.4050, L503.0105 #### [facility] [address] [place], [address] Potassium [Moles/Vol] 4.2 mmol/L Normal 3.5-5.[address] [facility] Comment on above: Performed By: #### L 501.9520, L506.1000, L500.4100, L100.0100, L506.0400, L500.4050, L503.0105 #### [facility] [address] [place], [address] Sodium [Moles/Vol] 139 mmol/L Normal 136-145 [facility] Comment on above: Performed By: #### L 501.9520, L506.1000, L500.4100, L100.0100, L506.0400, L500.4050, L503.0105 #### [facility] [address] [place], [address] T PROT 7.0 g/dL Normal 6.4-8.[address] [facility] Comment on above: Performed By: #### L 501.9520, L506.1000, L500.4100, L100.0100, L506.0400, L500.4050, L503.0105 #### [facility] [address] [place], [address] Urea nitrogen [Mass/Vol] 16 mg/dL Normal 7-[address] [facility] Comment on above: Performed By: #### L 501.9520, L506.1000, L500.4100, L100.0100, L506.0400, L500.4050, L503.0105 #### [facility] [address] [place], [address] Lipid Profileon 02-13-2024 Cholesterol [Mass/Vol] 189 mg/dL Normal [address] [facility] Comment on above: Result Comment: <200 mg/dL Desirable 200-240 mg/dL Borderline >240 mg/dL High Risk Performed By: #### L 501.9520, L506.1000, L500.4100, L100.0100, L506.0400, L500.4050, L503.0105 #### [facility] [address] [place], [address] Cholesterol in HDL [Mass/Vol] 64 mg/dL Normal [facility] Comment on above: Result Comment: The drugs N-Acetylcysteine and Metamizole may falsely depress this assay. Reference Range HDL <40 mg/dL Low HDL Cholesterol HDL >or= 60 mg/dL High HDL Cholesterol Performed By: #### L 501.9520, L506.1000, L500.4100, L100.0100, L506.0400, L500.4050, L503.0105 #### [facility] [address] [place], [address] Cholesterol in LDL [Mass/Vol] 109 mg/dL Normal 0-[address] [facility] Comment on above: Performed By: #### L 501.9520, L506.1000, L500.4100, L100.0100, L506.0400, L500.4050, L503.0105 #### [facility] [address] [place], [address] Cholesterol in VLDL [Mass/Vol] 16 mg/dL Normal 5-[address] [facility] Comment on above: Performed By: #### L 501.9520, L506.1000, L500.4100, L100.0100, L506.0400, L500.4050, L503.0105 #### [facility] [address] [place], [address] Triglyceride [Mass/Vol] 82 mg/dL Normal [facility] Comment on above: Result Comment: The drugs N-Acetylcysteine and Metamizole may falsely depress this assay. Serum Triglycerides Reference Interval Normal <150 mg/dL Borderline high 150 - 199 mg/dL High 200 - 499 mg/dL Very High > or = 500 mg/dL Performed By: #### L 501.9520, L506.1000, L500.4100, L100.0100, L506.0400, L500.4050, L503.0105 #### [facility] [address] [place], [address] T4 Free Directon 02-13-2024 T4 FREE DIRECT 1.59 ng/dL High 0.76-1.[address] [facility] Comment on above: Performed By: #### L 501.9520, L506.1000, L500.4100, L100.0100, L506.0400, L500.4050, L503.0105 #### [facility] [address] [place], [address] Thyroid Stim Hormone (TSH)on 02-13-2024 TSH 0.21 uIU/mL Low 0.358-3.[address] [facility] Comment on above: Performed By: #### L 501.9520, L506.1000, L500.4100, L100.0100, L506.0400, L500.4050, L503.0105 #### [facility] [address] [place], [place], [address] Vitamin B12on 02-13-2024 Cobalamin (Vitamin B12) [Mass/Vol] 599 pg/mL Normal 211-[address] [facility] Comment on above: Performed By: #### L 501.9520, L506.1000, L500.4100, L100.0100, L506.0400, L500.4050, L503.0105 #### [facility] [address] [place], [address] Vitamin D,25 Hydroxyon 02-12 Vitamin D 25-OH 40.8 ng/mL Normal [facility] Comment on above: Result Comment: Love min D 25(OH) Status Range Deficiency <20 ng/mL (50nmol/L) Insufficiency 20 - 30 ng/mL (50 - 75 nmol/L) Sufficiency 30 - 100 ng/mL (75 - 250 nmol/L) Toxicity >100 ng/mL (>250 nmol/L) Performed By: #### L 501.9520, L506.1000, L500.4100, L100.0100, L506.0400, L500.4050, L503.0105 #### [facility] [address] [place], [address] Absolute lymphocyte countOrd ered By: Yoli Mane on 02-09-2023 Lymphocytes Auto (Unsp spec) [#/Vol] 1.54 10*3/uL 0.83-4.[address] [facility] Basophil percentageOrdered B y: Yoli Mane on 02-09-2023 Basophils/100 WBC (Bld) 0.4 % 0-[address] [facility] Bilirubin [Mass/Vol] 0.40 mg/dL 0.20-1.00 [facility] Comment on above: For patients on eltr ombopag therapy, use of Dimension [place] TBIL is not recommended. Chloride [Moles/Vol] 107 mmol/L 98-107 [facility] Cholesterol [Mass/Vol] 218 mg/dL <[address] [facility] Comment on above: <200 mg/dL Desirable 200-240 mg/dL Borderline >240 mg/dL High Risk Eosinophils/100 WBC (Bld) 1.2 % 0-[address] [facility] Glucose [Mass/Vol] 94 mg/dL 74-106 [facility] Neutrophils (Bld) [#/Vol] 6.3 10*3/uL 2.0-7.[address] [facility] Neutrophils/100 WBC (Bld) 74.2 % 47-[address] [facility] Potassium [Moles/Vol] 4.4 mmol/L 3.5-5.[address] [facility] Protein [Mass/Vol] 7.2 g/dL 6.4-8.2 [facility] Sodium [Moles/Vol] 142 mmol/L 136-145 [facility] Triglyceride [Mass/Vol] 133 mg/dL <[address] [facility] Comment on above: The drugs N-Acetylcy steine and Metamizole may falsely depress this assay.Serum Triglycerides Reference Interval Normal <150 mg/dL Borderline high 150 - 199 mg/dL High 200 - 499 mg/dL Very High > or = 500 mg/dL WBC (Bld) [#/Vol] 8.5 10*3/uL 4.4-11.0 [facility] Blood erythrocytes count (nu mber/volume)Ordered By: Yoli Mane on 02-09-2023 RBC (Bld) [#/Vol] 5.16 10*6/uL 4.2-5.4 [facility] Blood hemoglobin measurement (mass/volume)Ordered By: Yoli Mane on 02-09-2023 Hemoglobin (Bld) [Mass/Vol] 14.3 g/dL 12.0-15.[address] [facility] Blood lymphocytes/100 leukoc ytesOrdered By: Yoli Mane on 02-09-2023 Lymphocytes/100 WBC (Bld) 18.0 % 19-[address] [facility] Blood monocytes/100 leukocyt esOrdered By: Yolijeremiah Mane on 02-09-2023 Monocytes/100 WBC (Bld) 6.0 % 0-[address] [facility] Blood platelet mean volumeOr dered By: Napa Alhaji on 02-09-2023 Platelet mean volume (Bld) [Entitic vol] 9.2 fL 6.2-12.[address] [facility] Determination of erythrocyte mean corpuscular volume (MCV)Ordered By: Napa Alhaji on 02-09-2023 MCV (RBC) [Entitic vol] 86.2 fL 81-[address] [facility] Hematocrit Auto (Bld) [Volum e fraction]Ordered By: Napa Alhaji on 02-09-2023 Hematocrit (Bld) [Volume fraction] 44.5 % 37-[address] [facility] Laboratory - Chemistry and C hemistry - challengeOrdered By: [facility] on 02-09-2023 ALP [Catalytic activity/Vol] 69 U/L 45-[address] [facility] ALT [Catalytic activity/Vol] 20 U/L 13-[address] [facility] CO2 [Moles/Vol] 29.0 mmol/L 21.0-32.[address] [facility] Free T4 [Mass/Vol] 1.28 ng/dL 0.76-1.46 [facility] Globulin (S) [Mass/Vol] 3.5 g/dL 2.2-4.[address] [facility] Urea nitrogen/Creatinine [Mass ratio] 26.1 mg/mg 10-[address] [facility] Laboratory - Hematology and Cell countsOrdered By: Napa Alhaji on 02-09-2023 Erythrocyte distribution width (RBC) [Entitic vol] 47.1 fL 35.1-43.[address] [facility] Erythrocyte distribution width (RBC) [Ratio] 14.7 % 11.6-14.[address] [facility] Immature granulocytes/100 WBC (Bld) 0.200 % 0.0-0.[address] [facility] Comment on above: IG% - Immature Granu locytes (promyelocytes, myelocytes and metamyelocytes) > 1% indicates that a LEFT SHIFT is Present. MCH (RBC) [Entitic mass] 27.7 pg 27.0-32.[address] [facility] Nucleated RBC/100 WBC (Bld) [Ratio] 0 % 0-[address] [facility] MCHC Auto (RBC) [Mass/Vol]Or dered By: Yoli Mane on 02-09-2023 MCHC (RBC) [Mass/Vol] 32.1 g/dL 32-[address] [facility] No Panel InformationOrdered By: Yoli Mane on 02-09-2023 Estimated GFR (MDRD) Amer 104 mL/min >[address] [facility] Comment on above: GFR Calc Estimated GFR (MDRD) Non-Af Amer 86 mL/min >[address] [facility] Comment on above: Non- GFR Calc Thyroid Stimulating Hormone (TSH) 0.86 uIU/mL 0.358-3.[address] [facility] Platelets bldOrdered By: Tamera Mane on 02-09-2023 Platelets (Bld) [#/Vol] 269 10*3/uL 150-[address] [facility] Serum or plasma albumin jessy urement (mass/volume)Ordered By: Yoli Mane on 02-09-2023 Albumin [Mass/Vol] 3.7 g/dL 3.2-5.0 [facility] Serum or plasma albumin/glob ulin mass ratioOrdered By: Yoli Mane on 02-09-2023 Albumin/Globulin [Mass ratio] 1.1 {ratio} 0.9-2.[address] [facility] Serum or plasma calcium jessy urement (mass/volume)Ordered By: Yoli Mane on 02-09-2023 Calcium [Mass/Vol] 9.6 mg/dL 8.5-10.1 [facility] Serum or plasma cholesterol in HDL measurement (mass/volume)Ordered By: Yoli Mane on 02-09-2023 Cholesterol in HDL [Mass/Vol] 66 mg/dL >[address] [facility] Comment on above: The drugs N-Acetylcy steine and Metamizole may falsely depress this assay. Reference Range HDL <40 mg/dL Low HDL Cholesterol HDL >or= 60 mg/dL High HDL Cholesterol Serum or plasma cholesterol in VLDL measurement (mass/volume)Ordered By: Yoli Mane on 02-09-2023 Cholesterol in VLDL [Mass/Vol] 27 mg/dL 5-[address] [facility] Serum or plasma creatinine m easurement (mass/volume)Ordered By: Yoli Mane on 02-09-2023 Creatinine [Mass/Vol] 0.69 mg/dL 0.55-1.[address] [facility] Comment on above: The validity of the calculated GFR & GFRAA in patients over 70 years has not been determined. Clinical correlation is essential. Serum or plasma low density lipoprotein (LDL) cholesterol measurement (mass/volume)Ordered By: Yoli Mane on 02-09-2023 Cholesterol in LDL [Mass/Vol] 125 mg/dL 0-[address] [facility] Serum or plasma urea nitroge n measurement (mass/volume)Ordered By: Yoli Mane on 02-09-2023 Urea nitrogen [Mass/Vol] 18 mg/dL 7-[address] [facility] Thin prep Papanicolaou smear with manual screeningOrdered By: Yoli Mane on 02-09-2023 Thin prep Papanicolaou smear with manual screening 15 U/L 15-[address] [facility] Thin prep Papanicolaou smear with manual screening 6 5-[address] [facility] Office Visit: Dyspnea on exe rtionon 07-16-2017 Dietary management education, guidance, and counseling (procedure) yes Invalid Interpretation Code [facility] Phone: Documentation of current medications (procedure) Done Invalid Interpretation Code [facility] Phone: Tobacco use CPHS Former smoker Invalid Interpretation Code [facility] Phone: Office Visiton 05-01-2017 Fall risk assessment No Invalid Interpretation Code [facility] Phone: Lab Report: Basic Metabolic Profile (BMP)on 06-29-2016 Anion gap -1 mmol/L Low 5-15 [facility] Phone: BUN/Creatinine Ratio 25.0 RATIO High 10-20 [facility] Phone: Calcium 9.5 mg/dL Invalid Interpretation Code 8.5-10.1 [facility] Phone: Chloride 105 mmol/L Invalid Interpretation Code 98-107 [facility] Work Phone: CO2 31.0 mmol/L Invalid Interpretation Code 21.0-32.0 [facility] Work Phone: Creatinine 0.64 mg/dL Invalid Interpretation Code 0.55-1.20 [facility] Work Phone: eGFR (non-black) 95 mL/min/{1.73_m2} Invalid Interpretation Code >60 [facility] Work Phone: eGFR (non-black) 115 mL/min/{1.73_m2} Invalid Interpretation Code >60 [facility] Work Phone: Glucose mass conc 81 mg/dL Invalid Interpretation Code 70-110 [facility] Work Phone: Potassium molar conc 3.8 mmol/L Invalid Interpretation Code 3.5-5.1 [facility] Work Phone: Sodium 135 mmol/L Low 136-145 [facility] Work Phone: Urea nitrogen 16 mg/dL Invalid Interpretation Code 7-18 [facility] Work Phone: Lab Report: CBC-Complete Blo od Cnt No Diffon 06-29-2016 Erythrocyte distribution width Auto Ratio (RBC) 13.9 % Invalid Interpretation Code 11.6-14.6 [facility] Work Phone: Erythrocytes (RBC) 4.77 10*6/uL Invalid Interpretation Code 4.2-5.4 [facility] Work Phone: Hematocrit (HCT) 40.6 % Invalid Interpretation Code 37-47 [facility] Work Phone: Hemoglobin mass conc (Bld) 13.4 g/dL Invalid Interpretation Code 12.0-15.0 [facility] Work Phone: MCH 28.1 pg Invalid Interpretation Code 27.0-32.0 [facility] Work Phone: MCHC mass conc (RBC) 33.0 G/GL Invalid Interpretation Code 32-36 [facility] Work Phone: MCV 85.1 fL Invalid Interpretation Code 81-99 [facility] Phone: Platelets 283 10*3/mm3 Invalid Interpretation Code 150-450 [facility] Phone: PMV by Tamela 9.5 fL Invalid Interpretation Code 6.2-12.0 [facility] Phone: RDW SD 43.4 fL Invalid Interpretation Code 35.1-43.9 [facility] Work Phone: WBC (Leukocytes) 8.3 10*3/uL Invalid Interpretation Code 4.4-11.0 [facility] Phone: Lab Report: Prothrombin Time w/INRon 06-29-2016 INR Coag RelTime (PPP) 1.0 {INR} Invalid Interpretation Code [facility] Phone: Prothrombin time (PT) Coag time (PPP) 13.2 s Invalid Interpretation Code 11.7-14.9 [facility] Work Phone: Lab Report: Thyroid Stim Hor macrelo (TSH)on 06-29-2016 Thyroid stimulating hormone (TSH) 1.38 u[iU]/mL Invalid Interpretation Code 0.358-3.74 [facility] Phone: Replaced Document: Lashaun CEDILLO Observationson 06-29-2016 EKG QRS axis -4 deg Invalid Interpretation Code [facility] Phone: Interpretation Sinus Rhythm - occas ional ectopic ventricular beat Voltage criteria for LVH (R(I)+S(III) exceeds 2.50 mV) -Voltage criteria w/o ST/T abnormality may be normal. BORDERLINE Invalid Interpretation Code [facility] Phone: P [place] 49 deg Invalid Interpretation Code [facility] Phone: ND Interval 180 ms Invalid Interpretation Code [facility] Phone: Pulse (Heart Rate) 73 /min Invalid Interpretation Code [facility] Phone: QRS Duration 96 ms Invalid Interpretation Code [facility] Work Phone: QT Interval new path ms Invalid Interpretation Code [facility] Work Phone: QTc Argueta 420 ms Invalid Interpretation Code [facility] Work Phone: T [place] 23 deg Invalid Interpretation Code [facility] Work Phone: Clinical Lists Update: Clini marcial Noteon 06-06-2016 Left ventricular Ejection fraction 40 % Invalid Interpretation Code [facility] Work Phone: Clinical Lists Update: 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 Alanine aminotransferase (ALT) 25 U/L Invalid Interpretation Code [facility] Work Phone: Albumin 3.8 g/dL Invalid Interpretation Code [facility] Work Phone: Alkaline phosphatase (ALP) 71 U/L Invalid Interpretation Code [facility] Work Phone: Aspartate aminotransferase (AST) 21 U/L Invalid Interpretation Code [facility] Work Phone: Bilirubin (total) 0.40 mg/dL Invalid Interpretation Code [facility] Work Phone: Cholesterol 188 mg/dL Invalid Interpretation Code [facility] Work Phone: HDL Cholesterol 64 mg/dL Invalid Interpretation Code [facility] Work Phone: LDL Cholesterol 105 mg/dL Invalid Interpretation Code [facility] Work Phone: Protein 7.4 g/dL Invalid Interpretation Code [facility] Work Phone: Thyroxine (T4) free 1.21 ng/dL Invalid Interpretation Code [facility] Work Phone: Triglyceride 96 mg/dL Invalid Interpretation Code [facility] Work Phone: Vital Signs Date Time Vital Sign Value Performing Clinician Kaleb blackburn 01-19-2023 11:45-0400 Body height 157.[address] Seb Cohen Work Phone: [facility] 01-19-2023 11:44-0400 Body mass index (BMI) [Ratio] 36.9 kg/m2 Dr. Seb Cohen Work Phone: [facility] 01-19-2023 11:44-0400 Body weight 91.[address] Seb Cohen Work Phone: [facility] 07-16-2017 08:12-0400 BMI (Body Mass Index) 37.49 kg/m2 Patricia Wolf LPN [facility] Work Phone: 07-16-2017 08:12-0400 Body Temperature 97.2 [degF] Patriciasylvester Wolf LPN [facility] Work Phone: 07-16-2017 08:12-0400 BP Diastolic 84 mm[Hg] Patricia Wolf POSITION DESCRIPTION MANAGER [facility] Work Phone: 07-16-2017 08:12-0400 BP Systolic 128 mm[Hg] Patricia Wolf POSITION DESCRIPTION MANAGER [facility] Work Phone: 07-16-2017 08:12-0400 Height 157.48 cm Patriciasylvester Wolf LPN [facility] Work Phone: 07-16-2017 08:12-0400 Pulse (Heart Rate) 72 /min Patricia Wolf LPN [facility] Work Phone: 07-16-2017 08:12-0400 Respiratory Rate 18 /min Patricia Maryann POSITION DESCRIPTION MANAGER [facility] Work Phone: 07-16-2017 08:12-0400 Weight 92.99 kg Patriciasylvester Wolf POSITION DESCRIPTION MANAGER [facility] Work Phone: 09-29-2016 11:43-0500 BSA (Body Surface Area) 1.93 m2 Patriciasylvester Wolf POSITION DESCRIPTION MANAGER [facility] Work Phone: 06-29-2016 13:90-8719 Pulse Oximetry 97 % Patricia Wolf LPN [facility] Work Phone: Encounters Encounter Date Encounter Type Care Provider Facility Start: 10-11-[address] [facility] Friend Facility :[facility] Start: 10-09-2024 End: 10-09-[address] [facility] Friend Facility:[facility] Start: 10-02-2024 End: 10-02-2024 ambulatory Yoli Alhaji Facility:[facility] Start: 09-26-2024 ambulatory Oyli Alhaji Facility:[facility] Start: 09-23-2024 End: 09-23-[address] [facility] Friend Facility:[facility] Start: 09-19-2024 End: 09-19-2024 ambulatory Yoli Alhaji Facility:[facility] Start: 08-08-2024 End: 08-08-2024 ambulatory Yoli Alhaji Facility:[facility] Start: 07-06-2024 End: 07-06-2024 ambulatory Yoli Alhaji Facility:[facility] Start: 02-18-2024 End: 02-18-2024 ambulatory Yoli Alhaji Facility:[facility] Start: 02-13-2024 End: 02-13-2024 ambulatory Napa Alhaji Facility:[facility] Start: 02-09-2023 Non-patient / Non-visit Dr. Jero Cohen Work Phone: [facility] Start: 02-09-2023 End: 02-09-[address] Seb Cohen Work Phone: [facility] Work Phone: Start: 02-09-2023 End: 02-09-[address] Seb Cohen Work Phone: [facility] Start: 01-31-2023 End: 01-31-[address] Seb Cohen Work Phone: [facility]-Outpatient Breast Imaging Start: 01-19-2023 End: 01-19-[address] Seb Cohen Work Phone: [facility] Procedures Date Procedure Procedure Detail Performing Clinician Start: 01-31-2023 Screening mammography Lauri Cohen Work Phone: Start: 05-01-2017 End: 05-01-2017 Follow Up Appt 6 months Caity Castillo Start: 05-01-2017 End: 05-01-2017 MMM Jose Francisco Parkinson MD Start: 09-29-2016 End: 09-29-2016 CATERING OPERATIONS MANAGER Erlinda Ross PA-C Work Phone: Start: 09-29-2016 End: 09-29-2016 Follow Up Appt 6 months Erlinda haque PA-C Work Phone: Start: 06-29-2016 End: 06-30-2016 *BMP Jose Francisco Parkinson MD Start: 06-29-2016 End: 06-30-2016 CBC W Auto Differential panel - Blood Jose Francisco Parkinson MD Start: 06-29-2016 End: 09-22-2016 Chest x-ray Jose Francisco Parkinson MD Start: 06-29-2016 End: 06-29-2016 Ecg routine ecg w/least 12 lds w/i&r Jose Francisco Parkinson MD Start: 06-29-2016 End: 06-29-2016 Follow Up Appt 3 months Caity Castillo Start: 06-29-2016 End: 06-30-2016 INR in Platelet poor plasma by Coagulation assay Jose Francisco Parkinson MD Start: 06-29-2016 End: 09-22-2016 Left Heart Cath Jose Francisco Parkinson MD Start: 06-29-2016 End: 06-29-2016 MMM Jose Francisco Parkinson MD Start: 06-29-2016 End: 06-30-2016 Thyrotropin [Units/volume] in Serum or Plasma Jose Francisco Parkinson MD Start: 05-24-2016 End: 06-12-2016 24 hour holter monitor Jose Francisco Parkinson MD Start: 05-24-2016 End: 05-24-2016 CATERING OPERATIONS MANAGER Jose Francisco Parkinson MD Start: 05-24-2016 End: 06-12-2016 Ecg routine ecg w/least 12 lds w/i&r Jose Francisco Parkinson MD Start: 05-24-2016 End: 06-07-2016 Echocardiography Jose Francisco Parkinson MD Start: 05-24-2016 End: 05-24-2016 Follow Up Appt 1 month Jose Francisco Parkinson MD Plan of Treatment Date Care Activity Detail Author Start: 11-01-2017 End: 11-01-2017 Appointment Appointment [facility] Phone: Start: 08-22-2017 End: 08-22-2017 Appointment Appointment [facility] Phone: Start: 07-16-2017 End: 07-16-2017 [facility] Phone: Start: 07-16-2017 End: 07-16-2017 Follow Up Appt 6 weeks Follow Up Appt 6 weeks [facility] Phone: Start: 07-16-2017 End: 07-16-2017 Pulmonary Function Test - complete Pulmonary Function Test - complete [facility] Phone: Start: 07-16-2017 End: 07-16-2017 Pulmonary stress test/simple Pulmonary stress testing; simple (eg, 6-minute walk) [facility] Phone: Start: 07-16-2017 End: 07-16-2017 Appointment Appointment [facility] Phone: Start: 05-01-2017 End: 05-01-2017 Follow Up Appt 6 months Follow Up Appt 6 months [facility] Phone: Start: 05-01-2017 End: 05-01-2017 MMM MMM [facility] Phone: Start: 09-29-2016 End: 09-29-2016 CATERING OPERATIONS MANAGER CATERING OPERATIONS MANAGER [facility] Phone: Start: 09-29-2016 End: 09-29-2016 Follow Up Appt 6 months Follow Up Appt 6 months [facility] Phone: Start: 06-29-2016 End: 06-30-2016 *BMP *BMP [facility] Phone: Start: 06-29-2016 End: 06-30-2016 CBC W Auto Differential panel - Blood *CBC without Diff [facility] Phone: Start: 06-29-2016 End: 09-22-2016 Chest x-ray X-Ray, Chest, PA & Lateral [facility] Phone: Start: 06-29-2016 End: 06-29-2016 Ecg routine ecg w/least 12 lds w/i&r EKG (In office) [facility] Phone: Start: 06-29-2016 End: 06-29-2016 Follow Up Appt 3 months Follow Up Appt 3 months [facility] Phone: Start: 06-29-2016 End: 06-30-2016 INR Coag RelTime (PPP) *PT/INR [facility] Phone: Start: 06-29-2016 End: 06-29-2016 Left Heart Cath Left Heart Cath [facility] Phone: Start: 06-29-2016 End: 06-29-2016 MMM MMM [facility] Phone: Start: 06-29-2016 End: 06-30-2016 Thyroid stimulating hormone (TSH) *TSH [facility] Phone: Start: 05-24-2016 End: 06-12-2016 24 hour holter monitor 24 hour holter monitor [facility] Phone: Start: 05-24-2016 End: 05-24-2016 CATERING OPERATIONS MANAGER CATERING OPERATIONS MANAGER [facility] Phone: Start: 05-24-2016 End: 06-12-2016 Ecg routine ecg w/least 12 lds w/i&r EKG (In office) [facility] Phone: Start: 05-24-2016 End: 05-24-2016 Echocardiography Echocardiogram (complete) [facility] Phone: Start: 05-24-2016 End: 05-24-2016 Follow Up Appt 1 month Follow Up Appt 1 month [facility] Phone: Immunizations Immunization Date Immunization Notes Care Provider Fa cili 06-17-[address] Seb Cohen Work Phone: [facility] 10-18-2000 pneumococcal vaccine , unspecified formulation Dr. Seb Cohen Work Phone: [facility] Payers Date Payer Category Payer Self-pay [id number] 2024 Unknown [id number] 2010 Private Health Insurance [facility] [id number] 2000 Medicare [id number] Unknown [id number] 2.16.8 [id number] Unknown [id number] 2.16.8 [id number] Unknown [id number] 2.16.8 [id number] Unknown [id number] 2.16.8 [id number] Unknown [id number] 2.16.8 [id number] Unknown [id number] 2.16.8 [id number] Unknown [id number] 2.16.8 [id number] Unknown [id number] 2.16.8 [id number] Unknown [id number] 2.16.8 [id number] Unknown [id number] 2.16.8 [id number] Unknown [id number] 2.16.8 [id number] Social History Date Type Detail Facility Start: 01-19-2023 Tobacco smoking stat [facility] Unknown if ever smoked [facility] Start: 1935 Sex Assigned At Female [facility] Clinical Note 09-23-2024 Note Date & Type Note Facility 09-23-2024 Note [facility] Medical Records Department [address] [place] [address] History Physical Exam 09/23/24 1533 MR#: [id number] Acct: [id number] Name: DOLLY ESCALERA Rep #: [id number] : 1935 88 From: Radh[facility] Friend PCP: JOSÉ MANUEL Azar [place] [facility] [place] [address] HPI - General General Date of Admission: 09/23/24 Date of Service: 09/23/24 Chief Complaint: Diarrhea HPI Narrative DOLLY ESCALERA, is a 88 F who presentsUCILLE ESCALERA, is a 88 F who presents to the office today for initial consult. *BGI established 1.3.25 pt referred by primary for colonoscopy due to worsening symptoms. Pt reports she has always had constipation, but in the past few months miralax stopped working for her, her primary gave her lactulose. Since taking lactulose pt is having daily incontinence and only liquid stools. Pt reports she thinks there is a blockage she has been unable to pass. Pt reports lactulose gives her a stomachache and increased flatulence. Pt reports her last colonoscopy was 5 years ago. [facility] Medical History Lichen sclerosus Hypothyroidism Non-ischemic cardiomyopathy Chronic systolic heart failure Essential (primary) hypertension Lichen sclerosus et atrophicus Cystocele and rectocele with incomplete uterovaginal prolapse Osteoarthritis Vision problems Kidney stones IBS (irritable bowel syndrome) Hearing loss Depression Anxiety Breast lump in female DVT (deep venous thrombosis) Back problem Arthritis Seasonal allergies Hyperlipemia Body mass index (BMI) 35 or more Obesity Home Medications ???Medication ???Instructions ???Recorded ???Last Taken ???Type levothyroxine 100 mcg tablet 100 mcg PO DAILY 10/31/13 07/17/16 History ramipril 10 mg capsule 10 mg PO DAILY 10/31/13 09/23/24 History multivitamin with folic acid 400 1 tab PO DAILY 07/14/16 Unknown History mcg tablet Katie Move Free Ultra PO DAILY 05/13/19 Unknown History cranberry concentrate-ascorbic 2 cap PO .qday PRN uti 05/18/20 Unknown History acid 4,200 mg-20 mg capsule lactobacillus combination no.8 3 3,000 mmu cells PO DAILY 08/30/20 Unknown History billion cell capsule (Adult Probiotic) calcium 250 mg (as 1 tab PO DAILY 11/16/20 Unknown History citrate)-vitamin D3 5 mcg (200 unit) tablet (Citracal Regular) clobetasol 0.05 % topical ointment 1 applic topical QHS PRN itching 01/19/23 Unknown Rx #30 grams carvedilol 6.25 mg tablet 6.25 mg PO BID #180 TABLETS 07/18/24 09/23/24 07:00 Rx Allergy/AdvReac Type Severity Reaction Status Date / Time Penicillins Allergy Anaphylaxis Verified 09/23/24 15:04 shrimp Allergy Unknown Verified 09/23/24 15:04 procaine (From Novocain) AdvReac Severe / Verified 09/23/24 15:04 amoxicillin AdvReac Intermediate / Verified 09/23/24 15:04 Family History Mother Breast cancer CAD (coronary artery disease) Brother Asthma Heart disease Bronchitis Father Parkinsons disease Sister Breast cancer Heart disease Daughter Anxiety Son COPD (chronic obstructive pulmonary disease) Alcoholism Other Family history of alcohol abuse Surgical History History of left heart catheterization (07/17/16) Hx of breast lump removal H/O laminectomy H/O bilateral hip replacements History of bilateral knee replacement S/P excision of White's neuroma History of bladder suspension procedure History of hysterectomy H/O umbilical hernia repair History of appendectomy H/O adenoidectomy History of tonsillectomy H/O tubal ligation Cataracts, bilateral Social History Smoking Status: Former smoker quit date: 09/16/71 how long ago did patient quit smokin second hand exposure: No alcohol intake: current alcohol intake frequency: a few times a week Alcohol type: wine substance use type: does not use caffeine: Yes Type: coffee Number of servings: 3 what type of physical activity do you participate in: none seatbelt use: always do you feel safe at home: Yes ROS Constitutional Constitutional: Denies fatigue, fever(s), poor appetite, weight gain or weight loss Gastrointestinal Gastrointestinal: Denies belching, bloating, change in bowel habits, change in stool character, chewing difficulty, coffee ground emesis, constipation, cramping, diarrhea, dyspepsia, dysphagia, early satiety, excessive flatus, fecal incontinence, heartburn, hematemesis, hematochezia, hemorrhoids, loose stools, melena, nausea, odynophagia, rectal bleeding, tenesmus, vomiting or weight changes Vital Signs Vital Signs Vital Signs: 09/23/24 15:08 Temperature 97.8 F Tempera (more content not included)... [facility] Evaluation note Note Date & Type Note Facility Evaluation note Diagnosis Onset Date Depression chronic Lichen sclerosus chronic Encounter for routine gyneco logical examination noneactive 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 Reason for Visit Depression Lichen sclerosus Encounter for routine gynecological examination Family History No Family History Records Found Relationship Condition Age at Onset Recorded Date/T jefferson Not Specified Family history of alcohol abuse Unknown mother Malignant neoplasm of breast Unknown Coronary artery disease Unknown brother Asthma Unknown Cardiac disease Unknown Bronchitis Unknown father Parkinson's disease Unknown sister Malignant neoplasm of breast Unknown daughter Anxiety Unknown son Chronic obstructive pulmonary disease Unk nown Alcoholism Unknown Advance Directives No Advanced Directives Records Found Advance Directive Response Recorded Date/ Time Advance Directives Yes October 7:41pm Living Will Yes July 17 9:25am Power of Pile Driver Yes July 17, 2016 9:25am Summary Purpose Additional Source Comments Care Teams (unrecognized sec tion and content) Team Status: Active Member Role Status Dates Dr. Seb Coehn MD Family Provider Active Dr. Seb Cohen MD Primary Care Provider Active Team Status: Inactive Member Role Status Dates Dr. Seb Cohen MD Primary Care Provider, Referring Provider Active Dr. Glenis Pena MD Attending Provider Active Team Status: Active Member Role Status Dates Dr. Seb Cohen MD Primary Care Provider Active Dr. Krunal Garcia MD Attending Provider Active Team Status: Inactive Member Role Status Dates Dr. Seb Cohen MD Primary Care Provider Active Dr. Glenis Pena MD Attending Provider, Referr ing Provider Active Team Status: Inactive Member Role Status Dates Dr. Seb Cohen MD Primary Care Provider Active JOSÉ MANUEL Azar Attending Provider, Referring Prov ider Active Goals (unrecognized section and content) Goals may be documented in a n alternate section INFORMATION SOURCE (unrecogn ized section and content) DATE CREATED AUTHOR 10/31/2024 [facility] FOR RECORDS PERTAINING TO PATIENTS WHO ARE OR HAVE BEEN ENROLLED IN A CHEMICAL DEPENDENCY/SUBSTANCEABUSE PROGRAM, SOME INFORMATION MAY BE OMITTED. This clinical summary was aggregated from multiple sources. Caution should be exercised in using it in the provision of clinical care. This summary normalizes information from multiple sources, and as a consequence, information in this document may materially change the coding, format and clinical context of patient data. In addition, data may be omitted in some cases. CLINICAL DECISIONS SHOULD BE BASED ON THE PRIMARY CLINICAL RECORDS. [facility] provides no warranty or guarantee of the accuracy or completeness of information in this document.
== END | disposition home or self-care (01) ==
PROVIDERS: PCP Nurse Practitioner Family; Referring Provider Student in an Organized Health Care Education/Training Program; Visit Provider Student in an Organized Health Care Education/Training Program
DX: K59.00 Constipation, unspecified (principal); R19.7 Diarrhea, unspecified
CPT/HCPCS: 74018